=== PATIENT | male | born 1945 | race Caucasian/White ===

== ENCOUNTER 2018-08-13 12:52 | Outpatient (REF) | payer MEDICARE, MEDICAID, SELFPAY ==
[2018-08-13 22:18] LABS: Anion Gap 8.1 mmol/L (3-11); BUN 15 mg/dL (7-18); CO2 29.9 mmol/L (21.0-32.0); CREATININE 0.83 mg/dL (0.70-1.30); Calcium 10.5 mg/dL (8.5-10.1); Chloride 103 mmol/L (98-107); Glucose 87 mg/dL (70-100); Potassium 4.3 mmol/L (3.5-5.1); Sodium 141 mmol/L (136-145)
== END 2018-08-13 13:12 ==
LOC: NCHCN 12:52
PROVIDERS: PCP Nurse Practitioner Family; Visit Provider Nurse Practitioner Family
DX: R59.9 Enlarged lymph nodes, unspecified (principal); R91.8 Other nonspecific abnormal finding of lung field; E78.5 Hyperlipidemia, unspecified; R03.0 Elevated blood-pressure reading, without diagnosis of hypertension
CPT/HCPCS: 80048

== ENCOUNTER 2018-08-20 01:29 | Outpatient (CLI) | payer MEDICARE, MEDICAID, SELFPAY ==
--- NOTE | 2018-08-20 14:00 | DI.CT_ITS ---
SYMPTOM/DIAGNOSIS: F/U LUNG NODULE R91.8, CHEST CT: There is respiratory motion at the lung bases, limiting the exam. A previously noted left lower lobe nodule is not as well seen but remains present and not changed in size. Calcification is again noted at the left upper lobe. No new nodules, infiltrates or effusions are seen. There is no evidence of adenopathy. A small hiatal hernia is seen. There are few low density lesions in the liver which appear grossly stable. IMPRESSION: Limited exam due to respiratory motion at the lung bases. There has been no gross interval change in the size of the left lower lobe nodule. A 6 month follow up exam could be considered.
== END 2018-08-20 01:49 ==
PROVIDERS: PCP Nurse Practitioner Family; Visit Provider Nurse Practitioner Family
DX: R91.8 Other nonspecific abnormal finding of lung field (principal)
CPT/HCPCS: 71250

== ENCOUNTER 2018-10-11 10:43 | Outpatient (CLI) | payer MEDICARE, MEDICAID, SELFPAY ==
--- NOTE | 2018-10-11 11:18 | DI.US_ITS ---
SYMPTOMS/DIAGNOSIS: NONTOXIC SINGLE THYROID NODULE, E04.1 THYROID ULTRASOUND: Comparison CT scan is 10/01/18. The right lobe measures 4.8 x 1.5 x 1.3 cm. There is a 0.2 cm anechoic avascular cyst in the superior pole of the right lobe. There is a 0.2 cm hypoechoic avascular nodule in the lower pole of the right lobe of the thyroid gland. The left lobe measures 5.3 x 1.9 x 2 cm. There is a 2.7 x 1.9 x 1.6 cm well- circumscribed complex vascular nodule. This corresponds to the finding seen on the CT scan. No internal echogenic findings are seen to suggest calculi. The isthmus is within normal limits. There is a 0.2 cm anechoic avascular cyst in the isthmus. IMPRESSION: A 2.7 cm complex well-circumscribed vascular left thyroid mass. This corresponds to the finding on the CT scan of the neck. The finding is nonspecific. If further evaluation is warranted, nuclear medicine thyroid examination may be performed.
== END 2018-10-11 11:03 ==
PROVIDERS: PCP Nurse Practitioner Family; Visit Provider Physician Assistant
DX: E04.1 Nontoxic single thyroid nodule (principal)
CPT/HCPCS: 76536

== ENCOUNTER 2018-10-15 15:36 | Outpatient (CLI) | payer MEDICARE, MEDICAID, SELFPAY ==
[2018-10-15 16:53] LABS: Calcium 10.2 mg/dL (8.5-10.1); TSH (W/Ref FT4) 0.79 uIU/mL (0.358-3.74)
[2018-10-24 14:22] LABS: 1,25-Dihydroxyvitamin D 61 pg/mL (18-64)
== END 2018-10-15 15:56 ==
PROVIDERS: PCP Nurse Practitioner Family; Visit Provider Physician Assistant
DX: E07.89 Other specified disorders of thyroid (principal); F17.200 Nicotine dependence, unspecified, uncomplicated; E83.52 Hypercalcemia
CPT/HCPCS: 36415; 82310; 82652; 84443

== ENCOUNTER 2019-02-18 22:13 | Outpatient (REF) | payer MEDICARE, MEDICAID, SELFPAY ==
[2019-02-18 22:58] LABS: AST 16 U/L (15-37); Anion Gap 11.4 mmol/L (3-11); BUN 17 mg/dL (7-18); CO2 26.6 mmol/L (21.0-32.0); CREATININE 0.79 mg/dL (0.70-1.30); Calcium 9.6 mg/dL (8.5-10.1); Calculated LDL 85 mg/dL; Chloride 105 mmol/L (98-107); Cholesterol 133 mg/dL (50-200); Glucose 80 mg/dL (70-100); HDL Cholesterol 30 mg/dL (40-60); Potassium 4.4 mmol/L (3.5-5.1); Sodium 143 mmol/L (136-145); Triglyceride 91 mg/dL (30-150)
[2019-02-18 23:10] LABS: ALT 27 U/L (12-78); Creatine Kinase 58 U/L (39-308)
== END 2019-02-18 22:33 ==
LOC: NCHCN 22:13
PROVIDERS: PCP Nurse Practitioner Family; Visit Provider Nurse Practitioner Family
DX: I10 Essential (primary) hypertension (principal); E78.5 Hyperlipidemia, unspecified; E07.9 Disorder of thyroid, unspecified; R22.0 Localized swelling, mass and lump, head
CPT/HCPCS: 80048; 80061; 82550; 83721; 84450; 84460

== ENCOUNTER 2019-02-26 00:30 | Outpatient (CLI) | payer MEDICARE, MEDICAID, SELFPAY ==
--- NOTE | 2019-02-26 12:45 | DI.CTLCSR_ITS ---
SYMPTOMS/DIAGNOSIS: F17.210, CURRENT CIGARETTE SMOKER CT CHEST LUNG CANCER SCREENING: CT scan of the chest was performed according to low dose protocol. Comparison is 08/20/18. There is atherosclerosis of the thoracic aorta but no aneurysmal dilatation is seen. The heart size is within normal limits. No significant pericardial effusion is present. Coronary artery calcifications are identified. No evidence of mediastinal or hilar adenopathy, pleural effusion or pneumothorax is identified. There is a calcified granuloma in the left upper lobe. The nodular area in the left lower lobe is again seen and measures 1 cm in maximum diameter. It is unchanged in size compared to the prior examination. No new pulmonary nodules are seen. The tracheobronchial tree is unremarkable. There are a few tiny blebs seen in the right upper lobe. Scarring or atelectatic changes are seen in the lung bases. The upper abdominal images show no acute abnormality. Degenerative changes are seen in the spine. IMPRESSION: Stable pulmonary nodule. Category 4A examination. Lung-RAD Category: Lung RADS Category 4A- Suspicious. Three month follow up CT or PET CT.
== END 2019-02-26 00:50 ==
PROVIDERS: PCP Nurse Practitioner Family; Visit Provider Nurse Practitioner Family
DX: Z12.2 Encounter for screening for malignant neoplasm of respiratory organs (principal); F17.210 Nicotine dependence, cigarettes, uncomplicated; R91.1 Solitary pulmonary nodule
CPT/HCPCS: G0297

== ENCOUNTER 2019-05-17 11:51 | Outpatient (CLI) | payer MEDICARE, MEDICAID, SELFPAY ==
[2019-05-17 14:38] LABS: Calcium 10.1 mg/dL (8.5-10.1); TSH (W/Ref FT4) 0.63 uIU/mL (0.36-3.74)
== END 2019-05-17 12:11 ==
PROVIDERS: PCP Nurse Practitioner Family; Visit Provider Otolaryngology Otolaryngology/Facial Plastic Surgery
DX: E04.1 Nontoxic single thyroid nodule (principal)
CPT/HCPCS: 36415; 82310; 84443

== ENCOUNTER 2019-05-20 00:51 | Outpatient (CLI) | payer MEDICARE, MEDICAID, SELFPAY ==
--- NOTE | 2019-05-20 12:05 | DI.US_ITS ---
EXAM: US THYROID CLINICAL HISTORY: THYROID NODULE E04.1, F17.200 SMOKER. TECHNIQUE: Ultrasound performed using standard protocol. COMPARISON: US thyroid from 10/11/2018 FINDINGS: Thyroid ultrasound was performed according to the usual protocol. Right thyroid lobe measures 52 x 1 1 x 18 millimeters and left thyroid lobe measures 50 x 16 x 29 millimeters. The thyroid isthmus stefany ures 3 millimeters in thickness. To tiny right lobe thyroid cysts are noted. There is a dominant 24 millimeter in greatest diameter l eft thyroid lobe complex mass as seen on prior study of August 2018. No change in appearance since that time. There is moderate generalized heterogeneity of the thyroid parenchyma. IMPRESSION: Stable complex nodule of the left thyroid lobe, follow-up ultrasound suggested in 12 months. This measured 27 millimeters in diameter on the prior study and 24 millimeters in greatest diameter on the current study.
== END 2019-05-20 01:11 ==
PROVIDERS: PCP Nurse Practitioner Family; Visit Provider Otolaryngology Otolaryngology/Facial Plastic Surgery
DX: E04.1 Nontoxic single thyroid nodule (principal); F17.200 Nicotine dependence, unspecified, uncomplicated
CPT/HCPCS: 76536

== ENCOUNTER 2019-05-28 13:35 | Outpatient (CLI) | payer MEDICARE, MEDICAID, SELFPAY ==
[2019-05-28 15:04] LABS: Anion Gap 8.5 mmol/L (3-11); CO2 28.5 mmol/L (21.0-32.0); Calcium 9.7 mg/dL (8.5-10.1); Chloride 105 mmol/L (98-107); Potassium 4.2 mmol/L (3.5-5.1); Sodium 142 mmol/L (136-145); TSH (W/Ref FT4) 0.53 uIU/mL (0.36-3.74)
[2019-05-29 12:10] LABS: Parathyroid Hormone,Intact 63 pg/ml (19-88)
[2019-05-30 06:00] LABS: Vitamin D 25 Total 31.1 ng/ml (30-100)
== END 2019-05-28 13:55 ==
PROVIDERS: PCP Nurse Practitioner Family; Visit Provider Otolaryngology Otolaryngology/Facial Plastic Surgery
DX: E04.1 Nontoxic single thyroid nodule (principal); E83.52 Hypercalcemia
CPT/HCPCS: 36415; 80051; 82306; 82310; 83970; 84443

== ENCOUNTER 2019-06-11 01:26 | Outpatient (CLI) | payer MEDICARE, MEDICAID, SELFPAY ==
[2019-06-11 12:16] LABS: CREATININE 0.82 mg/dL (0.70-1.30)
--- NOTE | 2019-06-11 12:57 | DI.CT_ITS ---
EXAM: CT CHEST W CLINICAL HISTORY: LUNG NODULE R91.8 TECHNIQUE: 70 cc of Omnipaque 350 IV COMPARISON: CHEST - LUNG CANCER SCREENING from 02/23/2018 CT CHEST LUNG CANCER SCREEN from 02/26/2019 FINDINGS: Exam is mildly limited by respiratory motion at the lung bases. Previously noted nodule in the left lower lobe appears unchanged. Calcification is again seen in the left upper lobe. There are mild u nderlying emphysematous changes and mild pulmonary scarring. No adenopathy seen. The heart size is normal. Coronary artery calcifications and atherosclerotic changes of the aorta are noted. No infil trates, pleural or pericardial effusions are seen. There is a stable nodule in the left lobe of the thyroid. Multiple low-density lesions are seen in the liver, unchanged, consistent with cysts. The gallbladder, spleen, pancreas and upper portions of the kidneys are unremarkable. IMPRESSION: The left lower lobe nodule is unchanged when compared with 2018. Annual low-dose screening CT is rec ommended.
[2019-06-11] MEDS: Omnipaque 350 MG/ML 100 ML BTL IV (12:59)
== END 2019-06-11 01:46 ==
PROVIDERS: PCP Nurse Practitioner Family; Visit Provider Nurse Practitioner Family
DX: R91.8 Other nonspecific abnormal finding of lung field (principal); J98.4 Other disorders of lung; J43.8 Other emphysema; E04.1 Nontoxic single thyroid nodule
CPT/HCPCS: 71260; 82565; J3490

== ENCOUNTER 2019-11-26 00:44 | Outpatient (CLI) | payer MEDICARE, MEDICAID, SELFPAY ==
--- NOTE | 2019-11-26 | DI.US_ITS ---
EXAM: US THYROID CLINICAL HISTORY: THYROID NODULE, E04.1,THYROID MASS,E07.9. TECHNIQUE: Ultrasound thyroid performed using standard protocol. COMPARISON: US thyroid from 10/11/2018 US THYROID from 05/20/2019 FINDINGS: Echogenicity: Overall thyroid echotexture is normal. There are a few tiny cystic areas. Vascularity: Normal. ISTHMUS: 4 mm RIGHT LOBE: Size: 5.2 by 1.4 x 1.8 cm cm Nodules: None. LEFT LOBE: Size: 5.0 x 1.6 x 2.9 cm Echogenicity: Normal. Vascularity: Normal. Nodules: Circumscribed nodule measuring 2.8 x 1.7 x 1.8 cm. The appearance is unchanged.. OTHER FINDINGS: None. IMPRESSION: Stable circumscribed nodule at the upper pole of the left lobe of the thyroid.. DATA REPOSITORY:
== END 2019-11-26 01:04 ==
PROVIDERS: PCP Nurse Practitioner Family; Visit Provider Otolaryngology Otolaryngology/Facial Plastic Surgery
DX: E04.1 Nontoxic single thyroid nodule (principal); E07.89 Other specified disorders of thyroid
CPT/HCPCS: 76536

== ENCOUNTER 2019-12-05 01:09 | Outpatient (CLI) | payer MEDICARE, MEDICAID, SELFPAY ==
[2019-12-05 11:58] LABS: TSH (W/Ref FT4) 0.12 uIU/mL (0.36-3.74)
[2019-12-05 12:14] LABS: FREE T4 1.34 ng/dL (0.76-1.46)
== END 2019-12-05 01:29 ==
PROVIDERS: PCP Nurse Practitioner Family; Visit Provider Otolaryngology Otolaryngology/Facial Plastic Surgery
DX: E04.1 Nontoxic single thyroid nodule (principal); E07.9 Disorder of thyroid, unspecified
CPT/HCPCS: 36415; 84439; 84443

== ENCOUNTER 2019-12-27 04:01 | Outpatient (CLI) | payer MEDICARE, MEDICAID, SELFPAY ==
[2019-12-27 11:36] LABS: ALT 29 U/L (16-63); AST 17 U/L (15-37); Albumin 4.2 g/dL (3.4-5.0); Alkaline Phosphatase 39 U/L (46-116); Anion Gap 7.7 mmol/L (3-11); BUN 18 mg/dL (7-18); CO2 29.3 mmol/L (21.0-32.0); Calcium 9.8 mg/dL (8.5-10.1); Chloride 102 mmol/L (98-107); Glucose 84 mg/dL (74-106); HDL Cholesterol 34 mg/dL (40-60); LDL CHOLESTEROL 138 mg/dL (<100); Potassium 4.3 mmol/L (3.5-5.1); Sodium 139 mmol/L (136-145); Total Protein 7.5 g/dL (6.4-8.2)
[2019-12-27 11:39] LABS: FREE T4 1.23 ng/dL (0.76-1.46)
[2019-12-27 11:47] LABS: Creatine Kinase 98 U/L (39-308)
[2019-12-27 16:25] LABS: T3,Free 4.9 pg/mL (2.8-5.3)
== END 2019-12-27 04:21 ==
PROVIDERS: Physician Assistant; PCP Nurse Practitioner Family; Visit Provider Nurse Practitioner Family
DX: I10 Essential (primary) hypertension (principal); E78.5 Hyperlipidemia, unspecified; E04.1 Nontoxic single thyroid nodule
CPT/HCPCS: 36415; 80053; 82550; 83721; 83718; 84439; 84481

== ENCOUNTER 2019-12-31 00:56 | Outpatient (CLI) | payer MEDICARE, MEDICAID, SELFPAY ==
--- NOTE | 2019-12-31 | DI.US_ITS ---
EXAM: US HERNIA CLINICAL HISTORY: LARGE NON TENDER MASS, LIKELY HERNIA, K46.9,. TECHNIQUE: Ultrasound was performed using standard protocol. COMPARISON: No exams were available for comparison FINDINGS: Sonographic assessment utilizing grayscale and color Doppler imaging was performed and targeted to th e area of clinical concern. There is a left inguinal hernia. With Valsalva, a loop of bowel is seen to enter the hernia. There is no fluid or findings to suggest incarceration. No mass or adenopathy is seen. IMPRESSION: Reducible left inguinal hernia. DATA REPOSITORY:
== END 2019-12-31 01:16 ==
PROVIDERS: PCP Nurse Practitioner Family; Visit Provider Nurse Practitioner Family
DX: K40.90 Unilateral inguinal hernia, without obstruction or gangrene, not specified as recurrent (principal)
CPT/HCPCS: 76857

== ENCOUNTER 2020-01-09 01:59 | Outpatient (CLI) | payer MEDICARE, MEDICAID, SELFPAY ==
--- NOTE | 2020-01-09 10:00 | DI.NM_ITS ---
EXAM: NM I123 THYROID UP SC DAY 1 CLINICAL HISTORY: LOW TSH LEVEL,R79.89,HYPERTHYROIDISM,E05.90,THYROID NODULE. COMPARISON: No exams were available for comparison EXAMINATION: This examination was performed as a 2 day protocol, please see the day 2 report January 10, 2020. I 123 thyroid scan and uptake showed normal range total thyroid uptake with focal hyper intensity of uptake in left upper pole of the thyroid corresponding to a thyroid nodule identified ultrasonographi bhargav. FINDINGS: IMPRESSION:
== END 2020-01-09 02:19 ==
PROVIDERS: PCP Nurse Practitioner Family; Visit Provider Physician Assistant
DX: E05.90 Thyrotoxicosis, unspecified without thyrotoxic crisis or storm (principal); E07.89 Other specified disorders of thyroid; R79.89 Other specified abnormal findings of blood chemistry
CPT/HCPCS: A9516

== ENCOUNTER 2020-01-10 01:59 | Outpatient (CLI) | payer MEDICARE, MEDICAID, SELFPAY ==
--- NOTE | 2020-01-10 10:00 | DI.NM_ITS ---
EXAM: NM I123 THYROID UP SC DAY 2 CLINICAL HISTORY: LOW TSH LEVEL,R79.89,HYPERTHYROIDISM,E05.90,THYROID NODULE,E04.1. COMPARISON: US US THYROID from 11/26/2019 NM NM I123 THYROID UP SC DAY 1 from 01/09/2020 EXAMINATION: Thyroid uptake and scan was performed according to the usual protocol. 340 microcuries of I 123 was administered. Imaging of the thyroid shows relatively increased uptake in the upper pole of left thyroid lobe, catherine esponding to the nodule identified on thyroid ultrasound, this indicates that this is a hyperfunction ing nodule. 24 hour and 4 hour uptake determination show 7 percent uptake at 4 hours and 18 percent uptake at 24 hours, each of these values is within the normal range. FINDINGS: Normal thyroid uptake determination utilizing I 123. Increased localized uptake focally in the upper pole of the left thyroid lobe corresponding to the ul trasound graphically identified left upper pole mass, this appears to be a hyper functioning thyroid nodule. IMPRESSION:
== END 2020-01-10 02:19 ==
PROVIDERS: PCP Nurse Practitioner Family; Visit Provider Physician Assistant
DX: R79.89 Other specified abnormal findings of blood chemistry (principal); E05.90 Thyrotoxicosis, unspecified without thyrotoxic crisis or storm; E04.1 Nontoxic single thyroid nodule
CPT/HCPCS: 78014; A9512

== ENCOUNTER → 2020-01-24 07:45 | Outpatient (BNVA) | payer MEDICARE, MEDICAID, SELFPAY | PROVIDERS: PCP Nurse Practitioner Family; Referring Provider Nurse Practitioner Family; Visit Provider Surgery | DX: K40.90 Unilateral inguinal hernia, without obstruction or gangrene, not specified as recurrent (principal); Z01.818 Encounter for other preprocedural examination | CPT/HCPCS: 99203; 99214 ==

== ENCOUNTER 2020-02-27 00:14 | Outpatient (CLI) | payer MEDICARE, MEDICAID, SELFPAY ==
--- NOTE | 2020-02-27 | DI.US_ITS ---
APPROVED REPORT EXAM: Comprehensive 2D, Doppler, and color-flow Echocardiogram Patient Location: Out-Patient Lead Burner Supervisor: Verónica Cunningham RDCS (AE) Indications: Murmur Other Information Study Quality: Adequate Conclusion Left Ventricle : The left ventricle is normal size. The left ventricular systolic function is normal. The left ventricular ejection fraction is within the normal range. There is normal left ventricular wall thickness. There is normal LV segmental wall motion. LVEF is 55%. Right Ventricle : The right ventricle is normal size. The right ventricular systolic function is norm al. The RVSP is 23mmHg. Atria : Left atrium is borderline dilated. Right atrium is mildly dilated. Aortic Valve : Aortic valve is trileaflet. There is no aortic valvular stenosis. Mild aortic regurgit ation. Great Vessels : The aortic root is normal in size. The ascending aorta is normal in size. Aortic arch is normal in caliber. IVC is normal in size and collapses >50% with inspiration. There is no prior study available for comparison. Wall motion Left Ventricle The left ventricle is normal size. The left ventricular systolic function is normal. The left ventric ular ejection fraction is within the normal range. There is normal left ventricular wall thickness. T here is normal LV segmental wall motion. There is no ventricular septal defect visualized. LVEF is 55 %. Right Ventricle The right ventricle is normal size. The right ventricular systolic function is normal. The RVSP is 23 mmHg. Atria Left atrium is borderline dilated. Right atrium is mildly dilated. The interatrial septum is intact w ith no evidence for an atrial septal defect. Aortic Valve Aortic valve is trileaflet. There is no aortic valvular stenosis. Mild aortic regurgitation. Mitral Valve The mitral valve is normal in structure. No evidence of mitral valve stenosis. Trace to mild mitral r egurgitation. Tricuspid Valve The tricuspid valve is normal in structure. There is no tricuspid valve stenosis. Mild tricuspid regu rgitation. Pulmonic Valve The pulmonary valve is normal in structure. There is no pulmonic valvular stenosis. Mild pulmonic reg urgitation. Great Vessels The aortic root is normal in size. The ascending aorta is normal in size. Aortic arch is normal in ca liber. IVC is normal in size and collapses >50% with inspiration. Pericardium There is no pericardial effusion. 2D Dimensions IVSD d PLAX 0.93 cm M: 0.6-1.2 LVPW d PLAX 0.90 cm M: 0.6 - 1.2 LVID d PLAX 4.75 cm M: 4.2 - 5.8 LVDs 3.46 cm M: 2.5 - 4.0 Ao Root d 3.12 cm M: 3.1 - 3.7 Ao Asc Diam d 3.27 cm M: 2.6 - 3.4 LV EF Teichholz 52.8 % M-Mode TAPSE 2.42 cm (M/F) >1.7 LV Diastology MV E' medial 0.076 (>0.07 m/s) E/A Ratio 0.9 MV E' lateral 0.108 (>0.1 m/s) MV E Vmax 0.55 (0.4-1.3 m/s) MV E/E' medial 7.20 MV A Vmax 0.63 (0.4-1.3 m/s) MV E/E' lateral 5.11 MV E/A Ratio 0.08 E Peak Velocity 0.55 m/s A Peak Velocity 0.63 m/s Aortic Valve LVOT Vmax 1.26 m/s CHRISTINA 3.56 cm2 LVOT Mean Josesito. 0.71 m/s AoV Area Vmax 3.56 cm2 LVOT Peak Grad 6.4 mmHg AoV Area/ BSA (Vmax) 2.04 cm2/m2 LVOT Mean Grad 2.5 mmHg CHRISTINA Mean Josesito. 3.01 cm2 LVOT VTI 0.217 m CHRISTINA Mean Josesito. Index 1.73 cm2/m2 LVOT Diam s 2.18 cm AoV Vmax 1.32 m/s Velocity Ratio 0.95 AoV Mean Josesito. 0.88 m/s AoV Peak Grad 7.0 mmHg AoV Mean Grad 3.7 mmHg Mitral Valve MV DT 196 (160-240 msec) Pulmonary Valve PV Vmax 1.16 (0.5-1.5 m/s) PV Peak Grad 5.4 mmHg PV Mean Grad 2.3 mmHg Tricuspid Valve TR Peak Grad 19.9 mmHg TR Vmax 2.23 m/s RA Pressure 3.00 mmHg RVSP (TR) 22.9 mmHg
== END 2020-02-27 00:34 ==
PROVIDERS: PCP Nurse Practitioner Family; Visit Provider Nurse Practitioner Family
DX: R01.1 Cardiac murmur, unspecified (principal); I35.1 Nonrheumatic aortic (valve) insufficiency
CPT/HCPCS: 93306

== ENCOUNTER 2020-03-04 09:30 | Outpatient (REF) | payer MEDICARE, MEDICAID, SELFPAY ==
[2020-03-04 23:16] LABS: ALT 29 U/L (16-63); AST 16 U/L (15-37); HDL Cholesterol 29 mg/dL (40-60); LDL CHOLESTEROL 90 mg/dL (<100)
[2020-03-04 23:30] LABS: Creatine Kinase 65 U/L (39-308)
== END 2020-03-04 09:50 ==
LOC: NCHCN 09:30
PROVIDERS: PCP Nurse Practitioner Family; Visit Provider Nurse Practitioner Family
DX: E78.5 Hyperlipidemia, unspecified (principal)
CPT/HCPCS: 82550; 83721; 83718; 84450; 84460

== ENCOUNTER 2020-03-21 07:33 | Outpatient (CLI) | payer MEDICARE, MEDICAID, SELFPAY ==
[2020-03-22 23:38] LABS: COVID-19 RT-PCR Result NEGATIVE (Negative)
== END 2020-03-21 07:53 ==
PROVIDERS: PCP Nurse Practitioner Family; Visit Provider Surgery
DX: Z01.818 Encounter for other preprocedural examination (principal)
CPT/HCPCS: U0003

== ENCOUNTER 2020-03-25 11:30 | Day surgery (SDC) | payer MEDICARE, MEDICAID, SELFPAY ==
--- NOTE | 2020-03-23 11:32 | NUR.NOTE ---
03/23/20: Was informed by Blane Duncan about patients cognition level regarding his COVID testing this weekend, pt. drove to [facility] office, and sat in [facility] for an hour, before COVID testing center called pt. to see where he was, per Blane, pt. told him, that he was here for his surgery, and he didn't know how he was going to get home from his surgery. Pt. was educated that this was not his surgery date and that he was going to be COVID tested. This RN did a pre-op call with the pt. female friend Scarlett Schultz who is his caregiver. She seemed somewhat confused herself, but was able to answer questions for the patient regarding his medical history and medications. Pt. caregiver was educated on pre-op instructions, and arrival time, also reminded that he is to quarentine and by that was instructed to stay home and not leave the house until his surgery day. Caregiver stated she is going to be his ride to and from surgery, and stated she would be home with his post-operatively. This RN reached out to Ann George at [facility] to inform her of said events and she stated that she will inform Dr. Resendiz, and this RN also informed care management to reach out to Pt. to provided support and possible VNA survices if able, post-op.Nursing Note:
[2020-03-25] VITALS (7 sets, daily range): BP systolic 136–154; BP diastolic 71–83; PULSE 74–80; RESP 15–26; TEMP 36.3–36.7; O2SAT 94–97
--- NOTE | 2020-03-25 06:52 | W.PM.OP ---
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 Has history of prior strangulated RIH Findings: Large Direct inguinal hernia Procedure Description: After informed concent was obtained the patient was taken to the operating room and placed in a supine position. Monitors and SCDs were applied and a timeout was done. The patient's name, date of , procedure type, procedure site, allergies to medications, preoperative antibiotic, and DVT prophylaxis were all reviewed. Fire risk was assessed. Next anesthesia did a tap block on the left side under ultrasound guidance. Please see their separate dictation. Once anesthesia was done the abdomen was prepped and draped in a sterile surgical fashion. 1% lidocaine was injected into the dermis in the left lower quadrant. An incision was made with a 10 blade in the left lower quadrant. Dissection was done with cautery through the subcutaneous tissues and Nash's fascia down to the external oblique fascia. The external ring was identified and the external oblique fascia was opened sharply through the external ring. The cut fascia was grasped with hemostats the cord structures were identified and a Randolph drain was placed around them. The cremasteric muscle was dissected away from the cord structures using both cautery and blunt dissection. A large Direct defect was noted with omentuma nd pre-peritoneal fat coming up through the floor. A 3 x 6 piece of mesh was then cut to size and attached to the lacunar ligament using a 2-0 Prolene double armed suture. The mesh was secured laterally and medially with a 2-0 Prolene, with a running suture. The tails of the mesh were wrapped around the cord structures effectively cinching down the internal ring. Once the mesh was secured the tissues were irrigated with some normal saline. No bleeding was identified. The external oblique fascia was re-approximated using 2-0 Vicryl running suture. The Nash's fascia was re-approximated using interrupted 3-0 Vicryl. The dermis was re-approximated with a running 4-0 Vicryl. The skin was cleaned and dried and skin affix was applied. The patient was woken up and taken back to recovery in stable condition. There were no immediate complications. Sponge, instrument and needle counts were correct at the end of the case x2.
--- NOTE | 2020-03-25 06:53 | PDOC.DSDIS_ITS ---
Discharge Plan Disposition Patient Disposition: HOME Condition: Good Discharge Details Reason For Visit: [facility] Attending Provider: Sandra Resendiz Primary Care Provider: Dede Garcia Home Meds and New Rx's Prescriptions: Continued lisinopril 10 mg tablet 10 mg PO DAILY RF: 0 simvastatin 20 mg tablet 20 mg PO DAILY RF: 0 nitroglycerin 0.4 MG tablet, sublingual 0.4 mg Sublingual PRN PRNRF: 0 Discharge Instructions Instructions: Inguinal Hernia Repair (DC) Additional Instructions: Activity at Home after surgery: 1. Make sure you walk outside at least 4 times per day 2. You should be able to climb a flight of stairs 3. No driving while in pain or taking pain medications 4. No strenuous activity or heavy lifting for 4 weeks (open surgery) Diet, Nutrition, & wound healin. Avoid alcohol until after you are recovered from your surgery 2. Make sure to eat plenty of lean protein (meat, fish, eggs, cottage cheese, beans) 3. Eat a variety of fruits and vegetables. Eat plenty of high fiber foods to avoid constipation. 4. Drink plenty of liquids to stay hydrated and avoid constipation Pain Medications: 1. Tylenol 650 mg every 6 hours as needed and Ibuprofen 600 mg every 6 hours as needed.May alternate between the two every 3 hours 2. If a narcotic has been prescribed take as directed only for breakthrough pain For Constipation: 1. Take Milk of Magnesia or MiraLax as needed for constipation Other: 1. You may shower daily. Do not scrub the incisions 2. Do not soak the incisions for 1 week 3. You may alternate ice and heat as needed for pain and swelling Wound Care: 1. Keep the incisions clean and dry Other Services that may have been ordered: 0 Home Health- to help with dressing changes 0 Outpatient physical therapy Please call our office if you develop: 1. Fevers >101.5 2. Nausea or Vomiting 3. Worsening pain 4. Redness and thick discharge from the wounds If after hours please call the Hospital at and ask to speak to the on-call surgeon Referrals: Sandra Resendiz MD [ [facility] STAFF PHYSICIAN] - 04/07/20 10:30 am Activity:: Activity as Tolerated Diet:: As Tolerated Discharge Orders Discharge Orders: Discharge Order (Routine); Ordered 03/25/20 Ordered By: Sandra Resendiz
[2020-03-25] MEDS: Acetaminophen 500 MG TAB 1000 MG PO (12:10)
[2020-03-25] MEDS: Celecoxib 200 MG CAP PO (12:11)
[2020-03-25] MEDS: Lactated Ringers 1,000 ML 80 ML IV (12:20)
--- NOTE | 2020-03-25 12:35 | HPE_ITS ---
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 Has h istory of prior strangulated RIH. Discussed inguinal hernia repair with mesh, discussed complications and risks. Discussed post-operative restrictions. Discussed pain controll. Reveiwed COVID testing as well as quarentine requirements. 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 Has history of prior strangulated RIH. Discussed inguinal hernia repair with mesh, discussed complications and risks. Discussed post-operative restrictions. Discussed pain controll. Reveiwed COVID testing as well as quarentine requirements. There have been no changes in his history since he was seen Review of Systems Cardiovascular Cardiovascular: Denies chest pain, Denies chest pain at rest, Denies irregular heart rhythm, Denies dyspnea and Denies dyspnea on exertion Respiratory Respiratory: Reports cough, Denies dyspnea and Denies dyspnea on exertion Gastrointestinal Gastrointestinal: Reports as per HPI Genitourinary Genitourinary: Denies dysuria, Reports urinary incontinence and Denies urinary urgency Endocrine Endocrine: Reports system reviewed and no additional complaints, except as documented Hematologic/Lymphatic Hematologic/Lymphatic: Denies easy bruising and Denies lymphadenopathy [facility] Medical History Current smoker (Inactive) Hyperlipidemia (Acute) Hypertension (Chronic) Hyperthyroidism (Chronic) Lung nodule (Acute) Onychomycosis (Acute) Thyroid mass (Inactive) Thyroid nodule (Inactive) Venous stasis ulcer limited to breakdown of skin with varicose veins Surgical History H/O vein stripping (Acute) RLE History of umbilical hernia repair (Acute) S/P right inguinal hernia repair (Acute) Social History (Updated 01/24/20 @ 09:38 by Sandra Resendiz MD) Smoking/Tobacco Use Status: Current every day Tobacco Type: cigarettes Years smoked: 53 Alcohol Intake: never Drug use: Never Substance use type: does not use Household members: none Other: Has a Caregiver- Scarlett Do you feel safe at home: Yes Additional Social history: Caregiver Scarlett Richard answering questions for pt. Meds Home Medications and Allergies Home Medications Medication Instructions Recorded Confirmed Type nitroglycerin 0.4 mg SUBLINGUAL PRN PRN 03/01/17 03/23/20 History lisinopril 10 mg tablet 10 mg PO DAILY 01/13/20 03/25/20 History simvastatin 20 mg tablet 20 mg PO DAILY 01/30/20 03/25/20 History Allergies Allergy/AdvReac Type Severity Reaction Status Date / Time No Known Allergies Allergy Unverified 03/25/20 11:58 Exam Resp Effort & Inspection: normal respiratory effort Auscultation: clear to auscultation bilaterally Cardio Rate: regular rate Rhythm: regular rhythm Heart Sounds: no gallops, murmur and no rubs GI Inspection: normal to inspection Palpation: soft and no hepatosplenomegaly Auscultation: normal bowel sounds Results Last Vital Signs Temp 98.1 F 03/25/20 11:50 Pulse 80 03/25/20 11:50 Resp 20 03/25/20 11:50 BP 136/76 03/25/20 11:50 Pulse Ox 95 03/25/20 11:50
[2020-03-25] MEDS: ceFAZolin 2 GM/50 ML BAG IVPB (12:38)
[2020-03-25] MEDS: Bupivacaine LIPOSOME/PF 133 MG/10 ML VIAL IJ (13:00)
[2020-03-25] MEDS: Bupivacaine 0.25% Pres-Free 30 ML VIAL (13:00)
[2020-03-25] MEDS: Lidocaine 1% Multi-Dose 50 ML VIAL (13:14)
== END 2020-03-25 16:05 | disposition home or self-care (01) ==
LOC: SUR 11:31
PROVIDERS: PCP Nurse Practitioner Family; Visit Provider Surgery
PROC: (CPT 49505; principal; 2020-03-25 12:30)
DX: K40.90 Unilateral inguinal hernia, without obstruction or gangrene, not specified as recurrent (principal); G89.18 Other acute postprocedural pain; F17.210 Nicotine dependence, cigarettes, uncomplicated; I10 Essential (primary) hypertension
CPT/HCPCS: 49505; 76942; NC; C1781; J0690; J1100; J1885; J2405; J2704

== ENCOUNTER → 2020-04-07 14:15 | Outpatient (BNVA) | payer MEDICARE, MEDICAID, SELFPAY | PROVIDERS: PCP Nurse Practitioner Family; Referring Provider Nurse Practitioner Family; Visit Provider Surgery | DX: Z48.815 Encounter for surgical aftercare following surgery on the digestive system (principal); I10 Essential (primary) hypertension ==

== ENCOUNTER 2020-06-12 04:24 | Outpatient (CLI) | payer MEDICARE, MEDICAID, SELFPAY ==
--- NOTE | 2020-06-12 | DI.CTLCSR_ITS ---
EXAM: CT CHEST LUNG CANCER SCREEN CLINICAL HISTORY: F/U LUNG NODULE,R91.8,CURRENT SMOKER,F17.210,SCREENING FOR LUNG CA TECHNIQUE: Imaging Protocol: Axial computed tomography images with coronal and sagittal reformatted images were created and reviewed COMPARISON: CT CT CHEST LUNG CANCER SCREEN from 02/26/[address] CHEST W from 06/11/2019 FINDINGS: Tracheobronchial tree: Patent where visualized. Mediastinum and Tresa: No dominant adenopathy or fluid collection. Calcified lymph node in the left hi lum. Pulmonary parenchyma: No focal consolidation. The left lower lobe nodule is unchanged. Calcified gr anuloma in the left upper lobe is unchanged. No new pulmonary nodules. Lung Nodules: Stable left lower lobe pulmonary nodule. Pleura: No effusion or pneumothorax. Heart: The heart is not dilated. Marked coronary artery calcification. No pericardial effusion. Aorta: Thoracic aorta non-dilated.Atherosclerosis. Upper abdomen: Unremarkable. Bones: Within normal limits. Degenerative changes. Soft Tissues: Unremarkable. IMPRESSION: Stable left lower lobe pulmonary nodule. Lung RADS Cat 2 - Benign Appearance / Behavior: Nodules with a very low likelihood of becoming a clin ically active cancer due to size or lack of growth Lung-RADS 1.0 CATEGORIES: Category 0 - Prior chest CT exam(s) being located for comparison. Category 1 - Annual screening in 12 months. No nodules or definitely benign nodules. Category 2 - Annual screening in 12 months. Benign appearance. Nodules with low likelihood of becomin g active cancer. Category 3 - 6-month follow-up. Probably benign. Short-term follow-up suggested. Nodules with low lik elihood of becoming active cancer. Category 4A - 3-month follow-up and CT/PET if >8 mm in size. Suspicious finding. Findings which requi re additional testing. Category 4B - Findings which require additional testing and tissue sampling. Suspicious finding. C Added to Any of the Above - History of prior lung cancer screening. S Added to Any of the Above - Significant unexpected other finding. RADIATION DOSE DELIVERED: 78.53mGy.cm Total DLP DATA REPOSITORY: All CT scans at this facility are submitted to the National Radiology Data Registry (NRDR) Dose Index Registry (DIR) with the [employer] (A[employer]). RADIATION OPTIMIZATION: All CT scans at this facility use at least one of these dose optimization te chniques: automated exposure control; mA and/or kV adjustment per patient size (includes targeted exa ms where dose is matched to clinical indication); or iterative reconstruction.
== END 2020-06-12 04:44 ==
PROVIDERS: PCP Nurse Practitioner Family; Visit Provider Nurse Practitioner Family
DX: R91.1 Solitary pulmonary nodule (principal); F17.210 Nicotine dependence, cigarettes, uncomplicated
CPT/HCPCS: G0297

== ENCOUNTER 2020-09-29 20:01 | Outpatient (REF) | payer MEDICARE, MEDICAID, SELFPAY ==
[2020-09-29 15:36] LABS: Anion Gap 10.2 mmol/L (3-11); BUN 16 mg/dL (7-18); CO2 26.8 mmol/L (21.0-32.0); CREATININE 0.8 mg/dL (0.70-1.30); Calcium 10.3 mg/dL (8.5-10.1); Chloride 102 mmol/L (98-107); Glucose 88 mg/dL (74-106); Potassium 4.4 mmol/L (3.5-5.1); Sodium 139 mmol/L (136-145)
== END 2020-09-29 20:02 | disposition home or self-care (01) ==
LOC: NCHCN 20:01
PROVIDERS: PCP Nurse Practitioner Family; Visit Provider Nurse Practitioner Family
DX: I10 Essential (primary) hypertension (principal)
CPT/HCPCS: 80048

== ENCOUNTER 2021-03-18 09:42 | Outpatient (REF) | payer MEDICARE, MEDICAID, SELFPAY ==
[2021-03-18 14:29] LABS: ALT 26 U/L (16-63); AST 20 U/L (15-37); HDL Cholesterol 32 mg/dL (40-60); LDL CHOLESTEROL 91 mg/dL (<100)
[2021-03-18 20:18] LABS: Creatine Kinase 147 U/L (39-308)
== END 2021-03-18 09:43 | disposition home or self-care (01) ==
LOC: NCHCN 09:42
PROVIDERS: PCP Nurse Practitioner Family; Visit Provider Nurse Practitioner Family
DX: E78.5 Hyperlipidemia, unspecified (principal)
CPT/HCPCS: 82550; 83721; 83718; 84450; 84460

== ENCOUNTER 2021-06-14 00:30 | Outpatient (CLI) | payer MEDICARE, MEDICAID, SELFPAY ==
--- NOTE | 2021-06-14 11:00 | DI.CTLCSR_ITS ---
Exam(s) CT CHEST LUNG CANCER SCREEN EXAM: CT CHEST LUNG CANCER SCREEN CLINICAL HISTORY: CIGARETTE SMOKER F17.210, LUNG NODULE KENRICK, SCREENING FOR LUNG CANCER TECHNIQUE: Imaging Protocol: Axial computed tomography images with coronal and sagittal reformatted images were created and reviewed COMPARISON: CT CT CHEST LUNG CANCER SCREEN from 02/26/[address] CHEST LUNG CANCER SCREEN from 02/26/[address] CHEST LUNG CANCER SCREEN from 06/12/[address] CHEST LUNG CANCER SCREEN from 06/12/2020 FINDINGS: Tracheobronchial tree: Patent where visualized. Pulmonary parenchyma: No consolidation or dominant measurable mass. Scarring in the lung bases. Stab le calcified granuloma in the left upper lobe. Lung Nodules: Stable 9 mm left lower lobe pulmonary nodule. No new pulmonary nodules. Mediastinum and Tresa: No dominant adenopathy or fluid collection. Calcified lymph node in the left hi lum. Thyroid gland: Unremarkable. Pleura: No effusion or pneumothorax. Heart: The heart is not dilated. Marked coronary artery calcification. No pericardial effusion. Aorta: Thoracic aorta non-dilated.Atherosclerosis. Upper abdomen: Unremarkable. Soft Tissues: Mild bilateral gynecomastia. Bones: Old nonunited right 6 rib fracture. Age-appropriate degenerative changes in the spine. IMPRESSION: Stable 1 mm left lower lobe pulmonary nodule. No new pulmonary nodules. Lung RADS Cat 2 - Benign Appearance / Behavior: Nodules with a very low likelihood of becoming a clin ically active cancer due to size or lack of growth Lung-RADS 1.0 CATEGORIES: Category 0 - Prior chest CT exam(s) being located for comparison. Category 1 - Annual screening in 12 months. No nodules or definitely benign nodules. Category 2 - Annual screening in 12 months. Benign appearance. Nodules with low likelihood of becomin g active cancer. Category 3 - 6-month follow-up. Probably benign. Short-term follow-up suggested. Nodules with low lik elihood of becoming active cancer. Category 4A - 3-month follow-up and CT/PET if >8 mm in size. Suspicious finding. Findings which requi re additional testing. Category 4B - Findings which require additional testing and tissue sampling. Suspicious finding. Modifier S- Potentially clinically significant finding. (Non lung cancer) RADIATION DOSE DELIVERED: 72.79mGy.cm Total DLP 1.84mGy CTDIvol 72.79mGy.cm Total DLP 1.84mGy CTDIvol DATA REPOSITORY: All CT scans at this facility are submitted to the National Radiology Data Registry (NRDR) Dose Index Registry (DIR) with the [employer] (ACR). RADIATION OPTIMIZATION: All CT scans at this facility use at least one of these dose optimization te chniques: automated exposure control; mA and/or kV adjustment per patient size (includes targeted exa ms where dose is matched to clinical indication); or iterative reconstruction.
== END 2021-06-14 00:50 ==
PROVIDERS: PCP Nurse Practitioner Family; Visit Provider Nurse Practitioner Family
DX: Z12.2 Encounter for screening for malignant neoplasm of respiratory organs (principal); F17.210 Nicotine dependence, cigarettes, uncomplicated; R91.1 Solitary pulmonary nodule
CPT/HCPCS: 71271

== ENCOUNTER 2021-09-20 15:14 | Outpatient (REF) | payer MEDICARE, MEDICAID, SELFPAY ==
[2021-09-20 20:15] LABS: Anion Gap 9.1 mmol/L (3-11); BUN 18 mg/dL (7-18); CO2 27.9 mmol/L (21.0-32.0); CREATININE 0.8 mg/dL (0.70-1.30); Calcium 9.8 mg/dL (8.5-10.1); Chloride 102 mmol/L (98-107); Glucose 83 mg/dL (74-106); Potassium 4.2 mmol/L (3.5-5.1); Sodium 139 mmol/L (136-145); TSH (W/Ref FT4) 0.34 uIU/mL (0.36-3.74)
[2021-09-20 20:27] LABS: Vitamin D 25 Total 42.6 ng/mL (30-100)
[2021-09-20 20:36] LABS: FREE T4 1.15 ng/dL (0.76-1.46)
== END 2021-09-20 15:15 | disposition home or self-care (01) ==
LOC: NCHCN 15:14
PROVIDERS: PCP Nurse Practitioner Family; Visit Provider Nurse Practitioner Family
DX: I10 Essential (primary) hypertension (principal); E55.9 Vitamin D deficiency, unspecified
CPT/HCPCS: 80048; 82306; 84439; 84443

== ENCOUNTER → 2022-03-01 02:53 | Outpatient (CLI) | payer MEDICARE, MEDICAID, SELFPAY ==
--- NOTE | 2022-03-01 09:15 | DI.US_ITS ---
Exam(s) US THYROID EXAM: US THYROID CLINICAL HISTORY: THYROID MASS, E07.9, RE-EVALUATE THYROID. TECHNIQUE: Ultrasound thyroid performed using standard protocol. COMPARISON: US US THYROID from 11/26/2019 US US OR ANESTHESIA from 03/25/2020 FINDINGS: ISTHMUS: 2.6 mm RIGHT LOBE: Size: 5.2 x 1.7 x 2.1 cm Echogenicity: Normal. Vascularity: Normal. Nodules: No suspicious nodules were present. There is a 3 mm cyst in the midpole. This is a TIRADS level 1. No follow-up is recommended. LEFT LOBE: Size: 4.5 x 2.6 x 2.3 cm Echogenicity: Normal. Vascularity: Normal. Nodules: There is again seen a 3.1 long by 2 AP by 2 transverse cm hypoechoic, mixed cystic and solid smoothly marginated nodule. No internal echogenic foci are seen. It corresponds with TIRADS level 3 nodule. Due to its size follow-up is recommended. OTHER FINDINGS: None. IMPRESSION: Stable left thyroid nodule. DATA REPOSITORY:
== END ==
PROVIDERS: PCP Nurse Practitioner Family; Visit Provider Nurse Practitioner Family
DX: E04.1 Nontoxic single thyroid nodule (principal)
CPT/HCPCS: 76536

== ENCOUNTER 2022-03-15 16:18 | Outpatient (REF) | payer MEDICARE, MEDICAID, SELFPAY ==
[2022-03-15 15:52] LABS: ALT 38 U/L (16-63); AST 23 U/L (15-37); HDL Cholesterol 34 mg/dL (40-60); LDL CHOLESTEROL 90 mg/dL (<100)
[2022-03-15 16:11] LABS: Creatine Kinase 196 U/L (39-308)
== END 2022-03-15 16:19 | disposition home or self-care (01) ==
LOC: NCHCN 16:18
PROVIDERS: PCP Nurse Practitioner Family; Visit Provider Nurse Practitioner Family
DX: E78.5 Hyperlipidemia, unspecified (principal)
CPT/HCPCS: 82550; 83721; 83718; 84450; 84460

== ENCOUNTER 2022-08-11 01:35 | Outpatient (CLI) | payer MEDICARE, MEDICAID, SELFPAY ==
--- NOTE | 2022-08-11 09:15 | DI.CTLCSR_ITS ---
Exam(s) CT CHEST LUNG CANCER SCREEN EXAM: CT CHEST LUNG CANCER SCREEN CLINICAL HISTORY: SCREENING FOR LUNG CA, SMOKER, F17.210, LUNG NODULE, R91.8. TECHNIQUE: Imaging Protocol: Low Dose Technique CONTRAST MATERIAL: None COMPARISON: CT CT CHEST LUNG CANCER SCREEN from 06/14/2021 FINDINGS: CHEST: LUNGS: Stable calcified granuloma in the left upper lobe is again noted.. Stable atelectasis in both lung bases again noted, unchanged no pleural effusions. Previously described small nodule in the le ft lower lobe is not evident on the present study. No new nodules evident in either lung. No new fi ndings in trachea and mainstem bronchi. MEDIASTINUM: There is no obvious hilar nor mediastinal adenopathy. CARDIAC: Heart size is normal. There is no pericardial effusion.Caliber of the thoracic aorta is wit hin normal limits. OTHER: OSSEOUS: No significant osseous lesions.. IMPRESSION: 1. Stable appearance without significant change compared to prior study of June 2021. No new nod ules. Stable atelectasis in both lung bases. No pleural effusions. Stable left upper lobe calcifie d granuloma. 2. No new intrathoracic adenopathy. 3. Lung RADS Cat 2 - Benign Appearance / Behavior: Nodules with a very low likelihood of becoming a c linically active cancer due to size or lack of growth Lung-RADS 1.0 CATEGORIES: Category 0 - Prior chest CT exam(s) being located for comparison. Category 1 - Annual screening in 12 months. No nodules or definitely benign nodules. Category 2 - Annual screening in 12 months. Benign appearance. Nodules with low likelihood of becomin g active cancer. Category 3 - 6-month follow-up. Probably benign. Short-term follow-up suggested. Nodules with low lik elihood of becoming active cancer. Category 4A - 3-month follow-up and CT/PET if >8 mm in size. Suspicious finding. Findings which requi re additional testing. Category 4B - Findings which require additional testing and tissue sampling. Category 4X - Category 3 or 4 nodules with additional features or imaging findings that increases the suspicion of malignancy. Modifier S- Potentially clinically significant findings (non lung cancer) RADIATION DOSE DELIVERED: 73.49mGy.cm Total DLP DATA REPOSITORY: All CT scans at this facility are submitted to the National Radiology Data Registry (NRDR) Dose Index Registry (DIR) with the [employer] (ACR). RADIATION OPTIMIZATION: All CT scans at this facility use at least one of these dose optimization te chniques: automated exposure control; mA and/or kV adjustment per patient size (includes targeted exa ms where dose is matched to clinical indication); or iterative reconstruction.
== END 2022-08-11 01:55 ==
PROVIDERS: PCP Nurse Practitioner Family; Visit Provider Nurse Practitioner Family
DX: Z12.2 Encounter for screening for malignant neoplasm of respiratory organs (principal); F17.210 Nicotine dependence, cigarettes, uncomplicated; R91.8 Other nonspecific abnormal finding of lung field; J98.11 Atelectasis; Z12.11 Encounter for screening for malignant neoplasm of colon
CPT/HCPCS: 71271

== ENCOUNTER 2022-08-22 07:09 | Day surgery (SDC) | payer MEDICARE, MEDICAID, SELFPAY ==
--- NOTE | 2022-08-21 19:19 | COLE_ITS ---
Date of service: 08/22/22 Time of Service: 09:48 Colonoscopy Report Date of procedure: 08/22/22 Pre-op diagnosis general: Screening colonoscopy Procedure: 1. Colonoscopy 2. polypectomy a. @75cm b. @65cm c. mid-rectum Surgeon: Deon Salcedo Anesthesia Type: MAC Estimated blood loss (mL): 3 Pathology: other (polyps: 1. @75cm 2. @65cm 3. mid-rectum) Complications: None Disposition: same day Indications: Screening for colorectal cancer Prep: Miralax/Dulcolax Retraction Time: >12 minute Findings: small polyps: 1. @75cm 2. @65cm 3. mid-rectum Procedure Description: After informed consent was obtained, the patient was taken to the procedure room and placed in a left decubitus position. Monitors were applied and a time out was done. The patient's name, date of , procedure, allergies to medications, and metal in their body were reviewed. The patient was then sedated. Once sedated and comfortable, a digital rectal exam was done. External exam showed congested papillae. Internal exam revealed normal sphincter tone, and no palpable masses or gross blood. The colonoscope was then introduced and advanced to the cecum under direct visualization without difficulty. The ileocecal valve and appendiceal orifice were visualized. The prep was fair.? ?The scope was then slowly withdrawn over 12 minutes in a circumferential manner to the rectum. In doing so, three polyps were encountered. 1. polyp @75cm. 2. polyp @65cm. 3. mid-rectum polyp. They were each taken by jumbo forceps.? There? was scattered, minimal diverticulosis noted. The mucosa is pink and healthy.? In the rectum, the scope was retroflexed, and moderate internal hemorrhoids were noted.? The scope was straig htened and withdrawn from the anus. The patient tolerated the procedure well, and there were no immediate complications.? The patient was taken to the Day Surgery Unit recovery?area in good condition. Follow up: await pathology
--- NOTE | 2022-08-21 19:21 | W.PM.DSUDISC ---
Date of service: 08/22/22 Time of Service: 09:53 Discharge Plan Disposition Patient Disposition: Home Condition: Stable Discharge Details Reason For Visit: Screening for colorectal cancer Attending Provider: Deon Salcedo Primary Care Provider: Dede Garcia Home Meds and New Rx's Prescriptions: No Action bisacodyl [Dulcolax (bisacodyl)] 5 mg tablet,delayed release (DR/EC) 5 mg PO ONCE Qty: 4 0RF Rx Instructions: Take according to provider's instructions for colonoscopy prep. lisinopril 10 mg tablet 10 mg PO DAILY simvastatin 20 mg tablet 20 mg PO DAILY cholecalciferol (vitamin D3) 25 mcg (1,000 unit) capsule 25 mcg PO DAILY polyethylene glycol 3350 17 gram/dose powder 238 g PO ONCE Qty: 238 0RF Rx Instructions: take per colonoscopy instructions Discharge Instructions Instructions: Colonoscopy (DC), Diverticulosis (GEN) Activity:: Activity as Tolerated Diet:: As Tolerated
[2022-08-22 07:15] VITALS: BP 138/112; PULSE 109; RESP 18; TEMP 36.5; O2SAT 97
[2022-08-22 07:40] VITALS: BP 145/77; PULSE 103; RESP 20; O2SAT 96
--- NOTE | 2022-08-22 07:49 | W.ANESPRE ---
General Info Date of Service Date Performed: 08/22/22 Height: 5 ft 6 in Weight: 67.5 kg Body Mass Index (BMI): 24.0 Surgical Procedure: Operation Date: 08/22/22 08:35 Proposed Procedure Side Surgeon p Colonoscopy Deon Salcedo MD Meds Allergies and Home Medications Allergies Allergy/AdvReac Type Severity Reaction Status Date / Time No Known Allergies Allergy Unverified 08/22/22 07:40 Home Medication Medication Instructions Recorded lisinopril 10 mg tablet 10 mg PO DAILY 01/13/20 simvastatin 20 mg tablet 20 mg PO DAILY 01/30/20 cholecalciferol (vitamin D3) 25 25 mcg PO DAILY 09/30/21 mcg (1,000 unit) capsule bisacodyl 5 mg tablet,delayed 5 mg PO ONCE #4 tabs 08/11/22 release (Dulcolax (bisacodyl)) polyethylene glycol 3350 17 238 g PO ONCE colonoscopy prep 08/17/22 gram/dose oral powder #238 grams Current Visit Medications: Current Medications Generic Name Dose Route Start Last Admin Trade Name Kandi PRN Reason Stop Dose Admin Ringer's Solution 1,000 mls @ 80 mls/hr 08/22/22 06:00 IV 08/22/22 23:59 INFUSION YUNIER IV Miscellaneous Supplies 1 each 08/22/22 06:00 Iv Access IV 08/22/22 23:59 DIRECTED YUNIER Sodium Chloride 0 ml 08/22/22 06:00 Normal Saline Flush 10 Ml Syr IV 08/22/22 23:59 PRN PRN Sodium Chloride 0 ml 08/22/22 06:00 Normal Saline 10 Ml Vial IJ 08/22/22 23:59 DIRECTED PRN Sterile Water 0 ml 08/22/22 06:00 Water,Injection,Sterile 10 Ml Vial IJ 08/22/22 23:59 DIRECTED PRN PFSH Active Problems Active Problems: Problem Status Onset Code Vitamin D deficiency E55.9 Lung nodule R91.1 Hyperlipidemia, unspecified E78.5 Hypercalcemia E83.52 Vision changes H53.9 Submandibular gland swelling R60.9 Tobacco use disorder F17.200 Hyperthyroidism E05.90 Hypertension I10 Nail dystrophy L60.3 Heart murmur, systolic R01.1 Right bundle branch block I45.10 Screening for colon cancer Z12.11 Medical History Medical History Current smoker Hypercalcemia Hyperlipidemia Left inguinal hernia Onychomycosis Thyroid mass Thyroid nodule Venous stasis dermatitis Venous stasis ulcer limited to breakdown of skin with varicose veins Vision changes Surgical History Surgical History H/O vein stripping RLE History of colonoscopy (~01/2011) History of umbilical hernia repair S/P left inguinal hernia repair (~03/25/20) S/P right inguinal hernia repair Tobacco Smoking/Tobacco Use Status: Current every day Tobacco Type: cigarettes Smoking cigarettes per day: 5 Years smoked: 53 Alcohol Alcohol Intake: never Substance Use Substance use: Never Substance use type: does not use Vital Signs and Lab Results Vital Signs Most Recent Vital Signs in EMR: Most Recent Vital Signs Temp Pulse Resp BP Pulse Ox 36.5 C 103 H 20 145/77 H 96 08/22/22 07:15 08/22/22 07:40 08/22/22 07:40 08/22/22 07:40 08/22/22 07:40 Lab Results Blood Type / Crossmatch: No Data to Display Complete Blood Count: No Data to Display Complete Metabolic Panel: No Data to Display Liver Function Panel: No Data to Display Coagulation Panel: No Data to Display Cardiac Panel: No Data to Display Arterial Blood Gas: No Data to Display Venous Blood Gas: No Data to Display Pancreas Panel: No Data to Display Thyroid Panel: No Data to Display Infectious Disease: No Data to Display Blood Cultures: No Data to Display Toxicology Panel: No Data to Display Imaging and Studies Imaging and Studies Study information below may be from another EMR and interpreted by another provider. Please see original notes in EMR for more complete details. Echocardiogram Summary: 2020 Conclusion Left Ventricle : The left ventricle is normal size. The left ventricular systolic function is normal. The left ventricular ejection fraction is within the normal range. There is normal left ventricular wall thickness. There is normal LV segmental wall motion. LVEF is 55%. Right Ventricle : The right ventricle is normal size. The right ventricular systolic function is normal. The RVSP is 23mmHg. Atria : Left atrium is borderline dilated. Right atrium is mildly dilated. Aortic Valve : Aortic valve is trileaflet. There is no aortic valvular stenosis. Mild aortic regurgitation. Great Vessels : The aortic root is normal in size. The ascending aorta is normal in size. Aortic arch is normal in caliber. IVC is normal in size and collapses >50% with inspiration. There is no prior study available for comparison. Anesthesia Assessment and Plan Anesthesia History Personal History: No History of Anesthesia Complications Family History: No Family History of Anesthesia Complications Exercise Tolerance Exercise Tolerance: Metabolic Equivalents>4 Pertinent Negatives Pertinent Negatives: No Symptoms of GERD Cardiac & Pulmonary Exam Cardiac Exam: Normal S1/S2 Heart Sounds Pulmonary Exam: Clear Bilateral Breath Sounds Implantable Cardiac Device Does patient have a Pacemaker or an ICD?: No Airway Exam Known Difficult Airway: No Mallampati Class: 2 Mouth Opening: Narrow (< 3cm) Thyromental Distance: Greater than 3 cm Neck Range of Motion: Full ROM Neck Circumference: Normal Teeth Condition: Edentulous ASA Classification ASA Score: ASA 2 Emergency Case?: No NPO Status NPO Status: NPO Clears >2 hours, Solids >8 hours Anesthesia Plan Resuscitation Status: Full Code Anesthesia Technique: General Anesthesia Airway Planned: Natural Airway Monitors Used: Standard Monitors
[2022-08-22] MEDS: Lactated Ringers 1,000 ML 80 ML IV (08:01)
[2022-08-22 08:30] VITALS: BMI 24.0
--- NOTE | 2022-08-22 09:30 | BOWEL_PTH ---
PATIENT: Young Kendrick LOC: [facility] U#:[id number] AGE/SX: 77/M ROOM: RE08/22/[address]: Deon Salcedo : 1945 BED: DIS: 08/22/2022 SPEC #: [id number] RECD: 08/22/22 12:36 STATUS: TEJ REQ #: [id number] MARVEL: 08/22/22 09:[address]: Deon Salcedo DEPT: Surgical Specimen RECD BY: Joanne Nelson ENTERED: 08/22/22 12:37 SP TYPE: Bowel OTHR DR: Dede Garcia Tissues: 1 - BIOPSY BOWEL 2 - BIOPSY BOWEL 3 - BIOPSY BOWEL Procedures: GROSS AND MICRO LEVEL 4 Comments: [id number]
[2022-08-22 09:50] VITALS: BP 94/64; PULSE 88; RESP 18; TEMP 36.2; O2SAT 96
[2022-08-22 10:19] VITALS: BP 114/78; PULSE 77; RESP 18; TEMP 36.2; O2SAT 97
--- NOTE | 2022-08-23 01:49 | W.ANESPOSTOP ---
Postoperative Evaluation Date, Time and Location Date Performed: 08/23/22 Time Performed: 10:19 Patient Location: Day Surgery Unit Vital Signs Most Recent Imported Vital Signs: Most Recent Vital Signs Temp Pulse Resp BP Pulse Ox 36.2 C L 77 18 114/78 97 08/22/22 10:19 08/22/22 10:19 08/22/22 10:19 08/22/22 10:19 08/22/22 10:19 Pain Score Most Recent Pain Score: Most Recent Pain Score Pain Level 0 08/22/22 10:19 Assessment Mental Status: Awake (Alert & Oriented to Patient Baseline) Airway and Respiratory Function: Patent airway with normal (patient baseline) respiratory exam Cardiovascular Function: Hemodynamically Stable Hydration Status: Adequately Hydrated Nausea & Vomiting: No Nausea or Vomiting Pain: Pt. Denies Any Pain Peripheral Nerve Block: Patient did not receive a nerve block Postoperative Comments:: discharged home without complications.
== END 2022-08-22 10:50 | disposition home or self-care (01) ==
PROVIDERS: PCP Nurse Practitioner Family; Visit Provider Surgery
PROC: 0DJD8ZZ Inspection of Lower Intestinal Tract, Via Natural or Artificial Opening Endoscopic (ICD-10-PCS; CPT 45378; principal; 2022-08-22 08:30)
DX: Z12.11 Encounter for screening for malignant neoplasm of colon (principal); K62.1 Rectal polyp; K63.5 Polyp of colon; K57.30 Diverticulosis of large intestine without perforation or abscess without bleeding; R73.03 Prediabetes; K63.89 Other specified diseases of intestine
CPT/HCPCS: 45380; 88305

== ENCOUNTER 2022-09-05 15:58 | Outpatient (REF) | payer MEDICARE, MEDICAID, SELFPAY ==
[2022-09-05 16:57] LABS: HCT 45.7 % (40.0-50.0); HGB 14.7 g/dL (13.5-17.5); MCH 30.2 pg (27.0-33.0); MCHC 32.2 % (32.0-36.0); MCV 94 fL (80-95); Platelet Count 221 10^3/uL (130-400); RBC 4.86 10^6/uL (4.36-5.78); RDW 14.6 % (11.8-14.1); RDW-SD 50.5 fL; WBC 12.33 10^3/uL (4.4-10.8)
[2022-09-05 17:11] LABS: Hemoglobin A1C 5.2 % (<5.7)
[2022-09-05 17:27] LABS: ALT 32 U/L (16-63); AST 30 U/L (15-37); Albumin 4.1 g/dL (3.4-5.0); Alkaline Phosphatase 38 U/L (46-116); Anion Gap 6.5 mmol/L (3-11); BUN 15 mg/dL (7-18); Bilirubin, Total 0.6 mg/dL (0.2-1.0); CO2 29.5 mmol/L (21.0-32.0); CREATININE 0.8 mg/dL (0.70-1.30); Calcium 9.8 mg/dL (8.5-10.1); Chloride 107 mmol/L (98-107); Estimated GFR 91.15 (mL/min/1.73m2); FREE T4 1.16 ng/dL (0.76-1.46); Glucose 92 mg/dL (74-106); Sodium 143 mmol/L (136-145); TSH 0.62 uIU/mL (0.36-3.74); Total Protein 7.3 g/dL (6.4-8.2)
== END 2022-09-05 15:59 | disposition home or self-care (01) ==
LOC: NCHCN 15:58
PROVIDERS: PCP Nurse Practitioner Family; Visit Provider Nurse Practitioner Family
DX: E07.9 Disorder of thyroid, unspecified (principal); Z01.818 Encounter for other preprocedural examination; I10 Essential (primary) hypertension; R79.89 Other specified abnormal findings of blood chemistry
CPT/HCPCS: 80053; 85027; 83036; 84439; 84443

== ENCOUNTER 2022-09-19 08:53 | Day surgery (SDC) | payer MEDICARE, MEDICAID, SELFPAY ==
[2022-09-19] MEDS: Tropicam./Phenyleph. (1/2.5%) 5 ML BTL OS ×3 (09:26→09:37)
[2022-09-19 09:27] VITALS: BP 160/90; PULSE 88; RESP 18; TEMP 37; O2SAT 98
--- NOTE | 2022-09-19 10:14 | W.ANESPRE ---
General Info Date of Service Date Performed: 09/19/22 Height: 5 ft 6 in Weight: 68.4 kg Body Mass Index (BMI): 24.3 Surgical Procedure: Operation Date: 09/19/22 11:40 Proposed Procedure Side Surgeon p Cataract Extraction with IOL Implant Left Pawan Garcia MD Meds Allergies and Home Medications Allergies Allergy/AdvReac Type Severity Reaction Status Date / Time No Known Allergies Allergy Unverified 09/19/22 09:24 Home Medication Medication Instructions Recorded lisinopril 10 mg tablet 10 mg PO DAILY 01/13/20 simvastatin 20 mg tablet 20 mg PO DAILY 01/30/20 cholecalciferol (vitamin D3) 25 25 mcg PO DAILY 09/30/21 mcg (1,000 unit) capsule Current Visit Medications: Current Medications Generic Name Dose Route Start Last Admin Trade Name Freq PRN Reason Stop Dose Admin Acetaminophen 1,000 mg 09/19/22 06:00 Acetaminophen 500 Mg Tab PO Q4H PRN PRN Miscellaneous Medication 0 ml 09/19/22 06:00 09/19/22 09:37 Tropicam./Phenyleph. (1/2.5%) 5 Ml Btl OS 1 drp DIRECTED YUNIER Administration Miscellaneous Medication 0 ml 09/19/22 06:00 Prednisolone 1%, Moxifloxacin 0.5%, Nepafenac 0.1% 5ml Btl OS DIRECTED YUNIER Tetracaine HCl 0 ml 09/19/22 06:00 Tetracaine 0.5% 4 Ml Btl OS DIRECTED YUNIER PFSH Active Problems Active Problems: Problem Status Onset Code Cortical cataract of left eye H26.9 Nuclear sclerotic cataract of left eye H25.12 Vitamin D deficiency E55.9 Lung nodule R91.1 Hyperlipidemia, unspecified E78.5 Hypercalcemia E83.52 Vision changes H53.9 Submandibular gland swelling R60.9 Tobacco use disorder F17.200 Hyperthyroidism E05.90 Hypertension I10 Nail dystrophy L60.3 Heart murmur, systolic R01.1 Right bundle branch block I45.10 Screening for colon cancer Z12.11 Medical History Medical History Current smoker Hypercalcemia Hyperlipidemia Left inguinal hernia Onychomycosis Thyroid mass Thyroid nodule Venous stasis dermatitis Venous stasis ulcer limited to breakdown of skin with varicose veins Vision changes Surgical History Surgical History H/O vein stripping RLE History of colonoscopy (~01/2011) History of umbilical hernia repair S/P left inguinal hernia repair (~03/25/20) S/P right inguinal hernia repair Tobacco Smoking/Tobacco Use Status: Current every day Tobacco Type: cigarettes Smoking cigarettes per day: 5 Years smoked: 53 Alcohol Alcohol Intake: never Substance Use Substance use: Never Substance use type: does not use Vital Signs and Lab Results Vital Signs Most Recent Vital Signs in EMR: Most Recent Vital Signs Temp Pulse Resp BP Pulse Ox 37 C 88 18 160/90 H 98 09/19/22 09:27 09/19/22 09:27 09/19/22 09:27 09/19/22 09:27 09/19/22 09:27 Lab Results Blood Type / Crossmatch: No Data to Display Complete Blood Count: White Blood Count 12.33 10^3/uL (4.4-10.8) H 09/05/22 10:00 Red Blood Count 4.86 10^6/uL (4.36-5.78) 09/05/22 10:00 Hemoglobin 14.7 g/dL (13.5-17.5) 09/05/22 10:00 Hematocrit 45.7 % (40.0-50.0) 09/05/22 10:00 Platelet Count 221 10^3/uL (130-400) 09/05/22 10:00 Complete Metabolic Panel: Sodium 143 mmol/L (136-145) 09/05/22 10:00 Potassium 4.0 mmol/L (3.5-5.1) 09/05/22 10:00 Chloride 107 mmol/L (98-107) 09/05/22 10:00 Carbon Dioxide 29.5 mmol/L (21.0-32.0) 09/05/22 10:00 BUN 15 mg/dL (7-18) 09/05/22 10:00 Creatinine 0.8 mg/dL (0.70-1.30) 09/05/22 10:00 Est GFR (CKD-EPI 2020) 91.15 (mL/min/1.73m2) 09/05/22 10:00 Calcium 9.8 mg/dL (8.5-10.1) 09/05/22 10:00 Albumin 4.1 g/dL (3.4-5.0) 09/05/22 10:00 Glucose 92 mg/dL (74-106) 09/05/22 10:00 Hemoglobin A1c 5.2 % (<5.7) 09/05/22 10:00 Liver Function Panel: Alanine Aminotransferase (ALT/SGPT) 32 U/L (16-63) 09/05/22 10:00 Aspartate Amino Transf (AST/SGOT) 30 U/L (15-37) 09/05/22 10:00 Coagulation Panel: No Data to Display Cardiac Panel: No Data to Display Arterial Blood Gas: No Data to Display Venous Blood Gas: No Data to Display Pancreas Panel: No Data to Display Thyroid Panel: Thyroid Stimulating Hormone (TSH) 0.62 uIU/mL (0.36-3.74) 09/05/22 10:00 Infectious Disease: No Data to Display Blood Cultures: No Data to Display Toxicology Panel: No Data to Display Imaging and Studies Imaging and Studies Study information below may be from another EMR and interpreted by another provider. Please see original notes in EMR for more complete details. Echocardiogram Summary: 2020 Conclusion Left Ventricle : The left ventricle is normal size. The left ventricular systolic function is normal. The left ventricular ejection fraction is within the normal range. There is normal left ventricular wall thickness. There is normal LV segmental wall motion. LVEF is 55%. Right Ventricle : The right ventricle is normal size. The right ventricular systolic function is normal. The RVSP is 23mmHg. Atria : Left atrium is borderline dilated. Right atrium is mildly dilated. Aortic Valve : Aortic valve is trileaflet. There is no aortic valvular stenosis. Mild aortic regurgitation. Great Vessels : The aortic root is normal in size. The ascending aorta is normal in size. Aortic arch is normal in caliber. IVC is normal in size and collapses >50% with inspiration. There is no prior study available for comparison. Anesthesia Assessment and Plan Anesthesia History Personal History: No History of Anesthesia Complications Family History: No Family History of Anesthesia Complications Exercise Tolerance Exercise Tolerance: Metabolic Equivalents>4 Pertinent Negatives Pertinent Negatives: No Symptoms of GERD and No History of CVA/TIA Cardiac & Pulmonary Exam Cardiac Exam: Normal S1/S2 Heart Sounds Pulmonary Exam: Clear Bilateral Breath Sounds Implantable Cardiac Device Does patient have a Pacemaker or an ICD?: No Airway Exam Known Difficult Airway: No Mallampati Class: 2 Mouth Opening: Narrow (< 3cm) Thyromental Distance: Greater than 3 cm Neck Range of Motion: Full ROM Neck Circumference: Normal Teeth Condition: Edentulous ASA Classification ASA Score: ASA 3 Emergency Case?: No NPO Status NPO Status: NPO Clears >2 hours, Solids >8 hours Anesthesia Plan Resuscitation Status: Full Code Anesthesia Technique: MAC Anesthesia Airway Planned: Natural Airway Monitors Used: Standard Monitors
[2022-09-19 10:37] VITALS: BMI 24.3
[2022-09-19] MEDS: Tetracaine 0.5% 4 ML BTL OS (10:52)
[2022-09-19] MEDS: Duovisc Viscoelastic System EACH 1 EACH (10:53)
[2022-09-19] MEDS: Balanced Salt Soln.-PLUS 500 ML BAG (10:53)
[2022-09-19] MEDS: Lidocaine 1% Pres-Free 5 ML VIAL (10:53)
[2022-09-19] MEDS: Lidocaine 2% Jelly 6 ML SYR (10:54)
[2022-09-19] MEDS: Povidone-Iodine Ophth 30 ML BTL (10:55)
[2022-09-19 11:07] VITALS: BP 133/77; PULSE 82; RESP 16; TEMP 36.6; O2SAT 96
--- NOTE | 2022-09-19 11:10 | W.PM.DSUDISC ---
Date of service: 09/19/22 Time of Service: 11:11 Discharge Plan Disposition Patient Disposition: Home Discharge Details Attending Provider: Pawan Garcia Primary Care Provider: Dede Garcia Home Meds and New Rx's Prescriptions: No Action lisinopril 10 mg tablet 10 mg PO DAILY simvastatin 20 mg tablet 20 mg PO DAILY cholecalciferol (vitamin D3) 25 mcg (1,000 unit) capsule 25 mcg PO DAILY Discharge Instructions Stand Alone Forms: Post-op Topical Cataract, Jeanette Andres (DSU) Discharge Orders Discharge Orders: Discharge Order (Routine); Ordered 09/19/22 Ordered By: Pawan Garcia DS: Diagnosis Discharge Diagnosis (1) Cortical cataract of left eye: Status: Resolved (2) Nuclear sclerotic cataract of left eye: Status: Resolved
--- NOTE | 2022-09-19 11:11 | W.PM.OP ---
Date of service: 09/19/22 Time of Service: 11:11 Operative Note Operative Note DATE OF PROCEDURE: 09/19/22 PRE-OP DIAGNOSIS: Nuclear/cortical cataract, left eye POST-OP DIAGNOSIS: same PROCEDURE: Cataract extraction using phacoemulsification with intraocular lens implant, left eye SURGEON: Pawan Garcia ANESTHESIA TYPE: Local By Surgeon and MAC Refer to Anesthesia Record PATHOLOGY: none sent COMPLICATIONS: None Patient was transported to: same day Patient's condition: stable Implants: Kanu and Kanu Tecnis Eyhance [id number] Indications: Progressive decreased vision due to cataract, left eye Procedure Description: CATARACT SURGERY OPERATIVE REPORT PREOPERATIVE DIAGNOSIS: 1. Nuclear/cortical cataract, left eye POSTOPERATIVE DIAGNOSIS: Same OPERATION: 1. Cataract extraction using phacoemulsification with posterior chamber intraocular lens implant, left eye. IOL: IOL Civil Structural Designer/Model: Kanu & Kanu Tecnis Eyhance DIB00 IOL Power: + 26.0 diopters IOL Serial Number: [id number] Optic Diameter: 6.0 mm Haptic/Overall Diameter: 13.0 mm PHACO INFO: [employer]sts Vision System with OZil and Active Fluidics Cumulative Dispersed Energy (CDE): 11.27 seconds SURGEON: Pawan Garcia MD, [place] ANESTHESIA: Monitored A [facility] (MAC), with local sub-tenon's anesthetic infiltration COMPLICATIONS: None SPECIMENS: None INDICATIONS FOR PROCEDURE: The patient is a 77-year-old male with history of diminished visual acuity in his left eye secondary to the development of significant nuclear/cortical cataract. He is significantly symptomatic that he desires cataract surgery and attempt to improve and maximize his vision. The option of cataract surgery was offered to the patient and he wished to proceed. PROCEDURE: The correct surgical eye was identified and marked as the left eye and the pupil was dilated in the preoperative area using mydriatics and cycloplegics. The dilated pupil size was 7.0 mm. Oral sedation was administered in the form of an Imprimis MKO Melt (midazolam 3mg/ketamine 25mg/ondansetron 2mg). The patient was brought to the operating room where cardiopulmonary monitoring was instituted and surgical time-out was performed, confirming the correct operative eye and IOL power. Topical anesthesia was administered and ophthalmic povidone-iodine 5% was instilled into the conjunctival fornices. Lidocaine gel was applied to the cornea and the paula-ocular area was prepped with Betadine 10% solution and draped in the usual sterile fashion for intraocular surgery, including an aperture drape. A Tegaderm transparent film dressing was cut in half and used to cover the lashes and lid margins. Care was taken to sequester the lashes and lid margins under the Tegaderm dressing. A lid speculum was placed between the lids of the operative eye and the Triston LuxOR Revalia operating microscope was maneuvered into position. Moni scissors were then used to make a conjunctival buttonhole approximately 6mm posterior to the limbus in the inferonasal quadrant. Blunt dissection was carried out to expose bare sclera, and a blunt-tipped sub-tenon?s anesthesia cannula was introduced and passed posteriorly along the globe where non-preserved plain lidocaine was injected into posterior sub-Tenon?s space. A sideport knife was used to make a paracentesis port superiorly/superiortemporally. Intraocular phenylephrine/lidocaine was injected int the anterior chamber.. The anterior chamber was filled with viscoelastic. A keratome knife was used to construct a 2-plane near-clear corneal tunnel extending 2.0mm into clear cornea temporally. A flap was raised on the anterior capsule and capsulorhexis forceps were used to complete a continuous curvilinear capsulorhexis of 5.0 mm. Balanced salt solution was then used to perform cortical cleaving hydrodissection and nuclear hydrodelineation until the lens could be freely rotated within the capsular bag. The lens nucleus was then disassembled and removed within the capsular bag and iris plane using phacoemulsification. Residual cortical material was removed using the 45-degree angled silicone I/A tip with 0.3mm port. The posterior capsule was carefully polished to remove as much residual lens epithelial cells as safely possible. The capsular bag was then inflated and the anterior chamber deepened with viscoelastic. The lens implant described above was inserted into the capsular bag using the Kanu and Kanu Simplicity pre-loaded injector. . A Kuglen hook was used to dial the IOL into position. Residual viscoelastic was then removed first from posterior to the IOL, then from the anterior chamber using the I/A handpiece. The lens implant was noted to center nicely within the capsular bag. The incisions were stromally hydrated, and the anterior chamber was reformed using BSS. Then 0.5cc of moxifloxacin 1.0mg/ml were injected into the capsular bag and anterior chamber. The incisions were checked with a Weck spear and found to be secure. Several drops of ophthalmic povidone-iodine 5% were then applied to the eye followed by two drops of Imprimis combination prednisolone/moxifloxacin/nepafenac solution. The drapes were removed and a clear plastic protective eye shield was placed over the eye. The patient was then returned to Same Day Surgery in stable condition.
--- NOTE | 2022-09-19 11:21 | W.ANESPOSTOP ---
Postoperative Evaluation Date, Time and Location Date Performed: 09/19/22 Time Performed: 11:21 Patient Location: Day Surgery Unit Vital Signs Most Recent Imported Vital Signs: Most Recent Vital Signs Temp Pulse Resp BP Pulse Ox 36.6 C 82 16 133/77 96 09/19/22 11:07 09/19/22 11:07 09/19/22 11:07 09/19/22 11:07 09/19/22 11:07 Pain Score Most Recent Pain Score: Most Recent Pain Score Pain Level 0 09/19/22 11:07 Assessment Mental Status: Awake (Alert & Oriented to Patient Baseline) Airway and Respiratory Function: Patent airway with normal (patient baseline) respiratory exam Cardiovascular Function: Hemodynamically Stable Hydration Status: Adequately Hydrated Nausea & Vomiting: No Nausea or Vomiting Pain: Pt. Denies Any Pain Peripheral Nerve Block: Patient did not receive a nerve block
[2022-09-19 11:32] VITALS: BP 128/69; PULSE 75; RESP 16; TEMP 36.8; O2SAT 95
== END 2022-09-19 11:40 | disposition home or self-care (01) ==
LOC: SUR 08:53
PROVIDERS: PCP Nurse Practitioner Family; Visit Provider Ophthalmology
PROC: (CPT 66984; principal; 2022-09-19 11:30)
DX: H25.12 Age-related nuclear cataract, left eye (principal)
CPT/HCPCS: 66984; V2632

== ENCOUNTER 2022-10-03 08:52 | Day surgery (SDC) | payer MEDICARE, MEDICAID, SELFPAY ==
--- NOTE | 2022-10-03 06:35 | W.ANESPRE ---
General Info Date of Service Date Performed: 10/03/22 Height: 5 ft 6 in Weight: 68.4 kg Body Mass Index (BMI): 24.3 Surgical Procedure: Operation Date: 10/03/22 11:40 Proposed Procedure Side Surgeon p Cataract Extraction with IOL Implant Right Pawan Garcia MD Meds Allergies and Home Medications Allergies Allergy/AdvReac Type Severity Reaction Status Date / Time No Known Allergies Allergy Unverified 10/03/22 09:11 Home Medication Medication Instructions Recorded lisinopril 10 mg tablet 10 mg PO DAILY 01/13/20 simvastatin 20 mg tablet 20 mg PO DAILY 01/30/20 cholecalciferol (vitamin D3) 25 25 mcg PO DAILY 09/30/21 mcg (1,000 unit) capsule Current Visit Medications: Current Medications Generic Name Dose Route Start Last Admin Trade Name Freq PRN Reason Stop Dose Admin Acetaminophen 1,000 mg 10/03/22 06:00 Acetaminophen 500 Mg Tab PO Q4H PRN PRN Miscellaneous Medication 0 ml 10/03/22 06:00 Tropicam./Phenyleph. (1/2.5%) 5 Ml Btl OD DIRECTED [facility] Miscellaneous Medication 0 ml 10/03/22 06:00 Prednisolone 1%, Moxifloxacin 0.5%, Nepafenac 0.1% 5ml Btl OD DIRECTED [facility] Tetracaine HCl 0 ml 10/03/22 06:00 Tetracaine 0.5% 4 Ml Btl OD DIRECTED [facility] PFSH Active Problems Active Problems: Problem Status Onset Code Cortical cataract of right eye H26.9 Nuclear age-related cataract, right eye H25.11 Cortical cataract of left eye H26.9 Nuclear sclerotic cataract of left eye H25.12 Vitamin D deficiency E55.9 Lung nodule R91.1 Hyperlipidemia, unspecified E78.5 Hypercalcemia E83.52 Vision changes H53.9 Submandibular gland swelling R60.9 Tobacco use disorder F17.200 Hyperthyroidism E05.90 Hypertension I10 Nail dystrophy L60.3 Heart murmur, systolic R01.1 Right bundle branch block I45.10 Screening for colon cancer Z12.11 Medical History Medical History Current smoker Hypercalcemia Hyperlipidemia Left inguinal hernia Onychomycosis Thyroid mass Thyroid nodule Venous stasis dermatitis Venous stasis ulcer limited to breakdown of skin with varicose veins Vision changes Surgical History Surgical History (Updated 10/03/22 @ 09:11 by Nidia Cordero) H/O vein stripping RLE History of colonoscopy (~01/2011) History of umbilical hernia repair Hx of cataract removal with insertion of prosthetic lens S/P left inguinal hernia repair (~03/25/20) S/P right inguinal hernia repair Tobacco Smoking/Tobacco Use Status: Current every day Tobacco Type: cigarettes Smoking cigarettes per day: 5 Years smoked: 53 Alcohol Alcohol Intake: never Substance Use Substance use: Never Substance use type: does not use Vital Signs and Lab Results Vital Signs Most Recent Vital Signs in EMR: Temp Pulse Resp BP Pulse Ox 36.6 C 95 H 20 158/81 H 97 10/03/22 09:00 10/03/22 09:00 10/03/22 09:00 10/03/22 09:00 10/03/22 09:00 Lab Results Blood Type / Crossmatch: No Data to Display Complete Blood Count: White Blood Count 12.33 10^3/uL (4.4-10.8) H 09/05/22 10:00 Red Blood Count 4.86 10^6/uL (4.36-5.78) 09/05/22 10:00 Hemoglobin 14.7 g/dL (13.5-17.5) 09/05/22 10:00 Hematocrit 45.7 % (40.0-50.0) 09/05/22 10:00 Platelet Count 221 10^3/uL (130-400) 09/05/22 10:00 Complete Metabolic Panel: Sodium 143 mmol/L (136-145) 09/05/22 10:00 Potassium 4.0 mmol/L (3.5-5.1) 09/05/22 10:00 Chloride 107 mmol/L (98-107) 09/05/22 10:00 Carbon Dioxide 29.5 mmol/L (21.0-32.0) 09/05/22 10:00 BUN 15 mg/dL (7-18) 09/05/22 10:00 Creatinine 0.8 mg/dL (0.70-1.30) 09/05/22 10:00 Est GFR (CKD-EPI 2020) 91.15 (mL/min/1.73m2) 09/05/22 10:00 Calcium 9.8 mg/dL (8.5-10.1) 09/05/22 10:00 Albumin 4.1 g/dL (3.4-5.0) 09/05/22 10:00 Glucose 92 mg/dL (74-106) 09/05/22 10:00 Hemoglobin A1c 5.2 % (<5.7) 09/05/22 10:00 Liver Function Panel: Alanine Aminotransferase (ALT/SGPT) 32 U/L (16-63) 09/05/22 10:00 Aspartate Amino Transf (AST/SGOT) 30 U/L (15-37) 09/05/22 10:00 Coagulation Panel: No Data to Display Cardiac Panel: No Data to Display Arterial Blood Gas: No Data to Display Venous Blood Gas: No Data to Display Pancreas Panel: No Data to Display Thyroid Panel: Thyroid Stimulating Hormone (TSH) 0.62 uIU/mL (0.36-3.74) 09/05/22 10:00 Infectious Disease: No Data to Display Blood Cultures: No Data to Display Toxicology Panel: No Data to Display Imaging and Studies Imaging and Studies Study information below may be from another EMR and interpreted by another provider. Please see original notes in EMR for more complete details. Echocardiogram Summary: 2020 Conclusion Left Ventricle : The left ventricle is normal size. The left ventricular systolic function is normal. The left ventricular ejection fraction is within the normal range. There is normal left ventricular wall thickness. There is normal LV segmental wall motion. LVEF is 55%. Right Ventricle : The right ventricle is normal size. The right ventricular systolic function is normal. The RVSP is 23mmHg. Atria : Left atrium is borderline dilated. Right atrium is mildly dilated. Aortic Valve : Aortic valve is trileaflet. There is no aortic valvular stenosis. Mild aortic regurgitation. Great Vessels : The aortic root is normal in size. The ascending aorta is normal in size. Aortic arch is normal in caliber. IVC is normal in size and collapses >50% with inspiration. There is no prior study available for comparison. Anesthesia Assessment and Plan Anesthesia History Personal History: No History of Anesthesia Complications Family History: No Family History of Anesthesia Complications Exercise Tolerance Exercise Tolerance: Metabolic Equivalents>4 Cardiac & Pulmonary Exam Cardiac Exam: Normal S1/S2 Heart Sounds Pulmonary Exam: Clear Bilateral Breath Sounds Implantable Cardiac Device Does patient have a Pacemaker or an ICD?: No Airway Exam Known Difficult Airway: No Mallampati Class: 2 Mouth Opening: Narrow (< 3cm) Thyromental Distance: Greater than 3 cm Neck Range of Motion: Full ROM Neck Circumference: Normal Teeth Condition: Edentulous ASA Classification ASA Score: ASA 2 Emergency Case?: No NPO Status NPO Status: NPO Clears >2 hours, Solids >8 hours Anesthesia Plan Resuscitation Status: Full Code Anesthesia Technique: MAC Anesthesia Airway Planned: Natural Airway Monitors Used: Standard Monitors Preoperative Comments:: repeat cataract. denies health history change. Had MKO. Would like MKO this time also.
[2022-10-03 09:00] VITALS: BP 158/81; PULSE 95; RESP 20; TEMP 36.6; O2SAT 97
[2022-10-03] MEDS: Tropicam./Phenyleph. (1/2.5%) 5 ML BTL OD ×3 (09:13→09:30)
[2022-10-03 09:27] VITALS: BMI 24.3
[2022-10-03] MEDS: Tetracaine 0.5% 4 ML BTL OD (10:36)
[2022-10-03] MEDS: Lidocaine 1% Pres-Free 5 ML VIAL (10:37)
[2022-10-03] MEDS: Balanced Salt Soln.-PLUS 500 ML BAG (10:38)
[2022-10-03] MEDS: Povidone-Iodine Ophth 30 ML BTL (10:39)
[2022-10-03] MEDS: Phenylephrine/Lidocaine (15/10) MG/ML 1 ML VIAL (10:39)
[2022-10-03] MEDS: Duovisc Viscoelastic System EACH 1 EACH (10:39)
[2022-10-03] MEDS: Lidocaine 2% Jelly 6 ML SYR (10:40)
--- NOTE | 2022-10-03 10:53 | W.PM.DSUDISC ---
Date of service: 10/03/22 Time of Service: 10:53 Discharge Plan Disposition Patient Disposition: Home Discharge Details Attending Provider: Pawan Garcia Primary Care Provider: Dede Garcia Home Meds and New Rx's Prescriptions: No Action lisinopril 10 mg tablet 10 mg PO DAILY simvastatin 20 mg tablet 20 mg PO DAILY cholecalciferol (vitamin D3) 25 mcg (1,000 unit) capsule 25 mcg PO DAILY Discharge Instructions Stand Alone Forms: Post-op Topical Cataract, Jeanette Andres (DSU) Discharge Orders Discharge Orders: Discharge Order (Routine); Ordered 10/03/22 Ordered By: Pawan Garcia DS: Diagnosis Discharge Diagnosis (1) Cortical cataract of right eye: Status: Resolved (2) Nuclear age-related cataract, right eye: Status: Resolved
[2022-10-03 10:54] VITALS: BP 140/74; PULSE 77; RESP 18; TEMP 36.3; O2SAT 96
--- NOTE | 2022-10-03 10:54 | W.PM.OP ---
Date of service: 10/03/22 Time of Service: 10:54 Operative Note Operative Note DATE OF PROCEDURE: 10/03/22 PRE-OP DIAGNOSIS: Nuclear/cortical cataract, right eye POST-OP DIAGNOSIS: same PROCEDURE: Cataract extraction using phacoemulsification with intraocular lens implant, right eye SURGEON: Pawan Garcia ANESTHESIA TYPE: Local By Surgeon and MAC Refer to Anesthesia Record ESTIMATED BLOOD LOSS: 0 PATHOLOGY: none sent COMPLICATIONS: None Patient was transported to: same day Patient's condition: stable Implants: Kanu & Kanu Tecnis Eyhance DIB00 Indications: Progressive visual loss due to cataract, right eye Procedure Description: CATARACT SURGERY OPERATIVE REPORT PREOPERATIVE DIAGNOSIS: 1. Nuclear/cortical cataract, right eye POSTOPERATIVE DIAGNOSIS: Same OPERATION: 1. Cataract extraction using phacoemulsification with posterior chamber intraocular lens implant, right eye. IOL: IOL Dimension Warehouse Supervisor/Model: Kanu & Kanu Tecnis Eyhance DIB00 IOL Power: + 26.0 diopters IOL Serial Number: [id number] Optic Diameter: 6.0mm Haptic/Overall Diameter: 13.0mm PHACO INFO: TristonFieldS[employer]urion Vision System with OZil and Active Fluidics Cumulative Dispersed Energy (CDE): 13.61 seconds SURGEON: Pawan Garcia MD, [place] ANESTHESIA: Monitored Anesthesia Care (MAC), with local sub-tenon's anesthetic infiltration COMPLICATIONS: None SPECIMENS: None INDICATIONS FOR PROCEDURE: The patient is a 77-year-old gentleman with history of diminished visual acuity in both eyes secondary to the PROCEDURE: The correct surgical eye was identified and marked as the right eye and the pupil was dilated in the preoperative area using mydriatics and cycloplegics. The dilated pupil size was 6.5 mm. Oral sedation was administered in the form of one half of an Imprimis MKO Melt (midazolam 3mg/ketamine 25mg/ondansetron 2mg). The patient was brought to the operating room where cardiopulmonary monitoring was instituted and surgical time-out was performed, confirming the correct operative eye and IOL power. Topical anesthesia was administered and ophthalmic povidone-iodine 5% was instilled into the conjunctival fornices. Lidocaine gel was applied to the cornea and the paula-ocular area was prepped with Betadine 10% solution and draped in the usual sterile fashion for intraocular surgery, including an aperture drape. A Tegaderm transparent film dressing was cut in half and used to cover the lashes and lid margins. Care was taken to sequester the lashes and lid margins under the Tegaderm dressing. A lid speculum was placed between the lids of the operative eye and the Triston LuxOR Revalia operating microscope was maneuvered into position. Moni scissors were then used to make a conjunctival buttonhole approximately 6mm posterior to the limbus in the inferonasal quadrant. Blunt dissection was carried out to expose bare sclera, and a blunt-tipped sub-tenon?s anesthesia cannula was introduced and passed posteriorly along the globe where non-preserved plain lidocaine was injected into posterior sub-Tenon?s space. A sideport knife was used to make a paracentesis port inferotemporally. Intraocular phenylephrine/lidocaine was injected into the anterior chamber. The anterior chamber was filled with viscoelastic. A keratome knife was used to construct a 2-plane near-clear corneal tunnel extending 2.0mm into clear cornea superiortemporally. A flap was raised on the anterior capsule and capsulorhexis forceps were used to complete a continuous curvilinear capsulorhexis of 5.0 mm. Balanced salt solution was then used to perform cortical cleaving hydrodissection and nuclear hydrodelineation until the lens could be freely rotated within the capsular bag. The lens nucleus was then disassembled and removed within the capsular bag and iris plane using phacoemulsification. Residual cortical material was removed using the I/A handpiece. The posterior capsule was carefully polished to remove as much residual lens epithelial cells as safely possible. The capsular bag was then inflated and the anterior chamber deepened with viscoelastic. The lens implant described above was inserted into the capsular bag using the Kanu and Bravo Simplicity pre-loaded injector. A Kuglen hook was used to dial the IOL into position. Residual viscoelastic was then removed first from posterior to the IOL, then from the anterior chamber using the I/A handpiece. The lens implant was noted to center nicely within the capsular bag. The incisions were stromally hydrated, and the anterior chamber was reformed using BSS. Then 0.5cc of moxifloxacin 1.0mg/ml were injected into the capsular bag and anterior chamber. The incisions were checked with a Weck spear and found to be secure. Several drops of ophthalmic povidone-iodine 5% were then applied to the eye followed by two drops of Imprimis combination prednisolone/moxifloxacin/nepafenac solution. The drapes were removed and a clear plastic protective eye shield was placed over the eye. The patient was then returned to Same Day Surgery in stable condition.
--- NOTE | 2022-10-03 11:07 | W.ANESPOSTOP ---
Postoperative Evaluation Date, Time and Location Date Performed: 10/03/22 Time Performed: 10:52 Patient Location: Day Surgery Unit Vital Signs Most Recent Imported Vital Signs: Most Recent Vital Signs Temp Pulse Resp BP Pulse Ox 36.3 C L 77 18 140/74 96 10/03/22 10:54 10/03/22 10:54 10/03/22 10:54 10/03/22 10:54 10/03/22 10:54 Pain Score Most Recent Pain Score: Most Recent Pain Score Pain Level 0 10/03/22 10:54 Assessment Mental Status: Awake (Alert & Oriented to Patient Baseline) Airway and Respiratory Function: Patent airway with normal (patient baseline) respiratory exam Cardiovascular Function: Hemodynamically Stable Hydration Status: Adequately Hydrated Nausea & Vomiting: No Nausea or Vomiting Pain: Pt. Denies Any Pain Peripheral Nerve Block: Patient did not receive a nerve block
[2022-10-03 11:30] VITALS: BP 136/75; PULSE 84; RESP 16; TEMP 36.4; O2SAT 95
== END 2022-10-03 11:35 | disposition home or self-care (01) ==
LOC: SUR 08:52
PROVIDERS: PCP Nurse Practitioner Family; Visit Provider Ophthalmology
PROC: (CPT 66984; principal; 2022-10-03 11:30)
DX: H25.11 Age-related nuclear cataract, right eye (principal)
CPT/HCPCS: 66984; V2632

== ENCOUNTER 2022-10-24 13:19 | Outpatient (CLI) | payer MEDICARE, MEDICAID, SELFPAY ==
--- NOTE | 2022-10-24 | DI.US_ITS ---
Exam(s) US LOWER EXTREMITY VENOUS LT EXAM: US LOWER EXTREMITY VENOUS LT CLINICAL HISTORY: LEFT LEG SWELLING R22.42 R/O DVT TECHNIQUE: Grayscale, color, and doppler imaging of the deep venous system of the left lower extremi ty was performed. COMPARISON: None FINDINGS: There is no evidence of intraluminal thrombus and there is normal compression and augmentation demons trated within the common femoral vein, femoral vein, and popliteal vein. In the ipsilateral calf the interrogated veins also exhibit normal compression/ augmentation properti es. The ipsilateral saphenofemoral junction is patent. IMPRESSION: 1. No evidence of DVT in the left lower extremity. DATA REPOSITORY:
== END 2022-10-24 13:39 ==
LOC: DI 13:20
PROVIDERS: PCP Nurse Practitioner Family; Visit Provider Nurse Practitioner Family
DX: R22.42 Localized swelling, mass and lump, left lower limb (principal); M79.662 Pain in left lower leg
CPT/HCPCS: 93971

== ENCOUNTER → 2022-11-10 12:53 | Outpatient (BNVA) | payer MEDICARE, MEDICAID, SELFPAY | PROVIDERS: PCP Nurse Practitioner Family; Referring Provider Nurse Practitioner Family; Visit Provider Physical Therapy Assistant | DX: M79.89 Other specified soft tissue disorders (principal) | CPT/HCPCS: 93922 ==

== ENCOUNTER 2023-03-20 12:28 | Outpatient (REF) | payer MEDICARE, MEDICAID, SELFPAY | END 2023-03-20 12:29 | disposition home or self-care (01) | LOC: NCHCN 12:28 | PROVIDERS: PCP Nurse Practitioner Family; Visit Provider Nurse Practitioner Family | DX: L97.521 Non-pressure chronic ulcer of other part of left foot limited to breakdown of skin (principal); E03.9 Hypothyroidism, unspecified; E78.5 Hyperlipidemia, unspecified; I83.025 Varicose veins of left lower extremity with ulcer other part of foot | CPT/HCPCS: 87077; 87070; 87205 ==

== ENCOUNTER → 2023-04-25 02:56 | Outpatient (CLI) | payer MEDICARE, MEDICAID, SELFPAY ==
--- NOTE | 2023-04-25 12:15 | DI.US_ITS ---
Exam(s) US THYROID EXAM: US THYROID CLINICAL HISTORY: NONTOXIC SINGLE THYROID NODULE, E04.1. TECHNIQUE: Ultrasound thyroid performed using standard protocol. COMPARISON: US US THYROID from 03/01/2022 FINDINGS: ISTHMUS: 2.3 mm RIGHT LOBE: Size: 4.9 x 1.5 x 1.8 cm Echogenicity: Normal. Vascularity: Normal. Nodules: No suspicious nodules are seen. LEFT LOBE: Size: 5 x 2.1 x 2.6 cm Echogenicity: Normal. Vascularity: Normal. Nodules: There is a mixed 2.9 x 1.9 x 2.0 cm hypoechoic nodule again seen in the left lobe. This com pares to 3.1 x 2 x 2 cm on the prior examination. This remains a TI rads level 3 nodule. OTHER FINDINGS: None. IMPRESSION: Stable left thyroid nodule. DATA REPOSITORY:
== END ==
PROVIDERS: PCP Nurse Practitioner Family; Visit Provider Internal Medicine Endocrinology, Diabetes & Metabolism
DX: E04.1 Nontoxic single thyroid nodule (principal)
CPT/HCPCS: 76536

== ENCOUNTER 2023-07-18 10:46 | Outpatient (REF) | payer MEDICARE, MEDICAID, SELFPAY ==
[2023-07-18 17:01] LABS: ALT 23 U/L (16-63); AST 18 U/L (15-37); HDL Cholesterol 39 mg/dL (40-60); LDL CHOLESTEROL 94 mg/dL (<100); TSH 0.29 uIU/mL (0.36-3.74)
[2023-07-18 17:19] LABS: Creatine Kinase 70 U/L (39-308); NT-proBNP 62 pg/mL (<300)
== END 2023-07-18 10:47 | disposition home or self-care (01) ==
LOC: NCHCN 10:46
PROVIDERS: PCP Nurse Practitioner Family; Visit Provider Nurse Practitioner Family
DX: E78.5 Hyperlipidemia, unspecified (principal); R01.2 Other cardiac sounds
CPT/HCPCS: 82550; 83721; 83718; 83880; 84439; 84443; 84450; 84460

== ENCOUNTER 2023-10-18 15:36 | Outpatient (REF) | payer MEDICARE, MEDICAID, SELFPAY ==
[2023-10-18 15:49] LABS: Anion Gap 11.3 mmol/L (3-11); BUN 17 mg/dL (7-18); CO2 25.7 mmol/L (21.0-32.0); CREATININE 0.7 mg/dL (0.70-1.30); Calcium 9.7 mg/dL (8.5-10.1); Chloride 106 mmol/L (98-107); Estimated GFR 94.31 (mL/min/1.73m2); Glucose 88 mg/dL (74-106); Potassium 3.8 mmol/L (3.5-5.1); Sodium 143 mmol/L (136-145)
== END 2023-10-18 15:37 | disposition home or self-care (01) ==
LOC: NCHCN 15:36
PROVIDERS: PCP Nurse Practitioner Family; Referring Provider Nurse Practitioner Family; Visit Provider Nurse Practitioner Family
DX: I10 Essential (primary) hypertension (principal)
CPT/HCPCS: 80048

== ENCOUNTER 2024-02-01 12:59 | Outpatient (REF) | payer MEDICARE, MEDICAID, SELFPAY | END 2024-02-01 13:00 | disposition home or self-care (01) | LOC: NCHCN 12:59 | PROVIDERS: PCP Nurse Practitioner Family; Visit Provider Family Medicine | DX: L97.528 Non-pressure chronic ulcer of other part of left foot with other specified severity (principal) | CPT/HCPCS: 87077; 87070; 87205 ==

== ENCOUNTER 2024-03-29 00:07 | Outpatient (CLI) | payer MEDICARE, MEDICAID, SELFPAY ==
--- NOTE | 2024-03-29 | DI.CT_ITS ---
Exam(s) CT CHEST WO EXAM: CT CHEST WO CT CHEST WO the CT no CT CLINICAL HISTORY: TOBACCO USER, Z72.0 TECHNIQUE: Imaging Protocol: Axial computed tomography images with coronal and sagittal reformatted images were created and reviewed. Low dose screening protocol. COMPARISON: CT CT CHEST LUNG CANCER SCREEN from 08/11/2022 FINDINGS: Tracheobronchial tree: No bronchiectasis or mucus plugging. Mediastinum and Tresa: No dominant adenopathy or fluid collection. Stable small calcified mediastina l and hilar lymph nodes. Pulmonary parenchyma: No consolidation or dominant measurable mass. Mild emphysematous changes. Atel ectasis at both lung bases. Lung Nodules: Calcified granuloma left upper lobe. Pleura: No effusion. No pneumothorax. Heart: The heart is mildly dilated. Moderate to severe coronary artery calcifications are seen. Aorta: Thoracic aorta non-dilated. Mild atherosclerotic changes. Upper abdomen: Unremarkable. Bones: Unremarkable for age. Soft Tissues: Unremarkable. IMPRESSION: No suspicious pulmonary nodules. Lung RADS Cat 1 - Negative: No nodules and definitely benign nodules Lung-RADS 1.0 CATEGORIES: Category 0 - Prior chest CT exam(s) being located for comparison. Category 1 - Annual screening in 12 months. No nodules or definitely benign nodules. Category 2 - Annual screening in 12 months. Benign appearance. Nodules with low likelihood of becomin g active cancer. Category 3 - 6-month follow-up. Probably benign. Short-term follow-up suggested. Nodules with low lik elihood of becoming active cancer. Category 4A - 3-month follow-up and CT/PET if >8 mm in size. Suspicious finding. Findings which requi re additional testing. Category 4B - Findings which require additional testing and tissue sampling. Category 4X - Category 3 or 4 nodules with additional features or imaging findings that increases the suspicion of malignancy. Modifier S- Potentially clinically significant findings (non lung cancer) RADIATION DOSE DELIVERED: 153.75mGy.cm Total DLP Total DLP DATA REPOSITORY: All CT scans at this facility are submitted to the National Radiology Data Registry (NRDR) Dose Index Registry (DIR) with the [employer] ([employer]). RADIATION OPTIMIZATION: All CT scans at this facility use at least one of these dose optimization te chniques: automated exposure control; mA and/or kV adjustment per patient size (includes targeted exa ms where dose is matched to clinical indication); or iterative reconstruction.
--- OUTSIDE RECORDS SUMMARY | 2024-03-29 00:13 | XMS_ITS | Encounter Summary ---
Author Organization [facility] Address [address] [place] [address] Care Team Providers Care Tailing Hand Name Role Phone Dede Garcia GRANTS ANALYST Primary Care Provider [phone] Encounter Details Date Type Department Care Team (Late st Contact Info) Description 08/22/2022 Lab Requisition [facility] Pathology & Laboratory Medicine - [facility] [address] [place] [address] Deon Salcedo MD Encounter for screening for malignant neoplasm of colon Social History Tobacco Use Types Packs/Day Years Used Date Smoking Tobacco: Never Assessed Interpersonal Safety Answer Date Record ed Physically Hurt Never 03/08/2020 Verbally Threaten Not on file 03/08/2020 Sex and Gender Information Value Date Recorded Sex Assigned at Not on file Gender Identity Not on file Sexual Orientation Not on file documented as of this encounter Plan of Treatment Not on file documented as of this encounter Procedures Procedure Name Priority Date/Time Associated Diagnosis Comments SURGICAL PATHOLOGY Today 08/22/2022 9 :30 EST Encounter for screening for malignant neoplasm of colon documented in this encounter Results * SURGICAL PATHOLOGY (08/22/2022 9:30 EST) Note to Patient The following pathology results have been interpreted by your pathologist and may be available to you before your health provider has had the opportunity to review them. Please allow time for your provider to receive these results and explore management options, if applicable. 08/24/2022 12:40 EST [facility] Final Diagnosis A. COLON, 75 CM, POLYP: Benign mucosal prolapse polyp. Deeper sections examined. B. COLON, 65 CM, POLYP: Changes consistent with benign lymphoid polyp with features of prolapse. Deeper sections examined. C. RECTUM, MID, POLYP: Hyperplastic polyp with features of prolapse. Deeper sections examined. 08/24/2022 12:40 [facility] Attestation By the signature below, the attending physician certifies that they have 1) personally conducted a gross and/or microscopic examination of the described specimen(s), and/or personally interpreted the results of laboratory testing of the described specimen(s), and 2) personally rendered or confirmed the above diagnosis. 08/24/2022 12:40 [facility] at 1240 Clinical History Screening colonoscopy 08/24/2022 12:40 [facility] Gross Description A. Received in formalin labelled with proper patient identification (initials N, W) and polyp @ 75 cm is a mcnally nodular tissue, 0.2 x 0.1 x 0.1 cm. Entirely submitted in A1. B. Received in formalin labelled with proper patient identification (initials N, W) and polyp @ 65 cm are two mcnally to mcnally-brown tissue fragments, 0.2 x 0.2 x 0.1 cm and 0.3 x 0.2 x 0.2 cm. Entirely submitted in B1. C. Received in formalin labelled with proper patient identification (initials N, W) and mid rectum polyp is a mcnally-brown nodular tissue, 0.3 x 0.2 x 0.2 cm. Entirely submitted in C1. GRZEGORZ CHIU(ASCP) 08/22/2022 17:27 08/24/2022 12:40 [facility] Performing Lab [facility] 08/24/2022 12:40 [facility] Scanned Images 08/24/2022 12:40 [facility] Tissue SPECIMEN FROM RECTUM / Unknown 08/22/2022 9:30 EST 08/22/2022 17:14 EST Tissue specimen (specimen) COLON STRUCTURE / Unknown 08/22/2022 9:30 EST 08/22/2022 17:14 EST Tissue specimen (specimen) SPECIMEN FROM RECTUM / Unknown 08/22/2022 9:30 EST 08/22/2022 17:14 EST Deon Salceod MD PATHOLOGY ORDERABLES [facility] [address] [place] [address] documented in this encounter Visit Diagnoses Diagnosis Encounter for screening for malignant neoplasm of colon Special screening for malignant neoplasms, colon documented in this encounter Care Teams Tailing Hand Relationship Specialty Start Date End Date Dede Garcia, GRANTS ANALYST [address] [place] [phone] PCP - General 08/07/22 documented as of this encounter
--- OUTSIDE RECORDS SUMMARY | 2024-03-29 00:13 | XMS_ITS | Encounter Summary ---
Author Organization [facility] Address [address] [place] [address] Care Team Providers Care Evening Or Night Nurse Supervisor Name Role Phone Unknown, Provider Primary Care Provider Encounter Details Date Type Department Care Team (Latest Contact Info) Description 11/01/2018 15:39 EDT - 11/01/2018 23:59 EDT Hospital Encounter [address] [address] Unknown, Provider, Discharge Disposition: Home or Self Care Social History Tobacco Use Types Packs/Day Years Used Date Smoking Tobacco: Never Assessed Sex and Gender Information Value Date Recorded Sex Assigned at Not on file Gender Identity Not on file Sexual Orientation Not on file documented as of this encounter Discharge Disposition Disposition Code Departure Means Destination Home or Self Residential documented in this encounter Plan of Treatment Not on file documented as of this encounter Visit Diagnoses Not on filedocumented in this encounter Care Teams Evening Or Night Nurse Supervisor Relationship Specialty Start Date End Date Unknown, Provider, PCP - General 06/11/15 08/06/22 documented as of this encounter
--- OUTSIDE RECORDS SUMMARY | 2024-03-29 00:13 | XMS_ITS | Clinical Summary ---
Author Organization [facility] [place] [address] Care Team Providers Care Telemarketing Manager Name Role Phone Unavailable Primary Care Provider Unavailabl e Social History Tobacco Use Types Packs/Day Years Used Date Smoking Tobacco: Never Assessed Sex and Gender Information Value Date Recorded Sex Assigned at Not on file Gender Identity Not on file Sexual Orientation Not on file Plan of Treatment Health Maintenance Due Date Last Done Comments Hepatitis C Screening 1963 Tdap adult 1964 Tetanus vaccine 1964 Zoster vaccine (1 of 2) 1995 Advance Directive 2000 Pneumoccocal Vaccine: 65+ (1 of 1 - PCV) 2010 Covid-19 Vaccine (1 - 2022-24 season) 2023 Influenza (Flu) vaccine (1 o f 1 - Influenza standard series) 04/07/2024
--- OUTSIDE RECORDS SUMMARY | 2024-03-29 00:13 | XMS_ITS | Encounter Summary ---
[facility] [place] [address] Care Team Providers Care Keno Writer / Runner Name Role Phone Unavailable Primary Care Provider Unavailabl e Encounter Details Date Type Department Care Team (Latest Contact Info) Description 01/18/2021 9:23 PM EDT - 01/18/2021 11:59 PM EDT Hospital [place] [address] Discharge Disposition: Home Social History Tobacco Use Types Packs/Day Years Used Date Smoking Tobacco: Never Assessed Sex and Gender Information Value Date Recorded Sex Assigned at Not on file Gender Identity Not on file Sexual Orientation Not on file documented as of this encounter Plan of Treatment Not on file documented as of this encounter Procedures Procedure Name Priority Date/Time Associated Diagnosis Comments T3, FREE Routine 01/18/2021 12:42 PM EDT T3 TOTAL Routine 01/18/2021 12:42 PM EDT documented in this encounter Results * T3, free (01/18/2021 12:42 PM EDT) Free T3 3.5 2.0 - 4.4 pg/mL [facility] Blood Venous Draw / Unknown 01/18/2021 12:42 PM EDT 01/18/2021 9:33 PM EDT Narrative Resulting Agency Comment Spec In Lab Leonardo Puri MD CHEMISTRY ORDERABLES [facility] [place] [address] * T3 Total (01/18/2021 12:42 PM EDT) T3 Total 123 75 - 170 ng/dL [facility] Blood Venous Draw / Unknown 01/18/2021 12:42 PM EDT 01/18/2021 9:33 PM EDT Narrative Resulting Agency Comment Spec In Lab Leonardo Puri MD CHEMISTRY ORDERABLES [facility] [place] [address] documented in this encounter Visit Diagnoses Not on filedocumented in this encounter
--- OUTSIDE RECORDS SUMMARY | 2024-03-29 00:13 | XMS_ITS | Encounter Summary ---
Author Organization [facility] Address [address] [place] [address] Care Team Providers Care Canvas Baster Name Role Phone Unavailable Primary Care Provider Unavailabl e Encounter Details Date Type Department Care Team (Late st Contact Info) Description 05/21/2008 Before PRISM Converted Visit (Maple) [facility] - [facility] conversion [address] [place] [address] Isidra Hyman MD [address] [place] [address] [address] [place] [address] Social History Tobacco Use Types Packs/Day Years Used Date Smoking Tobacco: Never Assessed Sex and Gender Information Value Date Recorded Sex Assigned at Not on file Gender Identity Not on file Sexual Orientation Not on file documented as of this encounter Plan of Treatment Not on file documented as of this encounter Procedures Procedure Name Priority Date/Time Associated Diagnosis Comments SURGICAL PATHOLOGY Routine 05/21/2008 0:00 EDT documented in this encounter Results * SURGICAL PATHOLOGY (05/21/2008 0:00 EDT) Pathology Report: SURGICAL PATHOLOGY REPORT ? Reports generated via electronic interface contain original data; ? however they are lacking the format of the original report. ? Caution should be taken when reading/interpreti ng unformatted reports. ? Name: ? YOUNG MOSHER ? Accession #: ? [id number] ? : ? 1945 (Age: 62) ??M ? Collect Date: ? 05/21/2008 ? Location: ? [facility] ? Receive Date: ? 05/23/2008 ? Provider: ISIDRA Prado RICARDO MD ? Copy to: KANDACE MECH MD ? PIERRE D SABA MD ? Final Pathologic Diagnosis: ? A. ?Colon polyp, sigmoid at 35 cm, biopsy: ? 1. ?Tubular adenoma. ? B. ?Colon polyps, ascending, biopsy: ? 1. ?One fragment of tubular adenoma. ? 2. ? Two fragments of hyperplastic polyp, inflamed. ? C. ?Colon polyp, at 25 cm, biopsy: ? 1. ?Hyperplastic polyp. ? D. ?Colon polyp, rectum, biopsy: ? 1. ?Hyperplastic polyp. ? Document reviewed and electronically signed by: ? German Lopez MD ? Report ??Date: 05/26/2008 14:47 ? By the signature above, the attending physician certifies that he/she has ? personally conducted a gross and/or microscopic examination of the described ? specimens and rendered or confirmed the above diagnosis. ? Specimen(s) Received: ? A. ?Sigmoid @ 35 cm ? B. ? Ascending colon ? C. ? At 25 cm ? D. ? Rectum ? Clinical History: ? Not listed ? Gross Description: ? Received in Judy's fixative labelled [place] and sigmoid at 35 cm is a single piece of tissue that measures 0.4 x 0.3 x 0.3 cm and is submitted as ?? (A). ? Received in Judy's fixative labelled [place] and ascending colon are ? three pieces of tissue that range in size from 0.2 x 0.2 x 0.2 cm to 0.5 x 0.4 x 0.2 cm and are all submitted as (B). ? Received in Judy's fixative labelled [place] and 25 cm is a single piece of tissue that measures 0.2 x 0.2 x 0.2 cm and is submitted as (C). ? Received in Judy's fixative labelled [place] and rectum are two pieces of tissue that both measure 0.3 x 0.3 x 0.3 cm and are submitted as (D). ??(. ? Elke)/tmg ? End of Report ? JAMIN JUNIOR 05/21/2008 05/23/2008 12: 30 EDT Isidra Hyman MD PATHOLOGY ORDERABL ES [facility] [address] [place] [address] documented in this encounter Visit Diagnoses Not on filedocumented in this encounter
--- OUTSIDE RECORDS SUMMARY | 2024-03-29 00:13 | XMS_ITS | Clinical Summary ---
Author Organization [facility] Address [address] [place] [address] Care Team Providers Care Production Tool Engineer Name Role Phone Dede Garcia SMELTER CHARGER Primary Care Provider Social History Tobacco Use Types Packs/Day Years [...] Due Date Last Done Comments Hepatitis C Screen 1945 RSV Immunization ( o r 60+ Years) (1 - 1-dose 60+ series) 2005 Fall Risk Screening 2010 COVID-19 Vaccine (2022- season) 2023 Young Kendrick A Personal/Family Self 1945 [address] [place] [address] Young Kendrick A Personal/Family Self [address] [place] [address] [place] [address] Young Kendrick A Personal/Family Self [address] [place] [address] [place] [address] Care Teams Production Tool Engineer Relationship Specialty Start Date End Date Dede Garcia NP [address] [place] [phone] PCP - General 08/07/22
--- OUTSIDE RECORDS SUMMARY | 2024-03-29 00:13 | XMS_ITS | Encounter Summary ---
Author Organization [facility] Address [address] [place] [address] Care Team Providers Care Seismograph Chief Name Role Phone Unknown, Provider Primary Care Provider [phone] Dede Garcia HAIR CLIPPER POWER Primary Care Provider [phone] Encounter Details Date Type Department Care Team (Late st Contact Info) Description 03/21/2020 Lab Requisition [facility] Pathology & Laboratory Medicine - [facility] [address] [place] [address] Outr Resulting Lab, Provider Social History Tobacco Use Types Packs/Day [...] Procedure Name Priority Date/Time Associated Diagnosis Comments DO NOT ORDER STANDALONE - BROAD COVID TEST Today 03/21/2020 8:32 EDT COVID-19 TESTING Routine 03/21/2020 8:32 EDT documented in this encounter Results * DO NOT ORDER STANDALONE - BROAD COVID TEST (03/21/2020 8:32 EDT) COVID-19 rt-PCR Result NEGATIVE Negative 03/22/2020 22:[address] [facility] Comment: 2019-novel Coronavirus (2019-nCoV) not detected by the qRT-PCR assay. Consider testing for other respiratory viruses or re-collecting for 2019-nCoV testing. Note: Optimum timing for peak viral levels during infections caused by 2019-nCoV have not been determined. Collection of multiple specimens from the same patient may be necessary to detect the virus. Limitations Positive results are indicative of active infection with SARS-CoV-2 but do not rule out bacterial infection or co-infection with other viruses. The agent detected may not be the definite cause of disease. In addition, detection of viral RNA may not indicate the presence of infectious virus or that SARS-CoV-2 is the causative agent for clinical symptoms. Negative results do not preclude SARS-CoV-2 infection and should not be used as the sole basis for patient management decisions. Negative results must be combined with clinical observations, patient history, and epidemiological information. False negative results may also occur if amplification inhibitors are present in the specimen or if inadequate numbers of organisms are present in the specimen. Optimum specimen types and timing for peak viral levels during infections caused by SARS-CoV-2 have not been fully determined. Collection of multiple specimens (types and time points) from the same patient may be necessary to detect the virus. The test was validated for use with upper respiratory specimens obtained via nasopharyngeal or oropharyngeal swabs in VTM, UTM, M4, M5, M6, saline, and MTM media. The performance of this test has not been established for other specimens. Specimens collected using other FDA recommended Specimen Collection Materials listed in the FDA COVID-19 [employer] communication (October 31, 2019) are processed with the caveat that they were not all validated for use with this test and the result must be interpreted in this context. Furthermore, a false negative results may occur if a specimen is improperly collected, transported or handled. If the virus mutates in the RT-PCR target region, SARS-CoV-2 may not be detected or may be detected less predictably. Inhibitors or other types of interference may produce a false negative result. An interference study evaluating the effect of common cold medications was not performed. This test is not FDA-cleared but its performance characteristics were established by our CLIA-certified, CAP-accredited, high complexity laboratory in accordance with CLIA regulations, [employer] (CAP) guidelines (Oct 24, 2019), and FDA guidance (Oct 05, 2019). This test is only for use under the Food and Drug Administration's Emergency Use Authorization. Swab ENTIRE NASOPHARYNX / Unknown 03/21/2020 8:32 EDT 03/22/2020 0:25 EDT Provider Outr Resulting Lab MICROBIOLOGY - GENERAL ORDERABLES [facility] [place], [place] * COVID-19 TESTING (03/21/2020 8:32 EDT) COVID-19 rt-PCR Result NEGATIVE Negative 03/22/2020 23:[address] [facility] Comment: 2019-novel Coronavirus (2019-nCoV) not detected by the qRT-PCR assay. Consider testing for other respiratory viruses or re-collecting for 2019-nCoV testing. Note: Optimum timing for peak viral levels during infections caused by 2019-nCoV have not been determined. Collection of multiple specimens from the same patient may be necessary to detect the virus. Limitations Positive results are indicative of active infection with SARS-CoV-2 but do not rule out bacterial infection or co-infection with other viruses. The agent detected may not be the definite cause of disease. In addition, detection of viral RNA may not indicate the presence of infectious virus or that SARS-CoV-2 is the causative agent for clinical symptoms. Negative results do not preclude SARS-CoV-2 infection and should not be used as the sole basis for patient management decisions. Negative results must be combined with clinical observations, patient history, and epidemiological information. False negative results may also occur if amplification inhibitors are present in the specimen or if inadequate numbers of organisms are present in the specimen. Optimum specimen types and timing for peak viral levels during infections caused by SARS-CoV-2 have not been fully determined. Collection of multiple specimens (types and time points) from the same patient may be necessary to detect the virus. The test was validated for use with upper respiratory specimens obtained via nasopharyngeal or oropharyngeal swabs in VTM, UTM, M4, M5, M6, saline, and MTM media. The performance of this test has not been established for other specimens. Specimens collected using other FDA recommended Specimen Collection Materials listed in the FDA COVID-19 [employer] communication (October 31, 2019) are processed with the caveat that they were not all validated for use with this test and the result must be interpreted in this context. Furthermore, a false negative results may occur if a specimen is improperly collected, transported or handled. If the virus mutates in the RT-PCR target region, SARS-CoV-2 may not be detected or may be detected less predictably. Inhibitors or other types of interference may produce a false negative result. An interference study evaluating the effect of common cold medications was not performed. This test is not FDA-cleared but its performance characteristics were established by our CLIA-certified, CAP-accredited, high complexity laboratory in accordance with CLIA regulations, [employer] (CAP) guidelines (Oct 24, 2019), and FDA guidance (Oct 05, 2019). This test is only for use under the Food and Drug Administration's Emergency Use Authorization. Performing Lab [facility] 03/22/2020 23:33 EDT [facility] Swab 03/21/2020 8:32 EDT 03/22/2020 0:25 EDT Provider Outr Resulting Lab MICROBIOLOGY - GENERAL ORDERABLES Performing Organization Address City/State/[facility] Co de Phone Number [facility] [address] [place] [id number] [facility] [place], [place] documented in this encounter Visit Diagnoses Not on filedocumented in this encounter Care Teams Seismograph Chief Relationship Specialty Start Date End Date Unknown, Provider, PCP - General 06/11/15 08/06/22 Dede Garcia NP [address] [place] [phone] PCP - General 08/07/22 documented as of this encounter
--- OUTSIDE RECORDS SUMMARY | 2024-03-29 00:13 | XMS_ITS | Referral Summary ---
Author Organization [facility] Address [address] [place] [address] Care Team Providers Care Locomotive Oiler Name Role Phone Dede Garcia BLAST FURNACE SUPERVISOR Primary Care Provider [phone] Social History Tobacco Use Types Packs/Day Years Used Date Smoking Tobacco: Never Assessed Interpersonal Safety Answer Date Record ed Physically Hurt Never 03/08/2020 Verbally Threaten Not on file 03/08/2020 Sex and Gender Information Value Date Recorded Sex Assigned at Not on file Gender Identity Not on file Sexual Orientation Not on file Plan of Treatment Not on file Young Kendrick A Personal/Family Self 1945 [address] [place] [address] Young Kendrick A Personal/Family Self 1945 [address] [place] [address] Young Kendrick A Personal/Family Self 1945 [address] [place] [address] Care Teams Locomotive Oiler Relationship Specialty Start Date End Date Dede Garcia NP [address] [place] [phone] PCP - General 08/07/22
--- OUTSIDE RECORDS SUMMARY | 2024-03-29 00:13 | XMS_ITS | Encounter Summary ---
Author Organization [facility] Address [address] [place] [address] Care Team Providers Care Fishing Line Winding Machine Operator Name Role Phone Unknown, Provider Primary Care Provider Encounter Details Date Type Department Care Team (Late st Contact Info) Description 11/02/2018 Results Only [facility]- PRISM [phone] Ji Reyes, [address] [place], [place] [id number] Social History Tobacco Use Types Packs/Day Years Used Date Smoking Tobacco: Never Assessed Sex and Gender Information Value Date Recorded Sex Assigned at Not on file Gender Identity Not on file Sexual Orientation Not on file documented as of this encounter Plan of Treatment Not on file documented as of this encounter Procedures Procedure Name Priority Date/Time Associated Diagnosis Comments CYTOPATHOLOGY Routine 11/01/2018 0:00 EDT documented in this encounter Results * CYTOPATHOLOGY (11/01/2018 0:00 EDT) Pathology Report: CYTOPATHOLOGY REPORT Reports generated via electronic interface contain original data; however they are lacking the format of the original report. Caution should be taken when reading/interpret ing unformatted reports. Name: ? YOUNG MOSHER ? Accession #: ? [id number] : ? 1945 (Age: 73) ??M ?Collect Date: ? 11/01/2018 Location: ? [facility] ? Receive Date: ? 11/02/2018 Provider: ? JI REYES DO Copy to: ?PATRICIA PIMENTEL GROUNDWATER CONSULTANT ? CYTOLOGIC DIAGNOSIS: A. THYROID, LEFT LOBE, ULTRASOUND GUIDED FINE NEEDLE ASPIRATION: - Benign follicular nodule with cystic changes. See comment. ? COMMENT: Cytologic evaluation reveals a cellular specimen comprised of variably sized follicular cells arranged predominantly in macrofollicles with focal Hurthle cell change. Abundant colloid, hemosiderin-laden macrophages and cyst-lining cells are also noted in the background. The cytologic features are those of a benign follicular nodule with cystic degeneration. Alfonso Sykes 11/05/2018 11:34 AM Document reviewed and electronically signed by: ? ORLY WILLIAMSON MD Report Date: ??11/05/2018 13:59 By the signature above, the attending physician certifies that he/she has personally conducted a gross and/or microscopic examination of the described specimens and rendered or confirmed the above diagnosis. Specimen Type: ? Thyroid, Fine Needle Aspiration, LEFT LOBE Clinical History: ? Left lobe thyroid nodule. ? Clinical diagnosis code: F17.200 ? Gross Description: ? 1 fixed prepared slides, 1 air dried prepared slides, and 1 tube of CytoLyt were received and processed by selective cellular enhancement technique. ? End of Report [facility] 11/01/2018 11/02/2018 17: 11 EDT Ji Reyes DO PATHOLOGY ORDER JOMAR [facility] [address] [place] [id number] documented in this encounter Visit Diagnoses Not on filedocumented in this encounter Care Teams Fishing Line Winding Machine Operator Relationship Specialty Start Date End Date Unknown, Provider, PCP - General 06/11/15 08/06/22 documented as of this encounter
--- OUTSIDE RECORDS SUMMARY | 2024-03-29 00:13 | XMS_ITS | Encounter Summary ---
Author Organization [facility] Address [address] [place] [address] Care Team Providers Care Housekeeping Laundry Worker Name Role Phone Unknown, Provider Primary Care Provider [phone] Dede Garcia REVENUE FIELD AGENT Primary Care Provider Encounter Details Date Type Department Care Team (Late st Contact Info) Description 12/27/2019 Lab Requisition [facility] Pathology & Laboratory Medicine - [facility] [address] [place] [address] Outr Resulting Lab, Provider Social History Tobacco [...] Procedure Name Priority Date/Time Associated Diagnosis Comments T3 FREE Routine 12/27/2019 10:28 EDT documented in this encounter Results * T3 FREE (12/27/2019 10:28 EDT) T3, Free 4.9 2.8 - 5.3 pg/mL 12/27/2019 16:20 EDT [facility] Blood VENOUS BLOOD / Unknown 12/27/2019 10:28 EDT 12/27/2019 15:51 EDT Provider Outr Resulting Lab CHEMISTRY & BLOOD GAS ORDERABLES [facility] [address] [place] [address] documented in this encounter Visit Diagnoses Not on filedocumented in this encounter Care Teams Housekeeping Laundry Worker Relationship Specialty Start Date End Date Unknown, Provider, PCP - General 06/11/15 08/06/22 Dede Garcia, TAWANDA [address] [place] [phone] PCP - General 08/07/22 documented as of this encounter
--- NOTE | 2024-03-29 14:30 | DI.US_ITS ---
APPROVED REPORT EXAM: Comprehensive 2D, Doppler, and color-flow Echocardiogram Patient Location: Out-Patient Family Life Counselor: Antoine Preciado RDCS (AE) Indications: Third sound gallop Conclusion Normal left ventricular wall thickness and chamber size. Ejection fraction is 55 to 60%. Wall motio n is normal Normal right ventricular size and function Both atria are normal in size The atrial septum is thin and hypermobile The aortic valve is mildly sclerotic and trileaflet with mild regurgitation Normal mitral valve with trace regurgitation Normal tricuspid valve with mild regurgitation. Estimated right ventricular systolic pressure is 32 mmHg Wall motion Left Ventricle The left ventricle is normal size. The left ventricular systolic function is normal. The left ventric ular ejection fraction is within the normal range. There is normal left ventricular wall thickness. T here is normal LV segmental wall motion. There is no ventricular septal defect visualized. LVEF is 55 -60 %. Right Ventricle The right ventricle is normal size. The right ventricular systolic function is normal. Atria The left atrium size is normal. The right atrium size is normal. Atrial septum is thin and hypermobi le Aortic Valve The aortic valve is mildly sclerotic Aortic valve is trileaflet. There is no aortic valvular stenosis . Mild aortic regurgitation. Mitral Valve The mitral valve is normal in structure. No evidence of mitral valve stenosis. Trace mitral regurgita tion. Tricuspid Valve The tricuspid valve is normal in structure. There is no tricuspid valve stenosis. Mild tricuspid regu rgitation. The RVSP is 31.6 mmHg. Pulmonic Valve The pulmonary valve is normal in structure. There is no pulmonic valvular stenosis. Trace pulmonic re gurgitation. Great Vessels The aortic root is normal in size. The ascending aorta is normal in size. Aortic arch is normal in ca liber. IVC is normal in size and collapses >50% with inspiration. Pericardium There is no pericardial effusion. 2D Dimensions IVSD d PLAX 0.80 cm M: 0.6-1.2 Ao Root d 3.17 cm M: 3.1 - 3.7 LVPW d PLAX 0.84 cm M: 0.6 - 1.2 Ao Asc Diam d 3.26 cm M: 2.6 - 3.4 LVID d PLAX 3.89 cm M: 4.2 - 5.8 LVDs 2.69 cm M: 2.5 - 4.0 LV EF Teichholz 59.2 % FS 30.88 % LV EDV (Teich) 65.4 mL LV ESV (Teich) 26.7 mL Stroke Vol Index (Teich) 22.25 M-Mode TAPSE 2.14 cm (M/F) >1.7 Auto EF LV EDV A4C 102.3 mL LV EDV A2C 111.1 mL LV EDV BP 106.7 mL LV ESV A4C 43.5 mL LV ESV A2C 48.0 mL LV ESV BP 45.6 mL LVEF(%) A4C 57.4 % LVEF(%) A2C 56.8 % LVEF(%) BP 57.2 % LV SV A4C 58.7 ml LV SV A2C 63.1 ml LV SV BP 61.1 ml LV CO A4C 3.9 L/min LV CO A2C 4.2 L/min LV CO BP 4.1 L/min HR A4C 66.76 BPM HR A2C 67.04 BPM LV EDV Index (BP) LA Volume LA Length A4C 4.7 cm LA Length A2C 5.2 cm LA Area A4C s 11.35 cm2 LA Area A2C s 11.45 cm2 LA Vol A4C A-L 23.05 mL LA Vol A2C A-L 21.60 mL LA Vol Biplane A-L 23.3 mL LA Vol/BSA A4C A-L LA Vol/BSA A2C A-L LA Vol/BSA BP A-L 13.4 mL/m2 LA Vol A4C MOD 20.4 mL LA Vol A2C MOD 19.5 mL LA Vol BP MOD 20.4 mL RA Volume RA Area A4C 12.7 cm2 RA ESV A4C (A-L) 32.1mL RA Vol/BSA A4C A-L RA Length A4C 4.3 cm RA ESV A4C (MOD) 30.9mL LV Diastology MV E' medial 0.079 (>0.07 m/s) MV E' lateral 0.088 (>0.1 m/s) Aortic Valve AoV Vmax 1.05 m/s LVOT Vmax 0.95 m/s AoV Peak Grad 27.3 mmHg LVOT Peak Grad 3.6 mmHg AoV Area (Vmax) 3.45 cm2 LVOT VTI 0.193 m AoV VTI 0.241 m LVOT Mean Grad 1.8 mmHg AoV Mean Josesito. 0.76 m/s LVOT SV 73.34 mL AoV Mean Grad 2.5 mmHg LVOT Diam s 2.20 cm AoV Area (VTI) 3.04 cm2 AV Regurg Peak Gr. 4.42 mmHg Velocity Ratio 0.90 AR Decel [place] 2.6m/sec2 AR DT 1388 msec AR PHT 402 msec AR Vmax 3.54 m/s Pulmonary Valve PV Vmax 0.72 (0.5-1.5 m/s) RVOT Vmax 0.81 m/s PV Peak Grad 2.1 mmHg RVOT Peak Gr. 2.6 mmHg PV Mean Josesito 0.58 m/s RVOT VTI 0.224 m PV Mean Grad 1.4 mmHg RVOT Mean Gr. 1.1 mmHg Tricuspid Valve RA Pressure 3.00 mmHg TR Vmax 2.68 m/s TR Peak Grad 28.6 mmHg RVSP (TR) 31.6 mmHg
== END 2024-03-29 00:27 ==
LOC: DI 00:07
PROVIDERS: PCP Nurse Practitioner Family; Visit Provider Family Medicine
DX: R01.2 Other cardiac sounds (principal)
CPT/HCPCS: 71250; 93306

== ENCOUNTER 2024-04-02 11:55 | Outpatient (REF) | payer MEDICARE, MEDICAID, SELFPAY ==
--- OUTSIDE RECORDS SUMMARY | 2024-04-02 11:56 | XMS_ITS | Encounter Summary ---
Author Organization [facility] Address [address] [place] [address] Care Team Providers Care Assistant Account Executive Name Role Phone Dede Garcia TOWER SUPERVISOR Primary Care Provider [phone] Encounter Details Date Type Department Care Team (Late st Contact Info) Description 08/22/2022 Lab Requisition [facility] Pathology & Laboratory Medicine - [facility] [address] [place] [address] eDon Salcedo MD Encounter for screening for malignant [...] management options, if applicable. 08/24/2022 12:40 EST [facility] Final Diagnosis A. COLON, 75 CM, POLYP: Benign mucosal prolapse polyp. Deeper sections examined. B. COLON, 65 CM, POLYP: Changes consistent with benign lymphoid polyp with features of prolapse. Deeper sections examined. C. RECTUM, MID, POLYP: Hyperplastic polyp with features of prolapse. Deeper sections examined. 08/24/2022 12:40 [facility] Attestation By the signature below, the attending physician certifies that they have 1) personally conducted a gross and/or microscopic examination of the described specimen(s), and/or personally interpreted the results of laboratory testing of the described specimen(s), and 2) personally rendered or confirmed the above diagnosis. 08/24/2022 12:40 [facility] at 1240 Clinical History Screening colonoscopy 08/24/2022 12:40 [facility] Gross Description A. [...] C1. GRZEGORZ CHIU(ASCP) 08/22/2022 17:27 08/24/2022 12:40 [facility] Performing Lab [facility] 08/24/2022 12:40 [facility] Scanned Images 08/24/2022 12:40 [facility] Tissue SPECIMEN FROM RECTUM / Unknown 08/22/2022 9:30 EST 08/22/2022 17:14 EST Tissue specimen (specimen) COLON STRUCTURE / Unknown 08/22/2022 9:30 EST 08/22/2022 17:14 EST Tissue specimen (specimen) SPECIMEN FROM RECTUM / Unknown 08/22/2022 9:30 EST 08/22/2022 17:14 EST Deon Salcedo MD PATHOLOGY ORDERABLES [facility] [address] [place] [address] documented in this encounter Visit Diagnoses Diagnosis Encounter for screening for malignant neoplasm of colon Special screening for malignant neoplasms, colon documented in this encounter Care Teams Assistant Account Executive Relationship Specialty Start Date End Date Dede Garcia, TOWER SUPERVISOR [address] [place] [phone] PCP - General 08/07/22 documented as of this encounter
--- OUTSIDE RECORDS SUMMARY | 2024-04-02 11:56 | XMS_ITS | Referral Summary ---
Author Organization [facility] Address [address] [place] [address] Care Team Providers Care Extraction Operator Name Role Phone Dede Garcia PATIENT CARRIER Primary Care Provider [phone] Social History Tobacco Use Types Packs/Day Years [...] Young Kendrick A Personal/Family Self 1945 [address] [place] [address] Young Kendrick A Personal/Family Self 1945 [address] [place] [address] Young Kendrick A Personal/Family Self 1945 [address] [place] [address] Care Teams Extraction Operator Relationship Specialty Start Date End Date Dede Garcia NP [address] [place] [phone] PCP - General 08/07/22
--- OUTSIDE RECORDS SUMMARY | 2024-04-02 11:56 | XMS_ITS | Clinical Summary ---
Author Organization [facility] Address [address] [place] [address] Care Team Providers Care Name Plate Stamper Name Role Phone Dede Garcia MANUFACTURING ASSISTANT Primary Care Provider [phone] Social History Tobacco Use Types Packs/Day Years [...] Young Kendrick A Personal/Family Self [address] [place] [address] Young Kendrick A Personal/Family Self [address] [place] [address] [place] [address] Young Kendrick A Personal/Family Self 1945 [address] [place] [address] [place] [address] Care Teams Name Plate Stamper Relationship Specialty Start Date End Date Dede Garcia NP [address] [place] [phone] PCP - General 08/07/22
--- OUTSIDE RECORDS SUMMARY | 2024-04-02 11:57 | XMS_ITS | Encounter Summary ---
[facility] [place] [address] Care Team Providers Care Driver Name Role Phone Unavailable Primary Care Provider Unavailabl e Encounter Details Date Type Department Care Team (Latest Contact Info) Description 01/18/2021 9:23 PM EDT - 01/18/2021 11:59 PM EDT [place] [address] Discharge Disposition: Home Social History Tobacco Use [...] Free T3 3.5 2.0 - 4.4 pg/mL [facility] Blood Venous Draw / Unknown 01/18/2021 12:42 PM EDT 01/18/2021 9:33 PM EDT Narrative Resulting Agency Comment Spec In Lab Leonardo Puri MD CHEMISTRY ORDERABLES [facility] [place] [address] * T3 Total (01/18/2021 12:42 PM EDT) T3 Total 123 75 - 170 ng/dL [facility] Blood Venous Draw / Unknown 01/18/2021 12:42 PM EDT 01/18/2021 9:33 PM EDT Narrative Resulting Agency Comment Spec In Lab Leonardo Puri MD CHEMISTRY ORDERABLES [facility] [place] [address] documented in this encounter Visit Diagnoses Not on filedocumented in this encounter
--- OUTSIDE RECORDS SUMMARY | 2024-04-02 11:57 | XMS_ITS | Encounter Summary ---
Author Organization [facility] Address [address] [place] [address] Care Team Providers Care Machine Rope Maker Name Role Phone Unavailable Primary Care Provider Unavailabl e Encounter Details Date Type Department Care Team (Late st Contact Info) Description 05/21/2008 Before PRISM Converted Visit (Maple) [facility] - Maple conversion [address] [place] [address] Isidra Hyman MD [address] [place] [address] [address] [place] [address] Social History Tobacco Use Types [...] ? YOUNG MOSHER ? Accession #: ? [id number] ? : ? 1945 (Age: 62) ??M [...] Description: ? Received in Judy's fixative labelled Clanton and sigmoid at 35 cm is a single piece of tissue that measures 0.4 x 0.3 x 0.3 cm and is submitted as ?? (A). ? Received in Judy's fixative labelled Clanton and ascending colon are ? three pieces of tissue that range in size from 0.2 x 0.2 x 0.2 cm to 0.5 x 0.4 x 0.2 cm and are all submitted as (B). ? Received in Judy's fixative labelled Clanton and 25 cm is a single piece of tissue that measures 0.2 x 0.2 x 0.2 cm and is submitted as (C). ? Received in Judy's fixative labelled [place]anton and rectum are two pieces of tissue that both measure 0.3 x 0.3 x 0.3 cm and are submitted as (D). ??(. ? Elke)/tmg ? End of Report ? JAMIN JUNIOR 05/21/2008 05/23/2008 12: 30 EDT Isidra Hyman MD PATHOLOGY ORDERABL ES [facility] [address] [place] [address] documented in this encounter Visit Diagnoses Not on filedocumented in this encounter
--- OUTSIDE RECORDS SUMMARY | 2024-04-02 11:57 | XMS_ITS | Encounter Summary ---
Author Organization [facility] Address [address] [place] [address] Care Team Providers Care Drum Handler Name Role Phone Unknown, Provider Primary Care Provider [phone] Encounter Details Date Type Department Care Team (Late st Contact Info) Description 11/02/2018 Results Only [facility]- [facility] [phone] Ji Reyes, [address] [place], [place] [id number] Social History Tobacco Use Types Packs/Day Years [...] ? YOUNG MOSHER ? Accession #: ? [id number] : ? 1945 (Age: 73) ??M ?Collect Date: ? 11/01/2018 Location: ? [facility] ? Receive Date: ? 11/02/2018 Provider: ? JI REYES DO Copy to: ?PATRICIA PIMENTEL SWITCH TENDER ? CYTOLOGIC DIAGNOSIS: A. THYROID, LEFT LOBE, [...] cellular enhancement technique. ? End of Report [facility] 11/01/2018 11/02/2018 17: 11 EDT Ji Reyes DO PATHOLOGY ORDER JOMAR [facility] [address] [place] [address] documented in this encounter Visit Diagnoses Not on filedocumented in this encounter Care Teams Drum Handler Relationship Specialty Start Date End Date Unknown, Provider, PCP - General 06/11/15 08/06/22 documented as of this encounter
--- OUTSIDE RECORDS SUMMARY | 2024-04-02 11:57 | XMS_ITS | Encounter Summary ---
Author Organization [facility] Address [address] [place] [address] Care Team Providers Care Cabin Service Agent Name Role Phone Unknown, Provider Primary Care Provider Dede Garcia ACTIVITIES SPECIALIST Primary Care Provider Encounter Details Date Type Department Care Team (Late st Contact Info) Description 03/21/2020 Lab Requisition [facility] Pathology & Laboratory Medicine - [facility] [address] [place] [address] Outr Resulting Lab, Provider Social History Tobacco [...] rt-PCR Result NEGATIVE Negative 03/22/2020 22:54 EDT [facility] Comment: 2019-novel Coronavirus (2019-nCoV) not [...] in accordance with CLIA regulations, [employer] [place] [employer] (CAP) guidelines (Oct 24, 2019), and FDA guidance (Oct 05, 2019). This test is only for use under the Food and Drug Administration's Emergency Use Authorization. Swab ENTIRE NASOPHARYNX / Unknown 03/21/2020 8:32 EDT 03/22/2020 0:25 EDT Provider Outr Resulting Lab MICROBIOLOGY - GENERAL ORDERABLES [facility] [place], [place] * COVID-19 TESTING (03/21/2020 8:32 EDT) COVID-19 rt-PCR Result NEGATIVE Negative 03/22/2020 23:33 EDT [facility] Comment: 2019-novel Coronavirus (2019-nCoV) not detected [...] in accordance with CLIA regulations, [employer] [place] [employer] (CAP) guidelines (Oct 24, 2019), and FDA guidance (Oct 05, 2019). This test is only for use under the Food and Drug Administration's Emergency Use Authorization. Performing Lab [facility] 03/22/2020 23:33 EDT [facility] Swab 03/21/2020 8:32 EDT 03/22/2020 0:25 EDT Provider Outr Resulting Lab MICROBIOLOGY - GENERAL ORDERABLES Performing Organization Address City/State/[facility] Co de Phone Number [facility] [address] [place] [phone] [facility] [place], [place] documented in this encounter Visit Diagnoses Not on filedocumented in this encounter Care Teams Cabin Service Agent Relationship Specialty Start Date End Date Unknown, Provider, PCP - General 06/11/15 08/06/22 Dede Garcia NP [address] [place] [address] PCP - General 08/07/22 documented as of this encounter
--- OUTSIDE RECORDS SUMMARY | 2024-04-02 11:57 | XMS_ITS | Encounter Summary ---
Author Organization [facility] Address [address] [place] [address] Care Team Providers Care Physician Underwriter Name Role Phone Unknown, Provider Primary Care Provider [phone] Encounter Details Date Type Department Care Team (Latest Contact Info) Description 11/01/2018 15:39 EDT - 11/01/2018 23:59 EDT Hospital Encounter [address] [address] Unknown, Provider, Discharge Disposition: Home or Self Care Social History Tobacco Use Types Packs/Day Years Used Date Smoking Tobacco: Never Assessed Sex and Gender Information Value Date Recorded Sex Assigned at Not on file Gender Identity Not on file Sexual Orientation Not on file documented as of this encounter Discharge Disposition Disposition Code Departure Means Destination Home or Self Long-Term documented in this encounter Plan of Treatment Not on file documented as of this encounter Visit Diagnoses Not on filedocumented in this encounter Care Teams Physician Underwriter Relationship Specialty Start Date End Date Unknown, Provider, PCP - General 06/11/15 08/06/22 documented as of this encounter
--- OUTSIDE RECORDS SUMMARY | 2024-04-02 11:57 | XMS_ITS | Encounter Summary ---
Author Organization [facility] Address [address] [place] [address] Care Team Providers Care Standpipe Tender Name Role Phone Unknown, Provider Primary Care Provider [phone] Dede Garcia COMPOSITION ROLL MAKER AND CUTTER Primary Care Provider Encounter Details Date Type Department Care Team (Late st Contact Info) Description 12/27/2019 Lab Requisition [facility] Pathology & Laboratory Medicine - [facility] [address] [place] [address] Outr Resulting Lab, Provider Social History Tobacco [...] 2.8 - 5.3 pg/mL 12/27/2019 16:20 EDT [facility] Blood VENOUS BLOOD / Unknown 12/27/2019 10:28 EDT 12/27/2019 15:51 EDT Provider Outr Resulting Lab CHEMISTRY & BLOOD GAS ORDERABLES [facility] [address] [place] [address] documented in this encounter Visit Diagnoses Not on filedocumented in this encounter Care Teams Standpipe Tender Relationship Specialty Start Date End Date Unknown, Provider, PCP - General 06/11/15 08/06/22 Dede Garcia, TAWANDA [address] [place] [phone] PCP - General 08/07/22 documented as of this encounter
--- OUTSIDE RECORDS SUMMARY | 2024-04-02 11:57 | XMS_ITS | Clinical Summary ---
Author Organization [facility] [place] [address] Care Team Providers Care Senior Product Development Manager Name Role Phone Unavailable Primary Care [...]
== END 2024-04-02 11:56 | disposition home or self-care (01) ==
LOC: NCHCN 11:55
PROVIDERS: PCP Nurse Practitioner Family; Visit Provider Family Medicine
DX: L97.529 Non-pressure chronic ulcer of other part of left foot with unspecified severity (principal)
CPT/HCPCS: 87077; 87070; 87186; 87205

== ENCOUNTER → 2024-05-08 14:26 | Outpatient (BNVA) | payer MEDICARE, MEDICAID, SELFPAY | PROVIDERS: PCP Nurse Practitioner Family; Referring Provider Nurse Practitioner Family; Visit Provider Nurse Practitioner Family | DX: L60.3 Nail dystrophy (principal); R09.89 Other specified symptoms and signs involving the circulatory and respiratory systems; R23.8 Other skin changes; R20.8 Other disturbances of skin sensation; R60.0 Localized edema; I73.89 Other specified peripheral vascular diseases | CPT/HCPCS: 11721 ==

== ENCOUNTER → 2024-05-30 14:10 | Outpatient (BNVA) | payer MEDICARE, MEDICAID, SELFPAY | PROVIDERS: PCP Nurse Practitioner Family; Referring Provider Nurse Practitioner Family; Visit Provider Podiatrist | DX: I83.023 Varicose veins of left lower extremity with ulcer of ankle (principal); L97.322 Non-pressure chronic ulcer of left ankle with fat layer exposed; I87.2 Venous insufficiency (chronic) (peripheral); R60.0 Localized edema; F17.200 Nicotine dependence, unspecified, uncomplicated | CPT/HCPCS: 11057; 11104; 29581 ==

== ENCOUNTER 2024-06-10 11:01 | Emergency (ER) | payer MEDICARE, MEDICAID, SELFPAY ==
[2024-06-10 11:04] VITALS: BP 142/86; PULSE 90; RESP 16; TEMP 36.4; O2SAT 97
[2024-06-10 11:14] VITALS: BP 142/86; PULSE 90; RESP 16; TEMP 36.4; O2SAT 97
[2024-06-10 11:41] LABS: Abs Immature Grans 0.06 10^3/uL (0.0-0.06); Absolute Basophil Count 0.04 10^3/uL (0.0-0.2); Absolute Lymphocyte Count 2.24 10^3/uL (1.2-3.4); Absolute Monocyte Count 0.82 10^3/uL (0.1-0.8); Absolute Neutrophil Count 7.39 10^3/uL (1.2-6.7); Basophils % 0.3 %; Eosinophils % 13.5 %; HCT 40.8 % (40.0-50.0); HGB 13.5 g/dL (13.5-17.5); Immature Grans % 0.5 %; Lymphocytes % 18.4 %; MCH 30.1 pg (27.0-33.0); MCHC 33.1 % (32.0-36.0); MCV 91 fL (80-95); MPV 10.2 fL (8.0-11.0); Monocytes % 6.7 %; Neutrophils % 60.6 %; Platelet Count 254 10^3/uL (130-400); RBC 4.49 10^6/uL (4.36-5.78); RDW 14.7 % (11.8-14.1); RDW-SD 49.3 fL; WBC 12.19 10^3/uL (4.4-10.8)
[2024-06-10 11:42] LABS: Absolute Eosinophil Count 1.65 10^3/uL (0.0-0.7)
--- NOTE | 2024-06-10 11:55 | ED.GENADUL_ITS ---
Discharge Plan Disposition Patient Disposition: Home Condition: Stable Discharge Details Clinical Impression: Diarrhea Primary Care Provider: Terrance Potts ED Provider: Joanne Mattson Home Meds and New Rx's Prescriptions: Continued aspirin 81 mg tablet,delayed release (DR/EC) 81 mg PO DAILY MediHoney (honey) 80 % gel 1 applic topical DAILY Qty: 44 0RF lisinopril 10 mg tablet 10 mg PO DAILY simvastatin 20 mg tablet 20 mg PO DAILY cholecalciferol (vitamin D3) 25 mcg (1,000 unit) capsule 25 mcg PO DAILY Santyl 250 unit/gram ointment 1 applic topical DAILY Qty: 30 2RF Rx Instructions: 11 mm x 8 mm x 2 mm Discharge Instructions Additional Instructions: Please follow-up with your primary care physician in 24 to 48 hours You may take Imodium as needed but do not take for longer than 2 to 3 days Please return should you develop abdominal pain, fever, chills, or any new or worsening complaints You do have an artery on your CAT scan that has abnormality, however this is not new and you could follow-up with your doctor or your vascular doctor regarding this finding Please return earlier should you have new or worsening complaints Referrals: Terrance Potts PA [Primary Care Provider] - 2 days Discharge Data Discharge Date/Time-TO BE ENTERED AT DEPARTURE: 06/10/24 14:10 HPI General Date/Time Provider Initiated Documentation: 06/10/24 11:18 . HPI Narrative: 78-year-old male presents with intermittent diarrhea for the past month dark stools per patient. Denies any fever or chills. Denies any abdominal pain. Denies any nausea or vomiting or new medications. Denies any known spoiled food exposure or recent antibiotic use. Denies chest pain or shortness of breath. Denies dizziness or weakness. Related Data Home Medications ?Medication ?Instructions ?Recorded ?Confirmed lisinopril 10 mg tablet 10 mg PO DAILY 01/13/20 06/10/24 simvastatin 20 mg tablet 20 mg PO DAILY 01/30/20 06/10/24 cholecalciferol (vitamin D3) 25 25 mcg PO DAILY 09/30/21 06/10/24 mcg (1,000 unit) capsule aspirin 81 mg tablet,delayed 81 mg PO DAILY 04/23/24 06/10/24 release collagenase clostridium histo. 250 1 applic topical DAILY #30 grams 05/30/24 06/10/24 unit/gram topical ointment (Santyl) honey 80 % topical gel (MediHoney 1 applic topical DAILY #44 mL 05/30/24 06/10/24 (honey)) Previous Rx's ?Medication ?Instructions ?Recorded collagenase clostridium histo. 250 1 applic topical DAILY #30 grams 05/30/24 unit/gram topical ointment (Santyl) honey 80 % topical gel (MediHoney 1 applic topical DAILY #44 mL 05/30/24 (honey)) Allergies Allergy/AdvReac Type Severity Reaction Status Date / Time No Known Allergies Allergy Unverified 06/10/24 11:09 General Stated Complaint: Abd Prob RUSTAM: 3 Exam Narrative Exam Narrative: Alert and oriented, no acute distress, nontender abdominal exam, no pallor, answering questions appropriately, moist mucous membranes, lungs clear to auscultation, cardiac rate rhythm regular. Course Vital Signs Vital signs: Vital Signs Temperature 36.4 C L 06/10/24 11:04 Pulse 90 06/10/24 11:04 Respiratory Rate 16 06/10/24 11:04 Blood Pressure 142/86 H 06/10/24 11:04 Pulse Oximetry 97 06/10/24 11:04 Temperature 36.4 C L 06/10/24 11:14 Temperature Source Oral 06/10/24 11:14 Pulse 90 06/10/24 11:14 Respiratory Rate 16 06/10/24 11:14 Respiratory Effort Normal, Non-Labored 06/10/24 11:14 Blood Pressure 142/86 H 06/10/24 11:14 Pulse Oximetry 97 06/10/24 11:14 Oxygen Delivery Method Room Air 06/10/24 11:14 Oxygen Flow Rate 0 06/10/24 11:14 Pain Level 0 06/10/24 11:37 Lab/Test Results Lab/Test Results: Laboratory Tests Range/Units 06/10/24 11:29 WBC (4.4-10.8) 10^3/uL 12.19 H RBC (4.36-5.78) 10^6/uL 4.49 Hgb (13.5-17.5) g/dL 13.5 Hct (40.0-50.0) % 40.8 MCV (80-95) fL 91 MCH (27.0-33.0) pg 30.1 MCHC (32.0-36.0) % 33.1 RDW (11.8-14.1) % 14.7 H Plt Count (130-400) 10^3/uL 254 MPV (8.0-11.0) fL 10.2 Immature Gran % % 0.5 Neutrophils % % 60.6 Lymphocytes % % 18.4 Monocytes % % 6.7 Eosinophils % % 13.5 Basophils % % 0.3 Nucleated RBC % (0.0-0.3) % 0.0 Absolute Neutrophils (1.2-6.7) 10^3/uL 7.39 H Absolute Lymphocytes (1.2-3.4) 10^3/uL 2.24 Absolute Monocytes (0.1-0.8) 10^3/uL 0.82 H Absolute Eosinophils (0.0-0.7) 10^3/uL 1.65 H Absolute Basophils (0.0-0.2) 10^3/uL 0.04 Medical Decision Making 78-year-old male in no acute distress with stable labs aside from mild elevation in calcium level which patient will need to have rechecked. Patient is eating and drinking within normal limits and there is no evidence of anemia, low suspicion clinically for GI bleed. I did attempt to obtain a C. difficile and stool bacterial pathogens culture, however patient was unable to have a bowel movement while in the emergency department. He is encouraged to follow-up with his primary care physician in 24 to 48 hours for reassessment. 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 This is not an acute finding per radiology. Discharged home abdominal exam in stable condition with stable vital return precautions reviewed and patient expressed understanding Quality:SDOH Health Related Social Needs: No Data to Display PFSH All Active Problems (Updated 06/10/24 @ 13:49 by GRZEGORZ Parisi) Diarrhea (Acute) Nonhealing ulcer of left lower leg (Acute) Edema (Acute) Venous stasis ulcer of left ankle with fat layer exposed (Acute) Nodule of skin of toe (Acute) Atherosclerosis (Acute) Ulcer of extremity due to chronic venous insufficiency (Acute) Left leg swelling (Acute) Hyperthyroidism (Chronic) thyroid ultrasound 03/01/22 right lobe 3 mm cyst in nodule, TI_RADS level 1 , no f/up recommended Left lobe again seen 3.1x2 AP by 2 tranverse cm, TI_RADS level 23 nodule, due to size f/u recommended Hypertension (Chronic) Lung nodule (Acute) Screening for colon cancer (Acute) Right bundle branch block (Acute) Heart murmur, systolic (Acute) Submandibular gland swelling (Acute) Tobacco use disorder (Acute) Vitamin D deficiency (Acute) Nail dystrophy (Acute) Vision changes (Acute) Hypercalcemia (Acute) Hyperlipidemia, unspecified (Acute) Medical History Venous stasis dermatitis Hypercalcemia Vision changes Left inguinal hernia Onychomycosis Hyperlipidemia Thyroid mass Thyroid nodule Venous stasis ulcer limited to breakdown of skin with varicose veins Surgical History Hx of cataract removal with insertion of prosthetic lens History of colonoscopy (~01/2011) S/P left inguinal hernia repair (~03/25/20) H/O vein stripping RLE History of umbilical hernia repair S/P right inguinal hernia repair Family History Mother Heart disease Father Cancer Social History Smoking/Tobacco Use Status: Current every day Tobacco Type: cigarettes Years smoked: 53 Smoking risk assessment performed?: Yes Alcohol Intake: never Drug use: Never Substance use type: does not use Household members: none Current gender identity: male Other: Has a Caregiver- Scarlett Do you feel safe at home: Yes Do you feel safe in your relationship?: Yes Additional Social history: lives alone; has caregiver
[2024-06-10 12:02] LABS: ALT 31 U/L (16-63); AST 24 U/L (15-37); Albumin 3.6 g/dL (3.4-5.0); Alkaline Phosphatase 42 U/L (46-116); Anion Gap 7.7 mmol/L (3-11); BUN 13 mg/dL (7-18); CO2 27.3 mmol/L (21.0-32.0); CREATININE 0.8 mg/dL (0.70-1.30); Calcium 10.3 mg/dL (8.5-10.1); Chloride 109 mmol/L (98-107); Estimated GFR 90.58 (mL/min/1.73m2); Glucose 97 mg/dL (74-106); Lipase 64 U/L (16-77); Sodium 144 mmol/L (136-145); Total Protein 7.7 g/dL (6.4-8.2)
[2024-06-10] MEDS: Omnipaque 350 MG/ML 500 ML BTL-Imaging package 85 ML IJ (12:21)
[2024-06-10] MEDS: Normal Saline - Diluent 50 ML VIAL IJ (12:22)
--- NOTE | 2024-06-10 12:30 | DI.CT_ITS ---
Exam(s) CT ABDOMEN PELVIS W EXAM: CT ABDOMEN PELVIS W CLINICAL HISTORY: diarrhea, abd pain TECHNIQUE: Imaging Protocol: Axial computed tomography images with coronal and sagittal reformatted images were created and reviewed. CONTRAST MATERIAL: Intravenous: Omnipaque 350 Contrast volume:85 mL Oral: No COMPARISON: CT CT CHEST LUNG CANCER SCREEN from 08/11/[address] CHEST WO from 03/29/2024 FINDINGS: ABDOMEN: Lung Bases: Mild dependent atelectasis is present. Liver: Normal density. There are several cysts seen within the liver. The largest measures 1.8 cm. No suspicious hepatic masses are present. Portal, Superior Mesenteric, and Splenic Veins: Unremarkable. Gallbladder and Biliary Tract: No radiodense calculus or dilation. Pancreas: Normal density, no abnormal calcifications or inflammatory process. Spleen: Normal. Adrenals: No masses seen. Kidneys: Normal size, contour and axis. No radiodense stones or obstructive uropathy. There is a simp le cyst in the superior pole of the right kidney. There are several tiny hypodensity seen in the kid neys bilaterally. They are too small for further characterization but likely reflect small cysts. N o follow-up is recommended. Abdominal Aorta: Abdominal portion non-dilated. Atherosclerotic calcification is present. 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 Bowel: There is diverticulosis of the colon without evidence of acute diverticulitis. There is a lar ge diverticulum arising from the duodenum. There is no evidence of bowel obstruction or bowel wall t hickening. The stomach is incompletely distended limiting evaluation. Appendix is unremarkable. Peritoneal Cavity: No ascites, collection or mesenteric inflammatory response. No free air. Lymph Nodes: Within normal limits. Bones: Within normal limits for the patient's age. There is a left convex lumbar scoliosis. Soft Tissues: There are bilateral fat containing inguinal hernias, right greater than left. PELVIS: Bladder: Symmetric distention, no gross wall thickening. Reproductive Organs: Prostate gland is enlarged. Lymph Nodes: Within normal limits. Bones: Within normal limits for the patient's age. IMPRESSION: 1. Colonic diverticulosis is present without evidence of acute diverticulitis. 2. No acute abdominal or pelvic process. 3. Incidental findings in the abdomen and pelvis as described above. RADIATION DOSE DELIVERED: 329.94mGy.cm Total DLP DATA REPOSITORY: All CT scans at this facility are submitted to the National Radiology Data Registry (NRDR) Dose Index Registry (DIR) with the [employer] (ACR). RADIATION OPTIMIZATION: All CT scans at this facility use at least one of these dose optimization te chniques: automated exposure control; mA and/or kV adjustment per patient size (includes targeted exa ms where dose is matched to clinical indication); or iterative reconstruction.
== END 2024-06-10 14:10 | disposition home or self-care (01) ==
PROVIDERS: Emergency Provider Physician Assistant; PCP Physician Assistant Medical
DX: R19.7 Diarrhea, unspecified (principal)
CPT/HCPCS: 80053; 83690; 99285; 74177; 85025; 99284

== ENCOUNTER 2024-06-17 18:23 | Outpatient (REF) | payer MEDICARE, MEDICAID, SELFPAY ==
--- OUTSIDE RECORDS SUMMARY | 2024-06-17 18:29 | XMS_ITS | Encounter Summary ---
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 Edema, unspecified type Amy Herbert DPM [facility] [facility] [address] [place] [address] [facility] [address] [place] [address] Referral ID Status Reason Start Date Expiration Date Visits Requested Visits Authorized [id number] Authorized Consult, Test & Treat 05/31/2024 05/31/2025 1 1 Encounter Details Date Type Department Care Team (Late st Contact Info) Description 05/31/2024 Transcribe Orders eDH Incoming Referrals [phone] Amy Herbert DPM [address] [place] [address] [address] [place], [place] [id number] 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 (Primary Dx); Non-pressure chronic ulcer of left ankle with fat layer exposed; Chronic skin ulcer, unspecified ulcer stage; Edema, unspecified type Social History Tobacco Use Types Packs/Day Years Used Date Smoking Tobacco: Never Assessed Sex and Gender Information Value Date Recorded Sex Assigned at Not on file Gender Identity Not on file Sexual Orientation Not on file documented as of this encounter Plan of Treatment Upcoming Encounters Date Type Department Care Team (Late st Contact Info) Description 07/11/2024 2:30 PM EST [place] [address] Winnie [place]azar, [place] 07/11/2024 3:30 PM EST Office Visit [place] [phone] Neil Sanchez MD [facility] [place] [address] Scheduled Referrals Name Type Priority Associated Diagnoses Orde r Schedule Referral to Vascular Surgery Outpatient Referral Urgent Non-pressure chronic ulcer of left ankle with fat layer exposed Chronic skin ulcer, unspecified ulcer stage 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
--- OUTSIDE RECORDS SUMMARY | 2024-06-17 18:29 | XMS_ITS | Encounter Summary ---
Author Organization [facility] [place] [address] Care Team Providers Care Radio Division Lieutenant Name Role Phone Unavailable Primary Care Provider Unavailabl e Reason for Referral * Diagnostic Test (Routine) - Authorized Specialty Diagnoses / Procedures Referred By Contac t Referred To Contact Diagnoses Varicose veins of left lower extremity, unspecified whether complicated Procedures LE Unilateral Valvular Incomp Study Brianna Burroughs APRN [facility] [place] [address] [facility] [address] [place] [phone] Referral ID Status Reason Start Date Expiration Date Visits Requested Visits Authorized [id number] Authorized Specialty Service Requested 06/04/2025 1 1 Encounter Details Date Type Department Care Team (Late st Contact Info) Description 06/04/2024 Orders [place] [address] Brianna Burroughs INTEGRATED LOGISTICS OPERATIONS MANAGER [facility] [place] [address] Varicose veins of left lower extremity, unspecified whether complicated Social History Tobacco Use Types Packs/Day Years Used Date Smoking Tobacco: Never Assessed Sex and Gender Information Value Date Recorded Sex Assigned at Not on file Gender Identity Not on file Sexual Orientation Not on file documented as of this encounter Plan of Treatment Upcoming Encounters Date Type Department Care Team (Late st Contact Info) Description 07/11/2024 2:30 PM [facility] Tech [place] [address] Winnie Salazar [place] 07/11/2024 3:30 PM EST Office [place] [address] Neil Sanchez MD [facility] [place] [address] documented as of this encounter Visit Diagnoses Diagnosis Varicose veins of left lower extremity, unspecified whether complicated documented in this encounter
--- OUTSIDE RECORDS SUMMARY | 2024-06-17 18:29 | XMS_ITS | Encounter Summary ---
Author Organization [facility] Address [address] [place] [address] Care Team Providers Care Table Filler Name Role Phone Unknown, Provider Primary Care Provider Unava ilable Encounter Details Date Type Department Care Team (Late st Contact Info) Description 11/02/2018 Results Only [facility] [phone] Ji Reyes, [address] [place], [place] [phone] Social History Tobacco Use Types Packs/Day Years Used Date Smoking Tobacco: Never Assessed Sex and Gender Information Value Date Recorded Sex Assigned at Not on file Legal Sex Male 18:34 EST Gender Identity Not on file Sexual Orientation [...] ? YOUNG MOSHER ? Accession #: ? [id number] : ? 1945 (Age: 73) ??M ?Collect Date: ? 11/01/2018 Location: ? [facility] ? Receive Date: ? 11/02/2018 Provider: ? JI REYES DO Copy to: ?PATRICIA PIMENTEL FLIGHT DISPATCHER ? CYTOLOGIC DIAGNOSIS: A. THYROID, LEFT LOBE, [...] cellular enhancement technique. ? End of Report [facility] 11/01/2018 11/02/2018 17: 11 EDT us Ji Reyes DO PATHOLOGY ORDERABLES Fi nal Result [facility] [address] [place] [address] documented in this encounter Visit Diagnoses Not on filedocumented in this encounter Care Teams Table Filler Relationship Specialty Start Date End Date Unknown, Provider, PCP - General 06/11/15 08/06/22 documented as of this encounter
--- OUTSIDE RECORDS SUMMARY | 2024-06-17 18:29 | XMS_ITS | Encounter Summary ---
Author Organization [facility] [place] [address] Care Team Providers Care Supervisor Plasma Name Role Phone Unavailable Primary Care Provider Unavailabl e Encounter Details Date Type Department Care Team (Late st Contact Info) Description 05/31/2024 Transcribe Orders eD Incoming Referrals [phone] Amy Herbert, [facility] [address] [place] [address] [address] [place], [place] [id number] Social History Tobacco Use Types Packs/Day Years [...] PM EST Tech [place] [phone] [place]ie [place], [place] 07/11/2024 3:30 PM EST Office [place] [phone] Neil Sanchez MD [facility] [place] [address] documented as of this encounter Visit Diagnoses Not on filedocumented in this encounter
--- OUTSIDE RECORDS SUMMARY | 2024-06-17 18:29 | XMS_ITS | Encounter Summary ---
Author Organization [facility] Address [address] [place] [address] Care Team Providers Care Bit Welder Name Role Phone Unavailable Primary Care Provider Unavailabl e Encounter Details Date Type Department Care Team (Late st Contact Info) Description 05/21/2008 Before PRISM Converted Visit (Maple) [facility] - Maple conversion [address] [place] [address] Isidra Silva MD [address] [place] [address] [address] [place] [address] Social History Tobacco Use Types [...] ? YOUNG MOSHER ? Accession #: ? [id number] ? : ? 1945 (Age: 62) ??M ? Collect Date: ? 05/21/2008 ? Location: ? [facility] ? Receive Date: ? 05/23/2008 ? Provider: ISIDRA SILVA MD ? Copy to: KANDACE STEPHEN MD ? PIERRE D SABA MD ? [...] Description: ? Received in Judy's fixative labelled [place] and sigmoid at 35 cm is a single piece of tissue that measures 0.4 x 0.3 x 0.3 cm and is submitted as ?? (A). ? Received in Judy's fixative labelled [place] and ascending colon are ? three pieces of tissue that range in size from 0.2 x 0.2 x 0.2 cm to 0.5 x 0.4 x 0.2 cm and are all submitted as (B). ? Received in Judy's fixative labelled [place] and 25 cm is a single piece of tissue that measures 0.2 x 0.2 x 0.2 cm and is submitted as (C). ? Received in Judy's fixative labelled [place] and rectum are two pieces of tissue that both measure 0.3 x 0.3 x 0.3 cm and are submitted as (D). ??(Dr. ? Elke)/tmg ? End of Report ? [facility]AMIN [facility] 05/21/2008 05/23/2008 12: 30 EDT us Isidra Silva MD PATHOLOGY ORDERABLES Final Result [facility] [address] [place] [address] documented in this encounter Visit Diagnoses Not on filedocumented in this encounter
--- OUTSIDE RECORDS SUMMARY | 2024-06-17 18:29 | XMS_ITS | Referral Summary ---
Author Organization [facility] Address [address] [place] [address] Care Team Providers Care Database Consultant Name Role Phone Dede Garcia NOCTURNIST Primary Care Provider [phone] Social History Tobacco Use Types Packs/Day Years Used Date Smoking Tobacco: Never Assessed Interpersonal Safety Answer Date Record ed Physically Hurt Never 03/08/2020 Verbally Threaten Not on file 03/08/2020 Sex and Gender Information Value Date Recorded Sex Assigned at Not on file Legal Sex Male 18:34 EST Gender Identity Not on file Sexual Orientation Not on file Plan of Treatment Not on file Insurance [place] MED[place]ARE [place] Care Teams Database Consultant Relationship Specialty Start Date End Date Dede Garcia, NOCTURNIST [address] [place] [phone] PCP - General 08/07/22
--- OUTSIDE RECORDS SUMMARY | 2024-06-17 18:29 | XMS_ITS | Clinical Summary ---
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 (Primary Dx); Non-pressure chronic ulcer of left ankle with fat layer exposed; Chronic skin ulcer, unspecified ulcer stage; Edema, unspecified type 05/31/2024 Transcribe Orders eD Incoming Referrals [phone] Amy Herbert DPM from Last 3 Months Social History Tobacco Use Types Packs/Day Years Used Date Smoking Tobacco: Never Assessed Sex and Gender Information Value Date Recorded Sex Assigned at Not on file Gender Identity Not on file Sexual Orientation Not on file Plan of Treatment Upcoming Encounters Date Type Department Care Team (Late st Contact Info) Description 07/11/2024 2:30 PM EST Tech [place] [address] Winnie Salazar [place] 07/11/2024 3:30 PM EST Office [place] [address] Neil Sanchez MD [facility] DR VASCULAR SURGERY [place], [place] [id number] Health Maintenance Due Date Last Done Comments Hepatitis C Screening 1963 Tetanus/Diphtheria/Pertussis Vaccines (1 - Tdap) 06/21 Zoster vaccine (1 of 2) 1995 Advance Directive 2000 Pneumoccocal Vaccine: 65+ (1 of 1 - PCV) 2010 Covid-19 Vaccine (1 - 2023- season) 2024 Influenza (Flu) vaccine (1 o f 1 - Influenza standard series) 04/07/[address] [place] [address]
--- OUTSIDE RECORDS SUMMARY | 2024-06-17 18:29 | XMS_ITS | Encounter Summary ---
Author Organization [facility] Address [address] [place] [address] Care Team Providers Care Vice President Sales Name Role Phone Jose Dede Townsend COACH WIRER Primary Care Provider [phone] Encounter Details Date Type Department Care Team (Late st Contact Info) Description 08/22/2022 Lab Requisition [facility] Pathology & Laboratory Medicine - [facility] [address] [place] [address] Deon Salcedo MD Encounter for screening for [...] Associated Diagnosis Comments SURGICAL PATHOLOGY Today 08/22/2022 9:30 EST Encounter for screening for malignant neoplasm [...] management options, if applicable. 08/24/2022 12:40 EST [facility] Final Diagnosis A. COLON, 75 CM, POLYP: Benign mucosal prolapse polyp. Deeper sections examined. B. COLON, 65 CM, POLYP: Changes consistent with benign lymphoid polyp with features of prolapse. Deeper sections examined. C. RECTUM, MID, POLYP: Hyperplastic polyp with features of prolapse. Deeper sections examined. 08/24/2022 12:40 [facility] Attestation By the signature below, the attending physician certifies that they have 1) personally conducted a gross and/or microscopic examination of the described specimen(s), and/or personally interpreted the results of laboratory testing of the described specimen(s), and 2) personally rendered or confirmed the above diagnosis. 08/24/2022 12:40 [facility] at 1240 Clinical History Screening colonoscopy 08/24/2022 12:40 [facility] Gross Description A. Received in [...] C1. GRZEGORZ CHIU(ASCP) 08/22/2022 17:27 08/24/2022 12:40 [facility] Performing Lab [facility] 08/24/2022 12:40 [facility] Scanned Images 08/24/2022 12:40 [facility] Tissue SPECIMEN FROM RECTUM / Unknown 08/22/2022 9:30 EST 08/22/2022 17:14 EST Tissue specimen (specimen) COLON STRUCTURE / Unknown 08/22/2022 9:30 EST 08/22/2022 17:14 EST Tissue specimen (specimen) SPECIMEN FROM RECTUM / Unknown 08/22/2022 9:30 EST 08/22/2022 17:14 EST us Deon Salcedo MD PATHOLOGY ORDERABLES Final Resul t [facility] [address] [place] [address] documented in this encounter Visit Diagnoses Diagnosis Encounter for screening for malignant neoplasm of colon Special screening for malignant neoplasms, colon documented in this encounter Care Teams Vice President Sales Relationship Specialty Start Date End Date Dede Garcia, COACH WIRER [address] [place] [address] PCP - General 08/07/22 documented as of this encounter
--- OUTSIDE RECORDS SUMMARY | 2024-06-17 18:29 | XMS_ITS | Encounter Summary ---
Author Organization [facility] Address [address] [place] [address] Care Team Providers Care Organ Tuner Electronic Name Role Phone Unknown, Provider MD Primary Care Provider Unava ilable Encounter Details Date Type Department Care Team (Latest Contact Info) Description 11/01/2018 15:39 EDT - 11/01/2018 23:59 EDT Hospital Encounter [address] [address] Unknown, Provider, Discharge Disposition: Home or Self [...] Code Departure Means Destination Home or Self Detention documented in this encounter Plan of Treatment Not on file documented as of this encounter Visit Diagnoses Not on filedocumented in this encounter Care Teams Organ Tuner Electronic Relationship Specialty Start Date End Date Unknown, Provider, PCP - General 06/11/15 08/06/22 documented as of this encounter
--- OUTSIDE RECORDS SUMMARY | 2024-06-17 18:29 | XMS_ITS | Clinical Summary ---
Author Organization [facility] Address [address] [place] [address] Care Team Providers Care Detective Youth Bureau Name Role Phone Dede Garcia CALENDER TENDER Primary Care Provider [phone] Social History Tobacco Use Types Packs/Day Years [...] 2005 Fall Risk Screening 2010 COVID-19 Vaccine (2022-24 season) 2023 [place] Care Teams Detective Youth Bureau Relationship Specialty Start Date End Date Dede Garcia NP [address] [place] [phone] PCP - General 08/07/22
--- OUTSIDE RECORDS SUMMARY | 2024-06-17 18:29 | XMS_ITS | Encounter Summary ---
Author Organization [facility] Address [address] [place] [address] Care Team Providers Care Author'S Agent Name Role Phone Unknown, Provider Primary Care Provider Dede Alonso INSURANCE LOSS CONTROL SURVEYOR Primary Care Provider [phone] Encounter Details Date Type Department Care Team (Late st Contact Info) Description 03/21/2020 Lab Requisition [facility] Pathology & Laboratory Medicine - [facility] [address] [place] [address] Outr Resulting Lab, Provider Social History Tobacco [...] rt-PCR Result NEGATIVE Negative 03/22/2020 22:54 EDT [facility] Comment: 2019-novel Coronavirus [...] in accordance with CLIA regulations, College of [employer] Pathologists (CAP) guidelines (Oct 24, 2019), and FDA guidance (Oct 05, 2019). This test is only for use under the Food and Drug Administration's Emergency Use Authorization. Swab ENTIRE NASOPHARYNX / Unknown 03/21/2020 8:32 EDT 03/22/2020 0:25 EDT us Provider Outr Resulting Lab MICROBIOLOGY - GENER AL ORDERABLES Final Result [facility] [place], [place] * COVID-19 TESTING (03/21/2020 8:32 EDT) [facility] COVID-19 rt-PCR Result NEGATIVE Negative 03/22/2020 23:33 EDT [facility] Comment: 2019-novel Coronavirus (2019-nCoV) not detected [...] in accordance with CLIA regulations, College of [employer] Pathologists (CAP) guidelines (Oct 24, 2019), and FDA guidance (Oct 05, 2019). This test is only for use under the Food and Drug Administration's Emergency Use Authorization. Performing Lab [facility] 03/22/2020 23:33 EDT [facility] Swab 03/21/2020 8:32 EDT 03/22/2020 0:25 EDT us Provider Outr Resulting Lab MICROBIOLOGY - GENER AL ORDERABLES Final Result [facility] [address] [place] [address] [facility] [place], [place] documented in this encounter Visit Diagnoses Not on filedocumented in this encounter Care Teams Author'S Agent Relationship Specialty Start Date End Date Unknown, Provider, PCP - General 06/11/15 08/06/22 Dede Garcia NP [address] [place] [phone] PCP - General 08/07/22 documented as of this encounter
--- OUTSIDE RECORDS SUMMARY | 2024-06-17 18:29 | XMS_ITS | Encounter Summary ---
Author Organization [facility] [place] [address] [place] [address] Care Team Providers Care Product Architect Name Role Phone Unavailable Primary Care Provider Unavailabl e Encounter Details Date Type Department Care Team (Latest Contact Info) Description 01/18/2021 9:23 PM EDT - 01/18/2021 11:59 PM EDT Hospital [place] [address] Discharge Disposition: Home Social History Tobacco Use [...] PM EST Tech [place] [address] Winn[place] 07/11/2024 3:30 PM EST Office [place] [phone] Neil Sanchez MD [facility] [place] [address] documented as of this encounter Procedures Procedure Name Priority Date/Time Associated Diagnosis Comments T3, FREE Routine 01/18/2021 12:42 PM EDT T3 TOTAL Routine 01/18/2021 12:42 PM EDT documented in this encounter Results * T3, free (01/18/2021 12:42 PM EDT) Free T3 3.5 2.0 - 4.4 pg/mL [facility] Blood Venous Draw / Unknown 01/18/2021 12:42 PM EDT 01/18/2021 9:33 PM EDT Narrative Resulting Agency Comment Spec In Lab Leonardo Puri MD CHEMISTRY ORDERABLES Performing Organization Address City/[facility]/ZIP Co de Phone Number [facility] [address] * T3 Total (01/18/2021 12:42 PM EDT) T3 Total 123 75 - 170 ng/dL [facility] Blood Venous Draw / Unknown 01/18/2021 12:42 PM EDT 01/18/2021 9:33 PM EDT Narrative Resulting Agency Comment Spec In Lab Leonardo Puri MD CHEMISTRY ORDERABLES Performing Organization Address City/[facility]/ZIP Co de Phone Number [facility] [place] [address] documented in this encounter Visit Diagnoses Not on filedocumented in this encounter
--- OUTSIDE RECORDS SUMMARY | 2024-06-17 18:29 | XMS_ITS | Encounter Summary ---
Author Organization [facility] Address [address] [place] [address] Care Team Providers Care Blogs Manager Name Role Phone Unknown, Provider Primary Care Provider Dede Alonso GEOLOGY ASSOCIATE Primary Care Provider [phone] Encounter Details Date Type Department Care Team (Late st Contact Info) Description 12/27/2019 Lab Requisition [facility] Pathology & Laboratory Medicine - [address] [address] Outr Resulting Lab, Provider Social History Tobacco [...] 2.8 - 5.3 pg/mL 12/27/2019 16:20 EDT [facility] Blood VENOUS BLOOD / Unknown 12/27/2019 10:28 EDT 12/27/2019 15:51 EDT us Provider Outr Resulting Lab CHEMISTRY & BLOOD GA S ORDERABLES Final Result [facility] [address] [place] [address] documented in this encounter Visit Diagnoses Not on filedocumented in this encounter Care Teams Blogs Manager Relationship Specialty Start Date End Date Unknown, Provider, PCP - General 06/11/15 08/06/22 Dede Garcia, TAWANDA [address] [place] [phone] PCP - General 08/07/22 documented as of this encounter
[2024-06-17 19:53] LABS: Anion Gap 8.2 mmol/L (3-11); BUN 16 mg/dL (7-18); CO2 28.8 mmol/L (21.0-32.0); CREATININE 0.8 mg/dL (0.70-1.30); Calcium 9.9 mg/dL (8.5-10.1); Chloride 109 mmol/L (98-107); Estimated GFR 90.58 (mL/min/1.73m2); Glucose 87 mg/dL (74-106); Magnesium 2.1 mg/dL (1.8-2.4); Potassium 4.8 mmol/L (3.5-5.1); Sodium 146 mmol/L (136-145); TSH 0.37 uIU/mL (0.36-3.74)
[2024-06-18 22:19] LABS: T3, Total 137 ng/dL (97-169)
== END 2024-06-17 18:24 | disposition home or self-care (01) ==
LOC: NCHCN 18:23
PROVIDERS: PCP Physician Assistant Medical; Visit Provider Nurse Practitioner Family
DX: R19.7 Diarrhea, unspecified (principal); E83.52 Hypercalcemia; E05.90 Thyrotoxicosis, unspecified without thyrotoxic crisis or storm
CPT/HCPCS: 80048; 83735; 84439; 84443; 84480

== ENCOUNTER → 2024-06-20 13:36 | Outpatient (BNVA) | payer MEDICARE, MEDICAID, SELFPAY | PROVIDERS: PCP Physician Assistant Medical; Visit Provider Podiatrist | DX: L97.322 Non-pressure chronic ulcer of left ankle with fat layer exposed (principal); I83.023 Varicose veins of left lower extremity with ulcer of ankle; I87.2 Venous insufficiency (chronic) (peripheral); R60.0 Localized edema; F17.200 Nicotine dependence, unspecified, uncomplicated | CPT/HCPCS: 11042; 29580; 29850 ==

== ENCOUNTER 2024-06-25 15:12 | Outpatient (REF) | payer MEDICARE, MEDICAID, SELFPAY ==
[2024-06-25 13:41] LABS: C Diff PCR Negative (Negative)
--- OUTSIDE RECORDS SUMMARY | 2024-06-25 15:14 | XMS_ITS | Referral Summary ---
Author Organization [facility] Address [address] [place] [address] Care Team Providers Care Automobile Seat Cover Installer Name Role Phone Dede Garcia BUSINESS DEVELOPMENT ENGINEER Primary Care Provider [phone] Encounters Date Type Department Care Team Description 06/25/2024 Lab Requisition [facility] Pathology & Laboratory [address] [address] Outr Resulting Lab, Provider 06/18/2024 Lab Requisition [facility] Pathology & Laboratory [facility] [address] [place] [address] Outr Resulting Lab, Provider from Last 3 Months Social History Tobacco [...] file Plan of Treatment Not on file Procedures Procedure Name Priority Date/Time Associated Diagnosis Comments T3, TOTAL Routine 06/17/2024 14:55 EST from Last 3 Months Results * T3, TOTAL (06/17/2024 14:55 EST) T3, Total 137 97 - 169 ng/dL 06/18/2024 22:13 EST [facility] Blood VENOUS BLOOD / Unknown 06/17/2024 14:55 EST 06/18/2024 21:22 EST us Provider Outr Resulting Lab CHEMISTRY & BLOOD GA S ORDERABLES Final Result [facility] [address] [place] [address] from Last 3 Months Insurance [place] Care Teams Automobile Seat Cover Installer Relationship Specialty Start Date End Date Dede Garcia, BUSINESS DEVELOPMENT ENGINEER [address] [place] [phone] PCP - General 08/07/22
--- OUTSIDE RECORDS SUMMARY | 2024-06-25 15:14 | XMS_ITS | Encounter Summary ---
Author Organization [facility] Address [address] [place] [address] Care Team Providers Care Combine Operator Name Role Phone Jose Dede Cary RUG WASHER Primary Care Provider [phone] Encounter Details Date Type Department Care Team (Late st Contact Info) Description 08/22/2022 Lab Requisition [facility] Pathology & Laboratory Medicine - [facility] [address] [place] [address] Deon Salcedo MD Encounter for screening for [...] management options, if applicable. 08/24/2022 12:40 EST [facility] Final Diagnosis A. COLON, 75 CM, POLYP: Benign mucosal prolapse polyp. Deeper sections examined. B. COLON, 65 CM, POLYP: Changes consistent with benign lymphoid polyp with features of prolapse. Deeper sections examined. C. RECTUM, MID, POLYP: Hyperplastic polyp with features of prolapse. Deeper sections examined. 08/24/2022 12:40 [facility] Attestation By the signature below, the attending physician certifies that they have 1) personally conducted a gross and/or microscopic examination of the described specimen(s), and/or personally interpreted the results of laboratory testing of the described specimen(s), and 2) personally rendered or confirmed the above diagnosis. 08/24/2022 12:40 [facility] at 1240 Clinical History Screening colonoscopy 08/24/2022 12:40 [facility] Gross Description A. Received in [...] C1. GRZEGORZ CHIU(ASCP) 08/22/2022 17:27 08/24/2022 12:40 [facility] Performing Lab [facility] 08/24/2022 12:40 [facility] Scanned Images 08/24/2022 12:40 [facility] Tissue SPECIMEN FROM RECTUM / Unknown 08/22/2022 9:30 EST 08/22/2022 17:14 EST Tissue specimen (specimen) COLON STRUCTURE / Unknown 08/22/2022 9:30 EST 08/22/2022 17:14 EST Tissue specimen (specimen) SPECIMEN FROM RECTUM / Unknown 08/22/2022 9:30 EST 08/22/2022 17:14 EST us Deon Salcedo MD PATHOLOGY ORDERABLES Final Resul t [facility] [address] [place] [address] documented in this encounter Visit Diagnoses Diagnosis Encounter for screening for malignant neoplasm of colon Special screening for malignant neoplasms, colon documented in this encounter Care Teams Combine Operator Relationship Specialty Start Date End Date Dede Garcia, RUG WASHER [address] [place] [phone] PCP - General 08/07/22 documented as of this encounter
--- OUTSIDE RECORDS SUMMARY | 2024-06-25 15:14 | XMS_ITS | Encounter Summary ---
Author Organization [facility] Address [address] [place] [address] Care Team Providers Care Utilities Estimator And Drafter Name Role Phone Dede Garcia WEDDING CONSULTANT Primary Care Provider [phone] Encounter Details Date Type Department Care Team (Late st Contact Info) Description 06/18/2024 Lab Requisition [facility] Pathology & Laboratory Medicine - [facility] [address] [place], [place] [address] Outr Resulting Lab, Provider Social History Tobacco [...] Comments T3, TOTAL Routine 06/17/2024 14:55 EST documented in this encounter Results * T3, TOTAL (06/17/2024 14:55 EST) T3, Total 137 97 - 169 ng/dL 06/18/2024 22:13 EST [facility] Blood VENOUS BLOOD / Unknown 06/17/2024 14:55 EST 06/18/2024 21:22 EST us Provider Outr Resulting Lab CHEMISTRY & BLOOD GA S ORDERABLES Final Result [facility] [address] [place] [address] documented in this encounter Visit Diagnoses Not on filedocumented in this encounter Care Teams Utilities Estimator And Drafter Relationship Specialty Start Date End Date Dede Garcia NP [address] [place] [phone] PCP - General 08/07/22 documented as of this encounter
--- OUTSIDE RECORDS SUMMARY | 2024-06-25 15:14 | XMS_ITS | Encounter Summary ---
Author Organization [facility] Address [address] [place] [address] Care Team Providers Care Adobe Block Maker Name Role Phone Dede Garcia CLEANER OPERATOR Primary Care Provider Encounter Details Date Type Department Care Team (Late st Contact Info) Description 06/25/2024 Lab Requisition [facility] Pathology & Laboratory Medicine - [facility] [address] [place] [address] Outr Resulting Lab, Provider Social History Tobacco [...] as of this encounter Plan of Treatment Scheduled Orders Name Type Priority Associated Diagnoses Orde r Schedule FECAL BACTERIAL PATHOGENS BY PCR Microbiology Routine Ordered: 2023 documented as of this encounter Visit Diagnoses Not on filedocumented in this encounter Care Teams Adobe Block Maker Relationship Specialty Start Date End Date Dede Garcia, TAWANDA [address] [place] [address] PCP - General 08/07/22 documented as of this encounter
--- OUTSIDE RECORDS SUMMARY | 2024-06-25 15:14 | XMS_ITS | Encounter Summary ---
Author Organization [facility] [place] [address] Care Team Providers Care Fish Hatchery Specialist Name Role Phone Unavailable Primary Care Provider Unavailabl e Reason for Referral * Diagnostic Test (Routine) - Authorized Specialty Diagnoses / Procedures Referred By Contac t Referred To Contact Diagnoses Varicose veins of left lower extremity, unspecified whether complicated Procedures LE Unilateral Valvular Incomp Study Brianna Burroughs APRN [facility] [place] [address] [facility] [address] [place] [phone] Referral ID Status Reason Start Date Expiration Date Visits Requested Visits Authorized [id number] Authorized Specialty Service Requested 06/04/2025 1 1 Encounter Details Date Type Department Care Team (Late st Contact Info) Description 06/04/2024 Orders Only [place] [address] Brianna Burroughs FOOD CRITIC [facility] [place] [address] Varicose veins of left lower extremity, unspecified [...] st Contact Info) Description 07/11/2024 2:30 PM [facility] Tech [place] [address] Winnie Salazar [place] 07/11/2024 3:30 PM EST Office Visit [place] [address] Neil Sanchez MD [facility] [place] [place] [address] documented as of this encounter Visit Diagnoses Diagnosis Varicose veins of left lower extremity, unspecified whether complicated documented in this encounter
--- OUTSIDE RECORDS SUMMARY | 2024-06-25 15:14 | XMS_ITS | Encounter Summary ---
[place] [address] Care Team Providers Care Sales And Marketing Professional Name Role Phone Unavailable Primary Care Provider [...] exposed Edema, unspecified type Amy Herbert DPM [facility] [address] [place] [address] [facility] [address] [place] [address] Referral ID Status Reason Start Date Expiration Date Visits Requested Visits Authorized [id number] Authorized Consult, Test & Treat 05/31/2024 05/31/2025 1 1 Encounter Details Date Type Department Care Team (Late st Contact Info) Description 05/31/2024 Transcribe Orders eDH Incoming Referrals [phone] Amy Herbert DPM [address] [place] [address] [address] [place], [place] [id number] Varicose veins of left lower extremity with [...] PM EST Tech [place] [address] Winnie Salazar, [place] 07/11/2024 3:30 PM EST Office [place] [phone] Neil Sanchez MD [facility] [place] [address] Scheduled Referrals Name Type Priority Associated Diagnoses [...]
--- OUTSIDE RECORDS SUMMARY | 2024-06-25 15:14 | XMS_ITS | Encounter Summary ---
Author Organization [facility] Address [address] [place] [address] Care Team Providers Care Organic Section Technical Lead Name Role Phone Unknown, Provider Primary Care Provider Dede Alonso AFFILIATE MARKETING SPECIALIST Primary Care Provider [phone] Encounter Details Date Type Department Care Team (Late st Contact Info) Description 12/27/2019 Lab Requisition [facility] Pathology & Laboratory Medicine - [facility] [address] [place] [address] Outr Resulting Lab, Provider Social History Tobacco [...] 2.8 - 5.3 pg/mL 12/27/2019 16:20 EDT [facility] Blood VENOUS BLOOD / Unknown 12/27/2019 10:28 EDT 12/27/2019 15:51 EDT us Provider Outr Resulting Lab CHEMISTRY & BLOOD GA S ORDERABLES Final Result [facility] [address] [place] [address] documented in this encounter Visit Diagnoses Not on filedocumented in this encounter Care Teams Organic Section Technical Lead Relationship Specialty Start Date End Date Unknown, Provider, PCP - General 06/11/15 08/06/22 Dede Garcia, TAWANDA [address] [place] [phone] PCP - General 08/07/22 documented as of this encounter
--- OUTSIDE RECORDS SUMMARY | 2024-06-25 15:14 | XMS_ITS | Clinical Summary ---
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 (Primary Dx); Non-pressure chronic ulcer of left ankle with fat layer exposed; Chronic skin ulcer, unspecified ulcer stage; Edema, unspecified type 05/31/2024 Transcribe Orders eD Incoming Referrals [phone] Amy Herbert DPM from Last 3 Months [...] PM EST Tech Visit [place] [address] Winnie Salazar [place] 07/11/2024 3:30 PM EST Office [place] [address] Neil Sanchez MD [facility] [address] VASCULAR SURGERY [place], [place] [phone] Health Maintenance Due Date Last Done Comments Hepatitis C Screening 1963 Tetanus/Diphtheria/Pertussis Vaccines (1 - Tdap) 06/21 Zoster vaccine (1 of 2) 1995 Advance Directive 2000 Pneumoccocal Vaccine: 65+ (1 of 1 - PCV) 2010 RSV Vaccine (1 - 1-dose 75+ series) 2020 Covid-19 Vaccine (1 - 2023- season) 2024 Influenza (Flu) vaccine (1 o f 1 - Influenza standard series) 04/07/2024
--- OUTSIDE RECORDS SUMMARY | 2024-06-25 15:14 | XMS_ITS | Encounter Summary ---
Author Organization [facility] Address [address] [place] [address] Care Team Providers Care Services Rep Name Role Phone Unknown, Provider Primary Care Provider Unava ilable Encounter Details Date Type Department Care Team (Late st Contact Info) Description 11/02/2018 Results Only [facility] [phone] Ji Reyes, [address] [place], [place] [id number] Social History Tobacco Use Types Packs/Day Years [...] ? YOUNG MOSHER ? Accession #: ? [id number] : ? 1945 (Age: 73) ??M ?Collect Date: ? 11/01/2018 Location: ? [facility] ? Receive Date: ? 11/02/2018 Provider: ? JI REYES DO Copy to: ?PATRICIA PIMENTEL RETURNED GOODS INSPECTOR ? CYTOLOGIC DIAGNOSIS: A. THYROID, LEFT LOBE, [...] cellular enhancement technique. ? End of Report [facility] 11/01/2018 11/02/2018 17: 11 EDT us Ji Reyes DO PATHOLOGY ORDERABLES Fi nal Result [facility] [address] [place] [address] documented in this encounter Visit Diagnoses Not on filedocumented in this encounter Care Teams Services Rep Relationship Specialty Start Date End Date Unknown, Provider, PCP - General 06/11/15 08/06/22 documented as of this encounter
--- OUTSIDE RECORDS SUMMARY | 2024-06-25 15:14 | XMS_ITS | Clinical Summary ---
Author Organization [facility] Address [address] [place] [address] Care Team Providers Care Developer Designer Name Role Phone VikvicenteDede Vicente [employer] Primary Care Provider [phone] Encounters Date Type Department Care Team Description 06/25/2024 Lab Requisition [facility] Pathology & Laboratory [address] [address] Outr Resulting Lab, Provider 06/18/2024 Lab Requisition [facility] Pathology & Laboratory [facility] [address] [place] [address] Outr Resulting Lab, Provider from Last 3 [...] Last Done Comments Hepatitis C Screen 1945 Fall Risk Screening 2010 RSV Immunization ( o r 60+ Years) (1 - 1-dose 75+ series) 2020 COVID-19 Vaccine (2023- season) 2024 Procedures Procedure Name Priority Date/Time Associated Diagnosis Comments T3, TOTAL Routine 06/17/2024 14:55 EST from Last 3 Months Results * T3, TOTAL (06/17/2024 14:55 EST) T3, Total 137 97 - 169 ng/dL 06/18/2024 22:13 EST [facility] Blood VENOUS BLOOD / Unknown 06/17/2024 14:55 EST 06/18/2024 21:22 EST us Provider Outr Resulting Lab CHEMISTRY & BLOOD GA S ORDERABLES Final Result [facility] [address], [place] [id number] from Last 3 Months Insurance [place] Care Teams Developer Designer Relationship Specialty Start Date End Date Dede Garcia, TAWANDA [address] [place] [phone] PCP - General 08/07/22
--- OUTSIDE RECORDS SUMMARY | 2024-06-25 15:14 | XMS_ITS | Encounter Summary ---
Author Organization [facility] Address [address] [place] [address] Care Team Providers Care Range Manager Name Role Phone Unknown, Provider Primary Care Provider Dede Alonso RAILROAD SIGNAL TECHNICIAN Primary Care Provider [phone] Encounter Details Date Type Department Care Team (Late st Contact Info) Description 03/21/2020 Lab Requisition [place] [facility] Medicine - [facility] [address] [place] [address] Outr Resulting Lab, Provider Social History Tobacco [...] rt-PCR Result NEGATIVE Negative 03/22/2020 22:54 EDT [facility] Comment: 2019-novel Coronavirus (2019-nCoV) [...] in accordance with CLIA regulations, [employer] (CAP) guidelines (Oct 24, 2019), and FDA guidance (Oct 05, 2019). This test is only for use under the Food and Drug Administration's Emergency Use Authorization. Swab ENTIRE NASOPHARYNX / Unknown 03/21/2020 8:32 EDT 03/22/2020 0:25 EDT us Provider Outr Resulting Lab MICROBIOLOGY - GENER AL ORDERABLES Final Result [facility] [place] * COVID-19 TESTING (03/21/2020 8:32 EDT) Pathologist [facility] COVID-19 rt-PCR Result NEGATIVE Negative 03/22/2020 23:33 EDT [facility] Comment: 2019-novel Coronavirus (2019-nCoV) [...] in accordance with CLIA regulations, [employer] (CAP) guidelines (Oct 24, 2019), and FDA guidance (Oct 05, 2019). This test is only for use under the Food and Drug Administration's Emergency Use Authorization. Performing Lab [facility] 03/22/2020 23:33 EDT [facility] Swab 03/21/2020 8:32 EDT 03/22/2020 0:25 EDT us Provider Outr Resulting Lab MICROBIOLOGY - GENER AL ORDERABLES Final Result [facility] [address] [place] [address] [facility] [place] documented in this encounter Visit Diagnoses Not on filedocumented in this encounter Care Teams Range Manager Relationship Specialty Start Date End Date Unknown, Provider, PCP - General 06/11/15 08/06/22 Dede Garcia NP [address] [place] [address] PCP - General 08/07/22 documented as of this encounter
--- OUTSIDE RECORDS SUMMARY | 2024-06-25 15:14 | XMS_ITS | Encounter Summary ---
Author Organization [facility] Address [address] [place] [address] Care Team Providers Care Parachute Panel Joiner Name Role Phone Unavailable Primary Care Provider Unavailabl e Encounter Details Date Type Department Care Team (Late st Contact Info) Description 05/21/2008 Before PRISM Converted Visit (Maple) [facility] - Maple conversion [address] [place] [address] Isidra Silva MD [address] [place] [address] [address] [place] [address] Social History Tobacco Use Types [...] ? YOUNG MOSHER ? Accession #: ? [id number] ? : ? 1945 (Age: 62) ??M [...] Description: ? Received in Judy's fixative labelled [place] and sigmoid at 35 cm is a single piece of tissue that measures 0.4 x 0.3 x 0.3 cm and is submitted as ?? (A). ? Received in Judy's fixative labelled [place] and ascending colon are ? three pieces of tissue that range in size from 0.2 x 0.2 x 0.2 cm to 0.5 x 0.4 x 0.2 cm and are all submitted as (B). ? Received in Judy's fixative labelled [place] and 25 cm is a single piece of tissue that measures 0.2 x 0.2 x 0.2 cm and is submitted as (C). ? Received in Son's fixative labelled [place] and rectum are two pieces of tissue that both measure 0.3 x 0.3 x 0.3 cm and are submitted as (D). ??(Dr. ? Elke)/tmg ? End of Report ? JAMIN JUNIOR 05/21/2008 05/23/2008 12: 30 EDT us Isidra Silva MD PATHOLOGY ORDERABLES Final Result [facility] [address] [place] [address] documented in this encounter Visit Diagnoses Not on filedocumented in this encounter
--- OUTSIDE RECORDS SUMMARY | 2024-06-25 15:14 | XMS_ITS | Encounter Summary ---
Author Organization [facility] [place] [address] Care Team Providers Care Ratings Analyst Name Role Phone Unavailable Primary Care Provider Unavailabl e Encounter Details Date Type Department Care Team (Late st Contact Info) Description 05/31/2024 Transcribe Orders eD Incoming Referrals [phone] Amy Herbert, [facility] [address] [place] [address] [address] [place], [place] [id number] Social History Tobacco Use Types Packs/Day Years [...] PM EST Tech [place] [phone] [address] [place], [place] 07/11/2024 3:30 PM EST Office [place] [phone] Neil Sanchez MD [facility] [place] [address] documented as of this encounter Visit Diagnoses Not on filedocumented in this encounter
--- OUTSIDE RECORDS SUMMARY | 2024-06-25 15:14 | XMS_ITS | Encounter Summary ---
Author Organization [facility] Address [address] [place] [address] Care Team Providers Care Digital Marketing Manager Name Role Phone Unknown, Provider MD Primary Care Provider Unava ilable Encounter Details Date Type Department Care Team (Latest Contact Info) Description 11/01/2018 15:39 EDT - 11/01/2018 23:59 EDT Hospital Encounter [address] [address] Unknown, Provider, Discharge Disposition: Home or Self [...] Code Departure Means Destination Home or Self [facility] documented in this encounter Plan of Treatment Not on file documented as of this encounter Visit Diagnoses Not on filedocumented in this encounter Care Teams Digital Marketing Manager Relationship Specialty Start Date End Date Unknown, Provider, PCP - General 06/11/15 08/06/22 documented as of this encounter
--- OUTSIDE RECORDS SUMMARY | 2024-06-25 15:14 | XMS_ITS | Encounter Summary ---
Author Organization [facility] [place] [address] Care Team Providers Care Cone Sewer Name Role Phone Unavailable Primary Care Provider Unavailabl e Encounter Details Date Type Department Care Team (Latest Contact Info) Description 01/18/2021 9:23 PM EDT - 01/18/2021 11:59 PM EDT Hospital [place] [address] Discharge Disposition: Home Social History Tobacco Use [...] PM EST Tech [place] [address] Winnie Salazar [place] 07/11/2024 3:30 PM EST Office [place] [phone] Neil Sanchez MD [facility] [place] [address] documented as of this encounter Procedures Procedure Name Priority Date/Time Associated Diagnosis Comments T3, FREE Routine 01/18/2021 12:42 PM EDT T3 TOTAL Routine 01/18/2021 12:42 PM EDT documented in this encounter Results * T3, free (01/18/2021 12:42 PM EDT) Free T3 3.5 2.0 - 4.4 pg/mL [facility] Blood Venous Draw / Unknown 01/18/2021 12:42 PM EDT 01/18/2021 9:33 PM EDT Narrative Resulting Agency Comment Spec In Lab Leonardo Puri MD CHEMISTRY ORDERABLES Performing Organization Address City/[facility]/ZIP Co de Phone Number [facility] [place] [address] * T3 Total (01/18/2021 12:42 PM EDT) T3 Total 123 75 - 170 ng/dL [facility] Blood Venous Draw / Unknown 01/18/2021 12:42 PM EDT 01/18/2021 9:33 PM EDT Narrative Resulting Agency Comment Spec In Lab Leonardo Puri MD CHEMISTRY ORDERABLES Performing Organization Address City/[facility]/ZIP Co de Phone Number [facility] [place] [address] documented in this encounter Visit Diagnoses Not on filedocumented in this encounter
[2024-06-25 20:41] LABS: Campylobacter PCR Negative (Negative); Salmonella PCR Negative (Negative); Shiga Toxin PCR Negative (Negative); Shigella/Enteroinvasive Ecoli Negative (Negative)
== END 2024-06-25 15:13 | disposition home or self-care (01) ==
LOC: NCHCN 15:12
PROVIDERS: PCP Physician Assistant Medical; Visit Provider Nurse Practitioner Family
DX: R19.7 Diarrhea, unspecified (principal)
CPT/HCPCS: 87493; 87505; 83630; 87177

== ENCOUNTER → 2024-09-05 10:06 | Outpatient (BNVA) | payer MEDICARE, MEDICAID, SELFPAY | PROVIDERS: PCP Physician Assistant Medical; Referring Provider Physician Assistant Medical; Visit Provider Podiatrist | DX: R60.0 Localized edema (principal); I83.023 Varicose veins of left lower extremity with ulcer of ankle; L97.322 Non-pressure chronic ulcer of left ankle with fat layer exposed; I87.2 Venous insufficiency (chronic) (peripheral); F17.200 Nicotine dependence, unspecified, uncomplicated; B35.1 Tinea unguium; L60.3 Nail dystrophy; I73.89 Other specified peripheral vascular diseases; R09.89 Other specified symptoms and signs involving the circulatory and respiratory systems; L60.2 Onychogryphosis; L60.8 Other nail disorders | CPT/HCPCS: 11721 ==

== ENCOUNTER → 2025-03-18 09:20 | Outpatient (BNVA) | payer MEDICARE, MEDICAID, SELFPAY | PROVIDERS: PCP Physician Assistant Medical; Referring Provider Physician Assistant Medical; Visit Provider Podiatrist | DX: I83.023 Varicose veins of left lower extremity with ulcer of ankle (principal); L97.322 Non-pressure chronic ulcer of left ankle with fat layer exposed; I87.2 Venous insufficiency (chronic) (peripheral); I80.02 Phlebitis and thrombophlebitis of superficial vessels of left lower extremity; R60.0 Localized edema; F17.200 Nicotine dependence, unspecified, uncomplicated; R09.89 Other specified symptoms and signs involving the circulatory and respiratory systems; L65.9 Nonscarring hair loss, unspecified; R20.8 Other disturbances of skin sensation; L60.8 Other nail disorders; L60.2 Onychogryphosis; B35.1 Tinea unguium | CPT/HCPCS: 11721 ==